=== PATIENT | male | born 1950 | race Caucasian/White ===

== ENCOUNTER 2020-09-18 03:33 | Outpatient (CLI) | payer OTHER, SELFPAY ==
[2020-09-18 19:05] LABS: SARS-CoV-2 RNA PCR Negative
== END 2020-09-18 03:34 | disposition home or self-care (01) ==
LOC: ANHCOVIDDT 03:33
PROVIDERS: Visit Provider Internal Medicine Gastroenterology
DX: Z01.812 Encounter for preprocedural laboratory examination (principal); Z20.828 Contact with and (suspected) exposure to other viral communicable diseases
CPT/HCPCS: 87635; C9803; U0003

== ENCOUNTER 2020-09-20 02:25 | Day surgery (SDC) | payer OTHER, SELFPAY ==
[2020-09-16 09:47] VITALS: BMI 39.2
[2020-09-20 08:47] VITALS: BP 140/79; PULSE 83; RESP 14; TEMP 37.1; O2SAT 95; BMI 38.5
[2020-09-20] MEDS: LACTATED RINGERS 1,000 ML 150 ML IV CONT (08:55)
--- NOTE | 2020-09-20 08:57 | WPDANESEPPF ---
Anes - Initial Pre Proc Eval Procedure: Operation Date: 09/20/20 09:30 Proposed Procedures p Colonoscopy - Thomas Magana MD Date/Time: 09/20/20 08:57 Surgeon: Thomas Magana MD Pre Op Diagnosis: Occult GI Bleed Patient Data Age: 70 Gender: M Height: 1.75 m Weight: 118.5 kg Last Vital Signs Temp 37.1 C 09/20/20 08:47 Pulse 83 09/20/20 08:47 Resp 14 09/20/20 08:47 BP 140/79 09/20/20 08:47 Pulse Ox 95 09/20/20 08:47 Allergies Allergy/AdvReac Type Severity Reaction Status Date / Time No Known Allergies Allergy Unknown Verified 09/20/20 08:43 Home Medications Medication Instructions Recorded Confirmed Type famotidine 40 mg PO DAILY 09/16/20 09/20/20 History losartan-hydrochlorothiazide 25 - 1,000 tablet PO DAILY 09/16/20 09/20/20 History meloxicam 15 mg PO PRN PRN 09/16/20 09/20/20 History mometasone 50 mcg INTRANASAL DAILY 09/16/20 09/20/20 History pantoprazole 40 mg PO DAILY 09/16/20 09/20/20 History pilocarpine HCl 5 mg PO DAILY 09/16/20 09/20/20 History Patient hx anesthesia problems: none Family hx anesthesia problems: none PMFSH Past Medical History Medical History (Updated 09/20/20 @ 08:58 by Anil Estrada MD) Chronic GERD HTN (hypertension) Obesity ANNIE on CPAP Social History Social History Smoking status: Never smoker Alcohol intake: current Alcohol use details: SOCIALLY Substance use: unknown Substance use type: does not use Living arrangements: with family Spiritual care concerns: No Anes - Eval Final PreProcedure Day of Procedure 09/20/20 08:57 Patient weight: obese Heart: regular rate and rhythm Lungs: clear to auscultation and normal air movement Airway: Mallampati scale class II Neurological: alert and oriented Last oral intake: >/= 8 hours ASA classification: III Emergent: no Anesthetic plan: proceed Anesthesia type and monitoring: general GIVS Informed Consent: The patient's anesthetic plan and its attendant risks and benefits were discussed with the patient/family/POA. Questions were solicited and answers provided to the satisfaction of the patient/family/POA.
--- NOTE | 2020-09-20 09:23 | WPDGICN ---
Assessment and Plan Assessment and plan (1) Occult blood in stools: Code(s): R19.5 - Other fecal abnormalities Status: Acute Assessment and Plan: Patient recently found to have Hemoccult-positive stools. Plan to evaluate with colonoscopy. Patient also reports a history of colon polyps of unknown histology type in 2011. Colonoscopy will follow separately. Further recommendations after endoscopy. (2) History of colon polyps: Code(s): Z86.010 - Personal history of colonic polyps Status: Acute GI Consult Note Consult date/time: 09/20/20 09:23 HPI: Pierce Phillip is a 70 year old male Seen in evaluation at the request of Dr. Jhony Giles. Patient was recently found to have positive Hemoccult in stool. He denies any obvious blood. He has had no pain. No bleeding. Past medical history is significant for colon polyps most recently 2011. Family history is noncontributory. patient presents today for colonoscopy. Review of Systems Review of Systems: All systems reviewed & are unremarkable except as noted in HPI and below PMFSH Past Medical History Medical History (Updated 09/20/20 @ 09:24 by Thomas Magana MD) Chronic GERD HTN (hypertension) Obesity ANNIE on CPAP Social History Social History Smoking status: Never smoker Alcohol intake: current Alcohol use details: SOCIALLY Substance use: unknown Substance use type: does not use Living arrangements: with family Spiritual care concerns: No Meds Home Medications and Allergies Home Medications Medication Instructions Recorded Confirmed Type famotidine 40 mg PO DAILY 09/16/20 09/20/20 History losartan-hydrochlorothiazide 25 - 1,000 tablet PO DAILY 09/16/20 09/20/20 History meloxicam 15 mg PO PRN PRN 09/16/20 09/20/20 History mometasone 50 mcg INTRANASAL DAILY 09/16/20 09/20/20 History pantoprazole 40 mg PO DAILY 09/16/20 09/20/20 History pilocarpine HCl 5 mg PO DAILY 09/16/20 09/20/20 History Allergies Allergy/AdvReac Type Severity Reaction Status Date / Time No Known Allergies Allergy Unknown Verified 09/20/20 08:43 Vital Signs Vital Signs - 24 hr 09/20/20 08:47 Temperature 98.7 F Pulse Rate 83 Respiratory Rate 14 Blood Pressure 140/79 Pulse Oximetry 95 Exam Narrative: Exam Narrative: Physical exam reveals patient to be alert. Vital signs stable. HEENT exam unremarkable. Lungs are clear to auscultation and percussion. Heart is without murmur or extra sounds. Abdominal exam bowel sounds are present soft nontender with no hepatosplenomegaly. Digital external rectal exam is normal.
[2020-09-20 09:48] VITALS: BP 110/62; PULSE 75; RESP 22; O2SAT 98
[2020-09-20 09:58] VITALS: BP 103/69; PULSE 77; RESP 25; O2SAT 96
[2020-09-20 10:13] VITALS: BP 122/70; PULSE 74; RESP 17; O2SAT 97
== END 2020-09-20 10:15 | disposition home or self-care (01) ==
PROVIDERS: Visit Provider Internal Medicine Gastroenterology
PROC: 0DJD8ZZ Inspection of Lower Intestinal Tract, Via Natural or Artificial Opening Endoscopic (ICD-10-PCS; CPT 45378; principal; 2020-09-20 09:30)
DX: R19.5 Other fecal abnormalities (principal); Z86.010 Personal history of colon polyps; K21.9 Gastro-esophageal reflux disease without esophagitis; K57.30 Diverticulosis of large intestine without perforation or abscess without bleeding; K64.8 Other hemorrhoids; I10 Essential (primary) hypertension; E66.9 Obesity, unspecified; G47.33 Obstructive sleep apnea (adult) (pediatric)
CPT/HCPCS: 45378; J2704; J7120

== ENCOUNTER 2020-10-10 09:30 | Outpatient (RCR) | payer OTHER, SELFPAY ==
--- NOTE | 2020-09-09 16:43 | PTOPEVAL ---
PHYSICAL THERAPY EVALUATION Thank you for referring Pierce Phillip to [facility] The patient is scheduled to be seen for therapy? 1-2 x/week for 4 weeks. Please review, sign, date and return this plan of care LUCY. I agree with and certify that the following plan of care is medically necessary. Referring Physician Date Attending Provider: Marcel Goldman MD *PT Outpatient Evaluation Start: 09/09/20 15:15 Freq: Status: Active Protocol: Document 09/09/20 15:15 MLV (Rec: 09/09/20 16:33 MLV [id number]) Therapy Assessment Status Evaluation Information Problem Diagnosis stefano. knee OA Onset 3-4 months Cause no injury/event Additional Evaluation Detail The patient has had trouble with knees but has become more noticeable. Patient reports increased gait deviations/limp . Subjective Information The patient believes he may Query Text:As Reported By Patient/ knee need knee replacement but Family is hoping to prolong need. The patient takes glucosamine which helps and takes meloxicam on occasion. Diagnostic Tests X-Rays For This Problem Yes: severe OA Previous Treatments Previous Treatments For This Problem cortisone injections prn Pain Assessment Timing of Pain Assessment Timing of Pain Assessment Pre-Treatment Pain Scale Pain Scale Used Numeric (1 - 10) Self Report Pain Assessment Bilateral Knee(s) Reported Pain Level 0 Pain Description Pressure Pain Frequency Chronic Lowest Pain Intensity 0 Greatest Pain Intensity 8 Pain Aggravating Factors Stair Climbing,Walking,Weight Bearing/Standing Other Pain Aggravating Factors supine; uses pillow to sleep well Pain Behaviors None Pain Relief Interventions Used By Inactivity/Rest,Medication Patient Pain Score Pain Score 0: Self Report Lower Extremity Range of Motion General Lower Extremity Range of Motion Gross Lower Extremity Range of Motion knee motion actively: left 0- Comments 122 degrees right knee 0-123 degrees Lower Extremity Muscle Strength Testing General Lower Extremity Strength Reason Not Measured WNL/Left,WNL/Right Gross Lower Extremity Strength muscle fatigue with 15 reps of tband exercises to LE's Muscle Length Testing Muscle Length Testing Piriformis w/Hip Neutral (L) Severe Tightness Duglas's Test Hip Muscle Length
--- NOTE | 2020-10-10 11:20 | PCPTNOTE ---
PHYSICAL THERAPY DISCHARGE SUMMARY Attending Provider: Marcel Goldman MD Patient:Pierce Phillip Date of :1950 Patient has completed 8 treatments since 09/09/2020, for stefano. knee pain/DJD. The patient is independent with his exercises and has improved in flexibility but the pain remains unchanged. The goals have been partially met and skilled PT needs have peaked. PT is discontinued at this time. Thank you for referring this patient to [facility]. Please review, sign, date and return this discharge summary LUCY. I have been updated about the patient's current status and I agree with discharge from the above service at this time. Referring Physician Date
== END 2020-10-10 15:17 | disposition home or self-care (01) ==
LOC: ANHPT 09:30
PROVIDERS: Visit Provider Orthopaedic Surgery
DX: M17.0 Bilateral primary osteoarthritis of knee (principal)
CPT/HCPCS: 97110; 97161

== ENCOUNTER 2020-12-06 17:25 | Emergency (ER) | payer OTHER, SELFPAY ==
[2020-12-06 17:34] VITALS: BP 129/73; PULSE 70; RESP 16; TEMP 36.4; O2SAT 97
[2020-12-06] MEDS: FLUORESCEIN SOD 1 MG/STRIP (18:44)
[2020-12-06] MEDS: DACRIOSE EYE IRRIGATION 118 ML BOTTLE (18:44)
--- NOTE | 2020-12-06 18:46 | PC.NURSE ---
[employer]le[employer] brand lacquer thinner is chemical that was in eye.
--- NOTE | 2020-12-06 19:48 | PC.NURSE ---
This nurse contacted poison control and spoke with [facility] pharmacist in regards to patient. [facility] recommended patient to have an eye exam performed to check for a corneal abrasion and supportive care. HUNTER notified.
--- NOTE | 2020-12-06 20:39 | ED.EYEPROB ---
HPI - Eye Problem General Chief complaint: Eye Problems Stated complaint: chemical in eye Time Seen by Provider: 12/06/20 19:34 Source: patient Mode of arrival: ambulatory Limitations: no limitations History of Present Illness HPI Narrative: This is a 70-year-old male that presents to the emergency department for foreign substance splashed in the right eye. Reports he was using lacquer thinner and accidentally splashed in of the right eye. Reports some irritation initially which has improved since onset. Reports he also felt like his vision was a little worse in the right eye. Reports this happened around 5. Denies swelling, abnormal drainage, eye pain, or vomiting. Related Data Home Medications Medication Instructions Recorded Confirmed famotidine 40 mg PO DAILY 09/16/20 09/20/20 losartan-hydrochlorothiazide 25 - 1,000 tablet PO DAILY 09/16/20 09/20/20 meloxicam 15 mg PO PRN PRN 09/16/20 09/20/20 mometasone 50 mcg INTRANASAL DAILY 09/16/20 09/20/20 pantoprazole 40 mg PO DAILY 09/16/20 09/20/20 pilocarpine HCl 5 mg PO DAILY 09/16/20 09/20/20 Allergies Allergy/AdvReac Type Severity Reaction Status Date / Time No Known Allergies Allergy Unknown Verified 12/06/20 18:43 Review of Systems Review of Systems: Narrative: CONSTITUTIONAL: Denies fever EYES: Reports visual changes. Denies redness, or discharge. All systems reviewed & are unremarkable except as noted in HPI and below PMFSH Past Medical History Medical History (Updated 12/06/20 @ 20:41 by Marnie Puckett PA-C) Chronic GERD HTN (hypertension) Obesity ANNIE on CPAP Social History Social History Smoking status: Never smoker Alcohol intake: current Substance use: unknown Substance use type: does not use Gender identity (if verbalized by the patient): Male Spiritual care concerns: No Exam Narrative: Exam Narrative: GENERAL: Well-appearing, well-nourished, and in no acute distress. HEAD: Normocephalic, atraumatic. EYES: PERRLA and EOMI. No conjunctival injection, swelling, or abnormal drainage. No foreign bodies noted, eyelid everted. No fluorescein stain uptake. Visual acuity in the right eye 20/40 and 20/20 in the left EXTREMITIES: Normal range of motion. No edema. SKIN: Warm, dry, no rash. NEURO: No focal deficits. Alert and oriented x3. PSYCH: Normal mood and affect Course Vital Signs Vital signs: Vital Signs Temperature 97.5 F L 12/06/20 17:34 Pulse Rate 70 12/06/20 17:34 Respiratory Rate 16 12/06/20 17:34 Blood Pressure 129/73 12/06/20 17:34 Pulse Oximetry 97 12/06/20 17:34 Temperature 97.5 F L 12/06/20 17:34 Pulse Rate 70 12/06/20 17:34 Respiratory Rate 16 12/06/20 17:34 Blood Pressure 129/73 12/06/20 17:34 Pulse Oximetry 97 12/06/20 17:34 MDM - Eye Problem MDM Narrative Medical decision making narrative: Patient presents to the emergency department for lacquer thinner that was accidentally splashed into the right eye. Did have some mild irritation in the eye initially which improved since onset. Eye was examined and washed out. We did speak with poison control that reported this is managed with symptomatic care. No concerning visual changes on visual acuity. No foreign bodies or corneal abrasions noted. Patient was instructed to follow-up with his eye doctor. He was given warnings to return the ER Critical Care Time Critical Care Time Critical Care Time: No Discharge Plan Discharge Clinical Impression: Irritation of right eye Patient Disposition: Home, Self-Care Condition: Stable Instructions: Eye Wash (Into the eye) Additional Instructions: Return to the emergency department if you experience fever, vision changes, eye pain, vomiting, or any other symptoms that are concerning to you Follow-up with your eye doctor Prescriptions: No Action pilocarpine HCl 5 mg tablet 5 mg PO DAILY RF: 0 meloxicam 15 mg tablet 15 mg PO PRN PRN (Reason: AR
[2020-12-06 20:48] VITALS: BP 137/88; PULSE 68; RESP 18; O2SAT 98
== END 2020-12-06 20:50 | disposition home or self-care (01) ==
PROVIDERS: Emergency Provider Emergency Medicine; PCP Family Medicine Adolescent Medicine
DX: H57.11 Ocular pain, right eye (principal); Z77.098 Contact with and (suspected) exposure to other hazardous, chiefly nonmedicinal, chemicals; K21.9 Gastro-esophageal reflux disease without esophagitis; I10 Essential (primary) hypertension; G47.33 Obstructive sleep apnea (adult) (pediatric); E66.9 Obesity, unspecified; Z68.37 Body mass index [BMI] 37.0-37.9, adult
CPT/HCPCS: 99283; A9270

== ENCOUNTER 2021-05-21 09:30 | Outpatient (CLI) | payer OTHER, SELFPAY ==
--- NOTE | 2021-05-21 12:00 | NEURO_ITS ---
Impression: # Complains of numbness of hands. # Severe bilateral Carpal Tunnel Syndrome, left more than right. # No ulnar neuropathy. # Abnormal needle/EMG exam in bilateral APB suggestive of denervation potentials. Nerve Conduction Studies Anti Sensory Summary Table Stim Site NR Peak (ms) P-T Amp (?V) Site1 Site2 Delta-P (ms) Dist (cm) Chase (m/s) Left Median Anti Sensory (2-3nd Digit) NO RESPONSE Wrist NR Wrist 2-3nd Digit 14.0 Wrist NR Wrist 2-3nd Digit 14.0 Right Median Anti Sensory (2-3nd Digit) NO RESPONSE Wrist 6.3 19.6 Wrist 2-3nd Digit 6.3 14.0 22 Wrist NR Wrist 2-3nd Digit 6.3 14.0 22 Left Radial Anti Sensory (Base 1st Digit) Wrist 2.3 14.9 Wrist Base 1st Digit 2.3 0.0 Right Radial Anti Sensory (Base 1st Digit) Wrist 2.4 10.0 Wrist Base 1st Digit 2.4 0.0 Left Ulnar Anti Sensory (5th Digit) Wrist 2.9 42.8 Wrist 5th Digit 2.9 14.0 48 Right Ulnar Anti Sensory (5th Digit) Wrist 2.8 30.3 Wrist 5th Digit 2.8 14.0 50 Motor Summary Table Stim Site NR Onset (ms) O-P Amp (mV) Site1 Site2 Delta-0 (ms) Dist (cm) Chase (m/s) Left Median Motor (Abd Poll Brev) NO RESPONSE Wrist NR Elbow Wrist 26.0 Elbow NR Right Median Motor (Abd Poll Brev) Wrist 12.3 1.6 Elbow Wrist 6.5 28.0 43 Elbow 18.8 1.6 Left Ulnar Motor (Abd Dig Minimi) Wrist 2.7 7.1 A Elbow Wrist 6.1 32.0 52 A Elbow 8.8 5.9 Right Ulnar Motor (Abd Dig Minimi) Wrist 2.6 8.6 A Elbow Wrist 5.8 31.0 53 A Elbow 8.4 7.3 F Wave Studies NR F-Lat (ms) L-R F-Lat (ms) Left Median (Mrkrs) (Abd Poll Brev) 34.15 0.82 Right Median (Mrkrs) (Abd Poll Brev) 34.97 0.82 Left Ulnar (Mrkrs) (Abd Dig Min) 32.91 1.66 Right Ulnar (Mrkrs) (Abd Dig Min) 31.25 1.66 EMG Side Muscle Nerve Root Ins Act Fibs Amp Dur Recrt Comment Right 1stDorInt Ulnar C8-T1 Nml Nml Nml Nml Nml Right Ext Indicis Radial (Post Int) C7-8 Nml Nml Nml Nml Nml Right Ext Digitorum Radial (Post Int) C7-8 Nml Nml Nml Nml Nml Right BrachioRad Radial C5-6 Nml Nml Nml Nml Nml Right PronatorTeres Median C6-7 Nml Nml Nml Nml Nml Right Abd Poll Brev Median C8-T1 Nml Nml Decr >12ms Reduced Left 1stDorInt Ulnar C8-T1 Nml Nml Nml Nml Nml Left Ext Indicis Radial (Post Int) C7-8 Nml Nml Nml Nml Nml Left Ext Digitorum Radial (Post Int) C7-8 Nml Nml Nml Nml Nml Left BrachioRad Radial C5-6 Nml Nml Nml Nml Nml Left PronatorTeres Median C6-7 Nml Nml Nml Nml Nml Left Abd Poll Brev Median C8-T1 Nml Nml Decr >12ms Reduced MTDD
== END 2021-05-21 09:31 | disposition home or self-care (01) ==
PROVIDERS: PCP Family Medicine Adolescent Medicine; Visit Provider Orthopaedic Surgery
DX: G56.03 Carpal tunnel syndrome, bilateral upper limbs (principal)
CPT/HCPCS: 95886; 95911

== ENCOUNTER 2021-06-16 13:14 | Outpatient (CLI) | payer OTHER, SELFPAY ==
--- NOTE | 2021-06-16 | ECG_ITS ---
Measurements Intervals [place] Rate: 72 P: -1 AL: 137 QRS: 6 QRSD: 109 T: 27 QT: 366 QTc: 403 Interpretive Statements SINUS RHYTHM CONSIDER INFERIOR INFARCT, AGE INDETERMINATE ABNORMAL ECG Electronically Signed On 06-16-2021 14:10:21 CDT by Phu Morton D.O.
[2021-06-16 14:21] LABS: Anion Gap 9 mmol/L (8-16); Blood Urea Nitrogen 25 mg/dL (9-20); Carbon Dioxide 28 mmol/L (22-30); Chloride 102 mmol/L (98-107); Estimated Glomerular Filt Rate > 60; Glucose 133 mg/dL (65-110); Potassium 3.9 mmol/L (3.4-5.0); Sodium 139 mmol/L (137-145)
== END 2021-06-16 13:15 | disposition home or self-care (01) ==
PROVIDERS: PCP Family Medicine Adolescent Medicine; Visit Provider Orthopaedic Surgery
DX: Z01.818 Encounter for other preprocedural examination (principal); R94.31 Abnormal electrocardiogram [ECG] [EKG]
CPT/HCPCS: 36415; 80048; 93005

== ENCOUNTER 2021-09-30 07:50 | Outpatient (CLI) | payer OTHER, SELFPAY ==
[2021-09-30 09:28] LABS: Basophils Percent Auto 0.5 % (0.2-1.2); Eosinophils Absolute Auto 0.2 K/mm3 (0-0.3); Eosinophils Percent Auto 3.5 % (0-4.4); Hematocrit 43.5 % (42.0-52.0); Hemoglobin 14.6 g/dL (14.0-18.0); Immature Granulocyte Absolute 0.01 K/mm3 (0.00-0.031); Immature Granulocyte Percent A 0.2 % (0-0.5); Lymphocytes Absolute Auto 1.43 K/mm3 (0.9-3.2); Lymphocytes Percent Auto 24.1 % (18.3-44.2); Mean Corpuscular HGB Conc 33.6 g/dl (32-36); Mean Corpuscular Hemoglobin 30.1 pg (26-34); Mean Corpuscular Volume 89.7 fl (80-100); Mean Platelet Volume 10.6 fl (7.4-10.4); Monocytes Absolute Auto 0.6 K/mm3 (0.1-0.6); Monocytes Percent Auto 10.1 % (2.6-8.5); Neutrophils Absolute Auto 3.7 K/mm3 (1.3-6.7); Neutrophils Percent Auto 61.6 % (45.5-73.1); Platelet Count Result 196 k/mm3 (150-375); Red Blood Count 4.85 M/mm3 (4.6-6.20); Red Cell Distribution Width 14.3 % (11.5-14.5); White Blood Count 5.9 K/mm3 (4.5-10.0)
[2021-09-30 09:37] LABS: Albumin Level 4.1 g/dL (3.5-5.1)
[2021-09-30 09:40] LABS: Anion Gap 9 mmol/L (8-16); Blood Urea Nitrogen 17 mg/dL (9-20); Calcium 9.6 mg/dL (8.4-10.2); Carbon Dioxide 28 mmol/L (22-30); Chloride 104 mmol/L (98-107); Estimated Glomerular Filt Rate > 60; Glucose 147 mg/dL (65-110); Potassium 4.1 mmol/L (3.4-5.0); Sodium 141 mmol/L (137-145)
[2021-09-30 09:51] LABS: Hemoglobin A1C 6.5 % (<5.7); Urine Cotinine NEGATIVE
== END 2021-09-30 07:51 | disposition home or self-care (01) ==
LOC: ANHSURGERY 07:54
PROVIDERS: Anesthesiology; PCP Family Medicine Adolescent Medicine; Visit Provider Orthopaedic Surgery
DX: M17.11 Unilateral primary osteoarthritis, right knee (principal); Z01.818 Encounter for other preprocedural examination; Z51.81 Encounter for therapeutic drug level monitoring
CPT/HCPCS: 36415; 80048; 80307; 82040; 83036; 85025

== ENCOUNTER → 2021-12-16 15:05 | Outpatient (CLI) | payer OTHER, SELFPAY ==
--- NOTE | ~2021-12-16 | XR_ITS ---
EXAMINATION: XR hip LT min 2V DATE: 12/16/2021 15:36 INDICATION: Left hip pain. TECHNIQUE: 2 views of left hip were obtained. COMPARISON: None. FINDINGS: Bone alignment is normal. No fracture. There is mild left hip osteoarthritis. IMPRESSION: 1. Mild left hip osteoarthritis. Reviewed, dictated and finalized at location A. COMPILER
--- NOTE | ~2021-12-16 | XR_ITS ---
EXAMINATION: XR sacrum coccyx min 2V DATE: 12/16/2021 15:36 INDICATION: Sacrococcygeal disorders, not elsewhere classified. TECHNIQUE: 3 views of the sacrum and coccyx were obtained. COMPARISON: None. FINDINGS: Bone alignment is normal. No fracture. There is severe lumbar spondylosis. There is mild os teoarthritis of the sacroiliac joints and hip joints. IMPRESSION: 1. Severe lumbar spondylosis. 2. Polyarticular osteoarthritis. Reviewed, dictated and finalized at location A. LEVEL GAME DESIGNER
== END ==
PROVIDERS: PCP Family Medicine Adolescent Medicine; Visit Provider Family Medicine Adolescent Medicine
DX: M53.3 Sacrococcygeal disorders, not elsewhere classified (principal); M47.896 Other spondylosis, lumbar region; M16.12 Unilateral primary osteoarthritis, left hip
CPT/HCPCS: 72220; 73502

== ENCOUNTER 2022-04-06 07:47 | Outpatient (CLI) | payer OTHER, SELFPAY ==
[2022-04-06 09:23] LABS: Basophils Percent Auto 0.7 % (0.2-1.2); Eosinophils Absolute Auto 0.2 K/mm3 (0-0.3); Eosinophils Percent Auto 3.2 % (0-4.4); Hemoglobin 14.1 g/dL (14.0-18.0); Immature Granulocyte Absolute 0.01 K/mm3 (0.00-0.031); Immature Granulocyte Percent A 0.2 % (0-0.5); Lymphocytes Absolute Auto 1.53 K/mm3 (0.9-3.2); Lymphocytes Percent Auto 25.6 % (18.3-44.2); Mean Corpuscular Volume 87.5 fl (80-100); Mean Platelet Volume 10.1 fl (7.4-10.4); Monocytes Absolute Auto 0.5 K/mm3 (0.1-0.6); Neutrophils Absolute Auto 3.7 K/mm3 (1.3-6.7); Neutrophils Percent Auto 62.3 % (45.5-73.1); Platelet Count Result 193 k/mm3 (150-375); Red Blood Count 5.03 M/mm3 (4.6-6.20); Red Cell Distribution Width 15.9 % (11.5-14.5)
[2022-04-06 09:29] LABS: Appearance Urine Clear (Clear); Bilirubin Urine Negative (Negative); Blood Urine Negative (Negative); Color Urine Yellow (Yellow); Glucose Urine UA Negative (Negative); Ketones Urine Negative (Negative); Leukocyte Esterase Ur Negative LEU/UL (Negative); Nitrate Urine Negative (Negative); Protein Urine Negative (Negative); Urobilinogen Urine 0.2 mg/dL (<2.0)
[2022-04-06 09:39] LABS: INR 1.1; Prothrombin Time 14.1 Seconds (11.1-14.7)
[2022-04-06 09:40] LABS: Partial Thromboplastin Time 28.2 SECONDS (22.3-36.8)
[2022-04-06 09:41] LABS: Urine Cotinine NEGATIVE
[2022-04-06 09:43] LABS: Add Urine Microscopic? NO
[2022-04-06 09:56] LABS: Hemoglobin A1C 6.4 % (<5.7)
[2022-04-06 09:57] LABS: Anion Gap 6 mmol/L (8-16); Blood Urea Nitrogen 18 mg/dL (9-20); Calcium 9.2 mg/dL (8.4-10.2); Carbon Dioxide 29 mmol/L (22-30); Chloride 105 mmol/L (98-107); Estimated Glomerular Filt Rate > 60; Glucose 157 mg/dL (65-110); Potassium 3.9 mmol/L (3.4-5.0); Sodium 140 mmol/L (137-145)
== END 2022-04-06 07:48 | disposition home or self-care (01) ==
LOC: ANHSURGERY 07:51
PROVIDERS: PCP Family Medicine Adolescent Medicine; Visit Provider Orthopaedic Surgery
DX: M17.12 Unilateral primary osteoarthritis, left knee (principal); Z01.818 Encounter for other preprocedural examination
CPT/HCPCS: 80048; 80307; 81003; 82040; 83036; 85025; 85610; 85730; 87081

== ENCOUNTER 2022-04-29 00:50 | Day surgery (SDC) | payer OTHER, SELFPAY ==
[2022-04-06 08:00] VITALS: BMI 38.6
--- NOTE | 2022-04-06 08:37 | PC.NURSE ---
Report to the Outpatient Waiting Room, entrance under the green pavilion located off [facility], at time __0600 on date _04/29/22 . OR Time: _729 . - You and your visitor will be asked a series of questions to screen for COVID 19 for your protection. - Only one visitor is allowed at this time. - The patient visitor is requested to leave or wait in car when not with patient. - A mask is required within the hospital. Patients may have clear liquids (water, carbonated beverages, clear teas, apple juice) until 3 hours prior to surgery with a maximum of 20 ounces. - No food from midnight until time of surgery - Infants may have breast milk until 4 hours before surgery, infant formula 6 hours prior to surgery. - Children will be allowed to drink immediately following surgery. If applicable, please bring a bottle or sippy cup to assist with drinking. Juice, water, soda, and popsicles are readily available. For infants on formula, please bring formula the day of surgery. Pacifiers are allowed. Take the following medications with a SIP of water the morning of surgery: __EYE DROPS Medications to discontinue per physician _ASPIRIN ,MELOXICAM PER DR CANSECO ALL VITAMINS AND SUPPLEMENTS 3 DAYS PRE OP Date to take last dose__ALL VITAMNS AND SUPPLEMENTS 04/25/22 Please no make-up, nail hebrew, hairspray, perfume, deodorant, or body powder the day of surgery. No jewelry (including any body piercings) or valuables the day of surgery, leave them at home. Please take a shower or bath the night before, or the morning of, surgery with an antibacterial soap. Wear comfortable, loose fitting clothing. Children are encouraged to wear pajamas. - Jewelry must be removed prior to entering the operating room. Rings and piercings that are not removed may be cut off. - The hospital will not accept responsibility for valuables. - Please leave all valuables, including medications, at home the day of surgery. If you are going home after surgery, a licensed class a truck driver must drive you home. - NO public transportation without another adult. - We recommend that an adult stay with you for 24 hours following discharge. - We also recommend that you do not drive, make important decision, drink alcoholic beverages, or take any drugs that were not prescribed by your health care provider for at least 24 hours after your discharge time. Follow any additional instructions given to you from your surgeon. If you or anyone in your household have experienced Covid symptoms in the past week, please notify your surgeon or the nurse liaison at the phone number below for possible testing. VERBAL AND WRITTEN instructions given to _PATIENT and asked if any additional questions and then verbalized understanding. Patient advised to call surgeon office or pre surgery nurse liaison [phone] if any additional questions.
[2022-04-06 08:58] VITALS: BP 136/77; PULSE 83; RESP 18; TEMP 37.4; O2SAT 99
[2022-04-29] VITALS (13 sets, daily range): BP systolic 123–152; BP diastolic 69–82; PULSE 72–93; RESP 9–16; TEMP 36.3–36.9; O2SAT 91–100
--- NOTE | ~2022-04-29 | XR_ITS ---
EXAMINATION: XR knee LT 2V DATE: 04/29/2022 10:40 INDICATION: Total left knee arthroplasty. Postop. TECHNIQUE: 2 views of left knee were obtained. COMPARISON: Left knee radiographs 03/12/2022 FINDINGS: There is a total left knee arthroplasty in near-anatomic alignment. No fracture. There has been resection of osteophytes of the patella. There are loose bodies in a Torres's cyst. There is gas in the knee joint and soft tissues, consistent with recent surgery. Anterior skin stewart are noted. IMPRESSION: 1. Total left knee arthroplasty in near-anatomic alignment. 2. Loose bodies in a Torres's cyst. Reviewed, dictated and finalized at location A.
[2022-04-29] MEDS: TRANEXAMIC ACID 1,000MG/ISO100 1,000 MG/100 ML BAG 200 MG IVPB (06:53)
[2022-04-29] MEDS: ACETAMINOPHEN 500 MG TABLET 1000 MG PO (06:54)
--- NOTE | 2022-04-29 07:09 | WPDANESEPPF ---
Anes - Initial Pre Proc Eval Procedure: Operation Date: 04/29/22 07:30 Proposed Procedures p Left Total Knee Arthroplasty - Durga Tucker MD Date/Time: 04/29/22 07:09 Surgeon: Durga Tucker MD Pre Op Diagnosis: Lt Knee DJD Patient Data Age: 71 Gender: M Height: 1.77 m Weight: 120.5 kg Last Vital Signs Temp 37.4 C 04/06/22 08:58 Pulse 83 04/06/22 08:58 Resp 18 04/06/22 08:58 BP 136/77 04/06/22 08:58 Pulse Ox 99 04/06/22 08:58 O2 Del Method Room Air 04/06/22 08:58 Allergies Allergy/AdvReac Type Severity Reaction Status Date / Time No Known Allergies Allergy Unknown Verified 04/29/22 06:27 Home Medications Medication Instructions Recorded Confirmed Type meloxicam 15 mg tablet 15 mg PO PRN PRN ARTHRITIS 09/16/20 04/29/22 History mometasone 50 mcg/actuation nasal 50 mcg intranasal QAM 09/16/20 04/29/22 History spray pantoprazole 40 mg tablet,delayed 40 mg PO DAILY 09/16/20 04/29/22 History release atorvastatin 20 mg tablet 20 mg PO DAILY 09/30/21 04/29/22 History azelastine 205.5 mcg (0.15 %) 2 spray intranasal PRN PRN 09/30/21 04/29/22 History nasal spray Congestion calcium 500 mg tablet 500 mg PO DAILY 09/30/21 04/29/22 History cholecalciferol (vitamin D3) 50 50 mcg PO DAILY 09/30/21 04/29/22 History mcg (2,000 unit) tablet cyanocobalamin (vitamin B-12) 1,000 mcg PO DAILY 09/30/21 04/29/22 History 1,000 mcg tablet (Vitamin B-12) latanoprost 0.005 % eye drops 1 drp EACH EYE HS 09/30/21 04/29/22 History multivitamin 1 tablet PO DAILY 09/30/21 04/29/22 History omega-3 fatty acids-vitamin E 1 cap PO DAILY 09/30/21 04/29/22 History 1,000 mg capsule vitamin E 1,000 unit tablet 1 tablet PO DAILY 09/30/21 04/29/22 History famotidine 40 mg tablet 40 mg PO HS #90 tabs 12/25/21 04/29/22 Rx testosterone cypionate 200 mg/mL 200 mg IM .once every 3 weeks #4 mL 01/05/22 04/29/22 Rx intramuscular oil (Depo-Testosterone) aspirin 81 mg tablet,delayed 81 mg PO DAILY 01/19/22 04/29/22 History release (Adult Aspirin Regimen) lutein 6 mg capsule 6 mg PO DAILY 01/19/22 04/29/22 History simethicone 125 mg capsule (Gas 125 mg PO DAILY PRN BLOATING 01/19/22 04/29/22 History Relief (simethicone)) losartan 100 1 tablet PO QAM #100 tabs 03/26/22 04/29/22 Rx mg-hydrochlorothiazide 25 mg tablet acetaminophen 650 mg 650 mg PO Q12H PRN Pain 04/06/22 04/29/22 History tablet,extended release (Tylenol 8 Hour) carboxymethylcellulose sodium 1 % 2 drp EACH EYE DAILY 04/06/22 04/29/22 History eye liquid gel drops coQ10 (ubiquinol) 100 mg capsule 100 mg PO DAILY 04/06/22 04/29/22 History sildenafil 100 mg tablet 100 mg PO PRN ERECTIAL DYSFUNCTION 04/06/22 04/29/22 History clotrimazole-betamethasone 1 1 applic topical BID 2 weeks #45 04/20/22 04/29/22 Rx %-0.05 % topical cream grams glucosamine sulf dipot 2 cap PO DAILY 04/20/22 04/29/22 History chlr,msm,chond 550 mg-C 30 mg-mari 1 mg capsule (Glucosamine Chondroitin) pilocarpine HCl 5 mg tablet 10 mg PO TID 04/20/22 04/29/22 History Patient hx anesthesia problems: none Family hx anesthesia problems: none Results Review: All pre-operative results and documents have been reviewed as part of the pre-operative evaluation. [facility] Past Medical History Medical History Bilateral primary osteoarthritis of knee Carpal tunnel syndrome on both sides Chronic GERD Fungal infection History of colon polyps HTN (hypertension) Knee cartilage, torn, right Left hip pain Male erectile dysfunction, unspecified Normal colonoscopy 09/17 Repeat 09/27 Obesity Occult blood in stools ANNIE on CPAP Osteoarthritis of left hip 12/20 mild Other ill-defined heart diseases Diastolic dysfunction Echo 11/18 Presbycusis, bilateral Pure hyperglyceridemia Sacrocoxalgia of right side of sacrum Testicular hypofunction Type 2 diabetes mellitus without complicatio
--- NOTE | 2022-04-29 07:10 | WPDHPUPDATE1 ---
History and Physical Update Update Date/Time: 04/29/22 07:10 History and Physical has been reviewed, including an updated exam of the patient. There are NO changes in the patient's condition. Risks, benefits, and alternatives have been discussed and questions answered. Patient agrees to proceed with procedure.
[2022-04-29] MEDS: ceFAZolin 3 GM/D5W 100 ML 100 ML IVPB (07:27)
[2022-04-29] MEDS: GENTAMICIN BONE CEMENT REFOBACIN 1 EACH TOPICAL (08:10)
[2022-04-29] MEDS: TRANEXAMIC ACID 1,000 MG/10 ML AMPUL 1000 MG IV PUSH (09:24)
[2022-04-29] MEDS: LACTATED RINGERS 1,000 ML 30 ML IV CONT (10:21)
--- NOTE | 2022-04-29 10:31 | WPDANESPNB ---
Anes - Peripheral Nerve Block Date/Time: 04/29/22 10:31 I have discussed with the patient/family/POA the placement of a peripheral nerve block for post-operative pain management, including associated risks, benefits, complications, and side effects. Alternative methods of post-operative analgesia were detailed. Questions were solicited and answers provided to the satisfaction of the patient/family/POA. Time-Out: A pre-procedural Time-Out was completed immediately before starting the procedure and confirmed: Patient Identification, Site, Procedure, Patient Position and the Availability of Requisite Equipment. Clinical Indications: Acute post-operative pain management requested by the operative surgeon. Nerve Block Insertion Note Anes-nerve block: adductor canal Patient position: supine Skin prep: chlorhexidine Needle: 22 gauge, stimulating, insulated echogenic needle. Needle length: 80 mm Technique: ultrasound Technique comment: done post op no extra sedation Injectate: bupivacaine 0.5% with epi 5 mcg/ml (30ml no epi) Observations: tolerated well Complications: none Procedure start time:: 1031 Procedure end time:: 1033
[2022-04-29 10:37] LABS: Glucose Point of Care 173 mg/dl (65-105)
--- NOTE | 2022-04-29 10:40 | W.PM.PROC2 ---
Procedure Note - Detailed Date of Procedure 04/29/22 Pre-op Diagnosis Lt Knee DJD Post-op Diagnosis Same Procedure Performed L TKA Surgeon Durga Tucker MD Anesthesia General Description of Procedure THE LEFT KNEE WAS PREPPED AND DRAPED IN THE STERILE FASHION. A MIDLINE SKIN INCISION WAS MADE. A MEDIAL PARAPATELLAR ARTHROTOMY WAS MADE. THE PATELLA WAS EVERTED. THERE WAS TRICOMPARTMENT DJD. THERE WAS MINIMAL PATELLA DJD. AN INTRAMEDULLARY ANTONIO WAS PLACED IN THE FEMUR. A DISTAL FEMORAL CUT WAS MADE IN 5 DEGREES OF VALGUS REMOVING APPROXIMATELY 9 MM OF BONE FROM THE DISTAL FEMUR. THE FEMUR WAS SIZED TO 67.5. A 67.5 FEMORAL CUTTING BLOCK WAS PLACED IN 3 DEGREES OF EXTERNAL ROTATION AND IN ALIGNMENT WITH GABI'S LINE AND THE TRANSEPICONDYLAR AXIS. ANTERIOR POSTERIOR AND CHAMFER CUTS WERE MADE. THE CUTS WERE EXCELLENT. NEXT AN INTRAMEDULLARY CUTTING GUIDE WAS PLACED IN THE TIBIA. A TRANS TIBIAL CUT WAS MADE ALONG THE LONG AXIS OF THE TIBIA. APPROXIMATELY 10 MM OF BONE WAS REMOVED FROM THE HIGH SIDE OF THE TIBIA. THE TIBIA WAS THEN PLANED TO A SMOOTH SURFACE. POSTERIOR FEMORAL OSTEOPHYTES WERE REMOVED FROM THE FEMORAL CONDYLES. A 75 TIBIAL TRIAL WAS PLACED IN ALIGNMENT WITH THE 1/3 MEDIAL ASPECT OF THE TIBIAL TUBERCLE. THEN A 67.5 FEMORAL TRIAL COMPONENT WAS PLACED. BOTH HAD EXCELLENT FITS. EVENTUALLY A 12 MM CR POLYETHYLENE TRIAL COMPONENT WAS PLACED. THE KNEE WAS TAKEN THROUGH A RANGE OF MOTION. THE KNEE CAME OUT TO FULL EXTENSION. THERE WAS NO ABNORMAL TILT TO THE PATELLA. THERE WAS GOOD A/P AND VARUS/VALGUS STABILITY. THERE WAS NO EXCESSIVE ROLL BACK WITH FLEXION. THE TRIAL COMPONENTS WERE REMOVED. THEN A 67.5 FEMORAL COMPONENT AND 75 TIBIAL COMPONENT WITH A 12 CR POLYETHYLENE COMPONENT WERE CEMENTED INTO PLACE. ONCE THE CEMENT WAS HARD THE KNEE WAS TAKEN THROUGH A ROM AGAIN AND FOUND TO BE STABLE WITH NO PATELLA TILT NO EXCESSIVE ROLL BACK WITH FLEXION AND GOOD STABILITY WITH COMPLETE AND FULL EXTENSION. THE KNEE WAS IRRIGATED WITH STERILE BETADINE AND WATER FOR ABOUT 3 MINUTES. THE BLEEDERS WERE CAUTERIZED. THE ARTHROTOMY WAS REPAIRED WITH NUMBER 1 VICRYL. THE SUB CUTANEOUS LAYER WITH 2-0 VICRYL AND THE SKIN WITH DEE DEE. THE WOUND WAS WASHED AND A STERILE DRESSING WAS APPLIED. PATIENT WAS EXTUBATED. Estimated Blood Loss -350.0 Pathology None sent Complications No immediate complications Condition Stable Disposition PACU
--- NOTE | 2022-04-29 10:43 | SUR.PHASEI ---
DR. URBAN ADMINISTERED NERVE BLOCK TO LEFT THIGH. PORTABLE XRAY TO LEFT KNEE DONE PER TECH.
--- NOTE | 2022-04-29 11:18 | SUR.PHASEI ---
SBAR SENT TO 2 [facility].
--- NOTE | 2022-04-29 12:08 | ADMGEN ---
This patient, Pierce Phillip, was admitted to Medical Room 252-01. Patient/family oriented to hospital policies and general routines including ID bracelet, bed and alarms, visiting hours, pain management, procedures, bathroom and other care routines, personal items, smoking policy, room service/diet, and visiting hours. Information on how to activate the Rapid Response Team has been discussed. Patient/Family are encouraged to report perceived risks to care and to ask questions if they do not understand what they are told or what they should do.
[2022-04-29] MEDS: SODIUM CHLORIDE 0.9% IV 1,000 ML 125 ML IV CONT (12:38)
[2022-04-29] MEDS: ONDANSETRON INJ 4 MG/2 ML VIAL IV PUSH (12:39)
[2022-04-29] MEDS: ceFAZolin 2 GM/D5W 50 ML 2 GM/50 ML BAG IVPB ×2 (16:47→23:46)
[2022-04-29] MEDS: SENNA/DOCUSATE SODIUM TABLET 2 TAB PO (17:36)
[2022-04-29] MEDS: oxyCODONE/ACETAMINOPHEN (*CRX) 5-325 MG TABLET 1 TABLET PO (21:06)
[2022-04-29] MEDS: FAMOTIDINE 20 MG TABLET 40 MG PO (21:06)
[2022-04-29] MEDS: LATANOPROST 0.005% OP SOLN 2.5 ML BTL 1 DROP EACH EYE (21:07)
[2022-04-30 01:05] VITALS: BP 115/70; PULSE 89; RESP 16; TEMP 36.6; O2SAT 98
[2022-04-30 05:54] LABS: Basophils Percent Auto 0.2 % (0.2-1.2); Hematocrit 35.2 % (42.0-52.0); Hemoglobin 10.9 g/dL (14.0-18.0); Immature Granulocyte Absolute 0.07 K/mm3 (0.00-0.031); Immature Granulocyte Percent A 0.5 % (0-0.5); Lymphocytes Absolute Auto 1.27 K/mm3 (0.9-3.2); Lymphocytes Percent Auto 9.2 % (18.3-44.2); Mean Corpuscular Hemoglobin 27.6 pg (26-34); Mean Corpuscular Volume 89.1 fl (80-100); Mean Platelet Volume 10.8 fl (7.4-10.4); Monocytes Absolute Auto 1.5 K/mm3 (0.1-0.6); Monocytes Percent Auto 10.8 % (2.6-8.5); Neutrophils Percent Auto 79.3 % (45.5-73.1); Platelet Count Result 194 k/mm3 (150-375); Red Blood Count 3.95 M/mm3 (4.6-6.20); Red Cell Distribution Width 15.5 % (11.5-14.5); White Blood Count 13.8 K/mm3 (4.5-10.0)
[2022-04-30 06:12] VITALS: BP 134/74; PULSE 87; RESP 16; TEMP 37.1; O2SAT 100
[2022-04-30 06:14] LABS: Anion Gap 2 mmol/L (8-16); Blood Urea Nitrogen 19 mg/dL (9-20); Calcium 8.3 mg/dL (8.4-10.2); Carbon Dioxide 29 mmol/L (22-30); Chloride 104 mmol/L (98-107); Estimated CRCL calculation 85 ml/min; Estimated Glomerular Filt Rate > 60; Glucose 149 mg/dL (65-110); Potassium 4.3 mmol/L (3.4-5.0); Sodium 135 mmol/L (137-145)
[2022-04-30] MEDS: ceFAZolin 2 GM/D5W 50 ML 2 GM/50 ML BAG IVPB (06:34)
[2022-04-30] MEDS: ASPIRIN 325 MG ENTERIC TABLET 650 MG PO (08:29)
[2022-04-30] MEDS: SENNA/DOCUSATE SODIUM TABLET 2 TAB PO (08:29)
[2022-04-30] MEDS: CHOLECALCIFEROL 1,000 UNITS TABLET 2000 UNITS PO (08:29)
[2022-04-30] MEDS: CALCIUM CARBONATE (OSCAL) 500 MG TABLET PO (08:30)
[2022-04-30] MEDS: hydroCHLOROthiazide 25 MG TABLET PO (08:30)
[2022-04-30] MEDS: VITAMIN E 1,000 UNIT CAPSULE 1000 UNIT PO (08:30)
[2022-04-30] MEDS: ATORVASTATIN 20 MG TABLET PO (08:31)
[2022-04-30] MEDS: polyethylene glycoL 3350 17 GM POWD.PACK PO (08:31)
[2022-04-30] MEDS: LOSARTAN POTASSIUM 100 MG TABLET PO (08:31)
[2022-04-30] MEDS: FLUTICASONE PROPIONATE 0.05% NA SPR 16 GM BTL (*BKC) 2 SPRAY NASAL (08:32)
[2022-04-30] MEDS: ARTIFICIAL TEARS OPHTH SOLN 15 ML BOTTLE 2 DROP EACH EYE (08:34)
[2022-04-30] MEDS: oxyCODONE/ACETAMINOPHEN (*CRX) 5-325 MG TABLET 1 TABLET PO (08:45)
--- NOTE | 2022-04-30 09:21 | PM.PNORT ---
Progress Note: A&P Assessment and Plan (1) S/P total knee replacement: Qualifiers: Laterality: left Qualified Code(s): Z96.652 - Presence of left artificial knee joint Code(s): Z96.659 - Presence of unspecified artificial knee joint Status: Acute Assessment and Plan: POD #1 : Left TKA Continue PT/OT. WBAT. Walker. HIGH FALL RISK. Continue pain control. Ice Knee. Protect skin. DVT prophylaxis with Aspirin. SCDs. Incentive Spirometry Use reviewed. Monitor Dressing. Change prior to discharge. Bowel Regimen. Dispo: Home with home health pending progress with PT/OT Time Spent With Patient Time with patient: less than 15 minutes Subjective Subjective Date/Time Seen: 04/30/22 09:21 Post Op day: 1 Interval history: POD #1: Left TKA Patient doing well. Sitting up in chair. Working with OT at time of exam. Pain well controlled. Hopeful for discharge home today. Review of Systems Review of Systems: All systems reviewed & are unremarkable except as noted in HPI and below Constitutional: Constitutional: Denies fever(s) and Denies headache(s) ENT: Denies headache(s) Cardiovascular: Cardiovascular: Denies chest pain, Denies diaphoresis, Denies lightheadedness, Denies palpitations and Denies dyspnea Respiratory: Respiratory: Denies dyspnea Gastrointestinal: Gastrointestinal: Denies abdominal pain, Denies constipation, Reports nausea and Denies vomiting Genitourinary: Genitourinary: Denies dysuria and Reports nocturia Musculoskeletal: Musculoskeletal: Reports arthralgias (Left Knee ), Reports joint swelling (Left Knee ) and Reports limited range of motion (ROM limited due to recent surgical intervention LEFT Knee ) Neurologic: Denies headache(s) Endocrine: Endocrine: Denies palpitations Exam Const: General: comfortable and no acute distress Resp: Effort & Inspection: normal respiratory effort GI: GI Palp: Yes Soft to palpation, No Tenderness to palpation present (GI) and No Guarding due to palpation present (GI) Skin: Wounds: wounds noted (see extremity assessment ) Neuro: Cognition (Neuro): normal cognition Other: NV intact aside from block. Moves toes. Sensation intact to light touch. +ankle dorsiflexion/plantarflexion. Extrem: Left lower extremity: normal to inspection, normal capillary refill, knee Details: tenderness (diffuse ) Location: of the patella, swelling (moderate consistent to recent surgery ), abnormal ROM (limited due to recent surgery ) Details: pain with active ROM and pain with passive ROM and ecchymosis (as expected with recent surgery. NO hematoma. ), lower leg (Negative Amarjit's Sign ), ankle (+ankle dorsiflexion/plantarflexion ) Details: normal to inspection, no edema and normal ROM; no tenderness and no swelling and foot Details: normal capillary refill, toes with normal ROM, vascular exam Details: dorsalis pedis pulse present and motor-sensory exam light-touch normal; no tenderness Other: Incision left TKA dressing c/d/i. No hematoma. No signs of infection. No wound dehiscence. Psych: Mental Status: mental status grossly normal Objective Data Vital Signs Vital Signs: Vital Signs - 24 hr 04/29/22 10:21 04/29/22 10:35 04/29/22 10:50 Temperature 36.9 C Pulse Rate 84 81 82 Respiratory Rate 13 11 L 13 Blood Pressure 129/69 123/72 145/81 H Pulse Oximetry 98 98 97 Oxygen Delivery Simple Face Mask Simple Face Mask Room Air Oxygen Flow Rate 8 8 04/29/22 11:05 04/29/22 11:20 04/29/22 11:35 Temperature Pulse Rate 84 81 76 Respiratory Rate 13 9 L 9 L Blood Pressure 147/79 H 140/81 141/80 H Pulse Oximetry 98 99 99 Oxygen Delivery Room Air Room Air Room Air Oxygen Flow Rate 04/29/22 12:38 04/29/22 13:09 04/29/22 12:00 Temperature 36.8 C Pulse Rate 75 Respiratory Rate 12 Blood Pressure 144/77 H Pulse Oximetry 91 Oxygen Delivery Room Air Room Air Oxygen Flow Rate 04/29/22 12:15 04/29/22 12:45 04/29/22 13:45
[2022-04-30 10:12] VITALS: BP 130/71; PULSE 92; RESP 14; TEMP 36.9; O2SAT 98
[2022-04-30 10:57] VITALS: O2SAT 97
--- NOTE | 2022-04-30 12:49 | PM.DS ---
DS: Admitting Diagnosis Discharge Date 04/30/22 Admitting Diagnosis Left Knee DJD DS: Discharge Diagnosis Discharge Diagnosis (1) S/P total knee replacement: Qualifiers: Laterality: left Qualified Code(s): Z96.652 - Presence of left artificial knee joint Code(s): Z96.659 - Presence of unspecified artificial knee joint Status: Acute Assessment and Plan: POD #1 : Left TKA Continue PT/OT. WBAT. Walker. HIGH FALL RISK. Continue pain control. Ice Knee. Protect skin. DVT prophylaxis with Aspirin. SCDs. Incentive Spirometry Use reviewed. Monitor Dressing. Change prior to discharge. Bowel Regimen. Dispo: Home with home health pending progress with PT/OT DS: Summary Hospital Course Reason for hospitalization: Left TKA Hospital Course: 71 year old male admitted s/p left TKA for postoperative medical management, pain control and mobilization with PT/OT. Patient progressed very well on POD #1. His pain was well controlled and he was cleared by PT/OT to be safe to be discharge home with home health. Discharge instructions reviewed. Patient will follow up in the outpatient orthopedic clinic in approximately 3 weeks. Status at Discharge Functional status at discharge: uses cane/walker Overall status at discharge: patient is progressing back to baseline Time Spent with Patient Time attestation: Total time spent providing and/or coordinating discharge services: Exam Const: General: comfortable and no acute distress Resp: Effort & Inspection: normal respiratory effort Skin: Wounds: wounds noted (see extremity assessment ) Neuro: Cognition (Neuro): normal cognition Other: NV intact aside from block. Moves toes. Sensation intact to light touch. +ankle dorsiflexion/plantarflexion. Extrem: Left lower extremity: normal to inspection, normal capillary refill, knee Details: tenderness (diffuse ) Location: of the patella, swelling (moderate consistent to recent surgery ), abnormal ROM (limited due to recent surgery ) Details: pain with active ROM and pain with passive ROM and ecchymosis (as expected with recent surgery. NO hematoma. ), lower leg (Negative Amarjit's Sign ), ankle (+ankle dorsiflexion/plantarflexion ) Details: normal to inspection, no edema and normal ROM; no tenderness and no swelling and foot Details: normal capillary refill, toes with normal ROM, vascular exam Details: dorsalis pedis pulse present and motor-sensory exam light-touch normal; no tenderness Other: Incision left TKA dressing c/d/i. No hematoma. No signs of infection. No wound dehiscence. Psych: Mental Status: mental status grossly normal DS: Data Data Completed and Pending Labs on day of discharge: Labs from last 24 hours 04/30/22 04/30/22 05:16 05:16 WBC 13.8 H RBC 3.95 L Hgb 10.9 L D Hct 35.2 L MCV 89.1 MCH 27.6 MCHC 31.0 L RDW 15.5 H Plt Count 194 MPV 10.8 H Immature Gran % (Auto) 0.5 Neut % (Auto) 79.3 H Lymph % (Auto) 9.2 L [place] % (Auto) 10.8 H Eos % (Auto) 0.0 Baso % (Auto) 0.2 Lymph # (Auto) 1.27 [place] # (Auto) 1.5 H Eos # (Auto) 0.0 Baso # (Auto) 0.0 Abs Immat Gran (auto) 0.07 H Absolute Neuts (auto) 11.0 H Absolute Nucleated RBC 0.0 Nucleated RBC % 0.0 Sodium 135 L Potassium 4.3 Chloride 104 Carbon Dioxide 29 Anion Gap 2 L BUN 19 Creatinine 0.90 Estim Creat Clear Calc 85 Estimated GFR > 60 Glucose 149 H Calcium 8.3 L Discharge Plan Discharge Patient Disposition: Home Health Service Discharge Instructions: Post Op Total Knee Replacement Instructions Dr. Durga Tucker [phone] Your dressing will be changed prior to your discharge. You will be sent home with one additional dressing to be changed on post op day 7 by the home health RN. Your stewart will be removed on the 14th day after surgery and steri-strips will be placed. Please practice good hand hygiene and do not touch your incision in order to p
== END 2022-04-30 13:35 | disposition home health service (06) ==
LOC: ANHSURGERY 06:05 → ANH2MED 12:00
PROVIDERS: PCP Family Medicine Adolescent Medicine; Visit Provider Orthopaedic Surgery
PROC: (CPT 27447; principal; 2022-04-29 07:30)
DX: M17.12 Unilateral primary osteoarthritis, left knee (principal); G89.18 Other acute postprocedural pain; G47.33 Obstructive sleep apnea (adult) (pediatric); K21.9 Gastro-esophageal reflux disease without esophagitis; I11.9 Hypertensive heart disease without heart failure; E78.1 Pure hyperglyceridemia; E11.9 Type 2 diabetes mellitus without complications; Z79.82 Long term (current) use of aspirin; Z87.891 Personal history of nicotine dependence; E66.9 Obesity, unspecified; Z68.38 Body mass index [BMI] 38.0-38.9, adult
CPT/HCPCS: 27447; 64447; 36415; 73560; 80048; 80307; 81003; 82040; 82948; 83036; 85025; 85610; 85730; 86850; 86900; 86901; 87081; 97110; 97116; 97161; 97165; 97530; 97535; A9270; C1713; C1776; J0171; J0690; J1100; J1170; J1885; J2250; J2270; J2405; J2704; J2795; J3010; J7030; J7120

== ENCOUNTER 2022-07-01 09:52 | Outpatient (CLI) | payer OTHER, SELFPAY ==
--- NOTE | 2022-07-01 10:41 | ECG_ITS ---
Measurements Intervals [place] Rate: 78 P: -7 [place]: 134 QRS: -5 QRSD: 113 T: 15 QT: 358 QTc: 408 Interpretive Statements SINUS RHYTHM BASELINE ARTIFACT CANNOT RULE OUT INFERIOR INFARCT, AGE INDETERMINATE ABNORMAL ECG COMPARED TO ECG 06/16/2021 14:07:51 Electronically Signed On 07-01-2022 12:56:15 CDT by Kemal Mccauley M.D.
[2022-07-01 11:15] LABS: Appearance Urine Clear (Clear); Bilirubin Urine Negative (Negative); Blood Urine Negative (Negative); Color Urine Yellow (Yellow); Glucose Urine UA Negative (Negative); Ketones Urine Negative (Negative); Leukocyte Esterase Ur Negative LEU/UL (Negative); Nitrate Urine Negative (Negative); Protein Urine Negative (Negative); Urobilinogen Urine 0.2 mg/dL (<2.0)
[2022-07-01 11:16] LABS: Basophils Percent Auto 0.4 % (0.2-1.2); Eosinophils Absolute Auto 0.3 K/mm3 (0-0.3); Eosinophils Percent Auto 4.1 % (0-4.4); Hematocrit 40.3 % (42.0-52.0); Hemoglobin 12.8 g/dL (14.0-18.0); Immature Granulocyte Absolute 0.04 K/mm3 (0.00-0.031); Immature Granulocyte Percent A 0.6 % (0-0.5); Lymphocytes Absolute Auto 1.58 K/mm3 (0.9-3.2); Lymphocytes Percent Auto 22.5 % (18.3-44.2); Mean Corpuscular HGB Conc 31.8 g/dl (32-36); Mean Corpuscular Hemoglobin 27.2 pg (26-34); Mean Corpuscular Volume 85.6 fl (80-100); Mean Platelet Volume 10.5 fl (7.4-10.4); Monocytes Absolute Auto 0.5 K/mm3 (0.1-0.6); Monocytes Percent Auto 7.4 % (2.6-8.5); Neutrophils Absolute Auto 4.6 K/mm3 (1.3-6.7); Platelet Count Result 173 k/mm3 (150-375); Red Blood Count 4.71 M/mm3 (4.6-6.20); Red Cell Distribution Width 15.9 % (11.5-14.5)
[2022-07-01 11:25] LABS: INR 1.1; Prothrombin Time 13.6 Seconds (11.1-14.7)
[2022-07-01 11:26] LABS: Urine Cotinine NEGATIVE
[2022-07-01 11:29] LABS: Add Urine Microscopic? NO
[2022-07-01 11:29] LABS: Albumin Level 3.8 g/dL (3.5-5.1); Anion Gap 9 mmol/L (8-16); Blood Urea Nitrogen 18 mg/dL (9-20); Calcium 9.4 mg/dL (8.4-10.2); Carbon Dioxide 28 mmol/L (22-30); Chloride 101 mmol/L (98-107); Estimated Glomerular Filt Rate > 60; Glucose 193 mg/dL (65-110); Potassium 3.8 mmol/L (3.4-5.0); Sodium 138 mmol/L (137-145)
[2022-07-01 13:04] LABS: Hemoglobin A1C 6.7 % (<5.7)
== END 2022-07-01 09:53 | disposition home or self-care (01) ==
PROVIDERS: PCP Family Medicine Adolescent Medicine; Visit Provider Orthopaedic Surgery
DX: Z01.818 Encounter for other preprocedural examination (principal); M17.10 Unilateral primary osteoarthritis, unspecified knee; I10 Essential (primary) hypertension; Z51.81 Encounter for therapeutic drug level monitoring; Z79.899 Other long term (current) drug therapy
CPT/HCPCS: 80048; 80307; 81003; 82040; 83036; 85025; 85610; 85730; 87081; 93005

== ENCOUNTER 2022-07-02 13:45 | Outpatient (RCR) | payer OTHER, SELFPAY ==
--- NOTE | 2022-06-08 13:11 | PTOPEVAL ---
PHYSICAL THERAPY EVALUATION AND PLAN OF CARE Thank you for referring Pierce Phillip to [facility].? The patient is scheduled to be seen for therapy? 1x/week for 3-4 weeks. Please review, sign, date and return this plan of care LUCY. I agree with and certify that the following plan of care is medically necessary. Referring Physician Date Attending Provider: Durga Tucker MD Referring Provider: Durga Tucker MD Diagnosis left TKA Onset 04/29/22 Subjective Information Pierce is here today 6 wks s/p Query Text:As Reported By Patient/ left TKA. He is ambulating Family with a straight cane. He has been continuing to do his HEP. States he has no pain. Lower Extremity Range of Motion Knee Range of Motion Left Knee Flexion Range of Motion - Active 106 Knee Extension Range of Motion - Active 0 Query Text: Lower Extremity Muscle Strength Testing Hip Strength Left Hip Flexion Strength 4+ Good + Hip Extension Strength 3 Fair Hip Abduction Strength 3- Fair - Knee Strength Left Knee Flexion Strength 4+ Good + Knee Extension Strength 4+ Good + Extremity Circumference Assessment Circumference Assessment Location Left Body Part Knee Site Descriptor (Trilla) suprapatellar Circumference (cm) 51 Noninvolved Side Circumference (cm) 46 Gait Assessment Gait Pattern Assessment Gait Pattern Trendelenburg Gait Gait Pattern Observed Trunk Lateral Lean - Left, Trunk Lateral Lean - Right PT Clinical Summary Pierce is a 71 yo male presenting to physical therapy 6 wks s/p left TKA. Due to surgical intervention, he continues to demonstrate less than functional knee flexion and demonstrates significant edema compared to the right side. He also demonstrates impaired gait pattern with significant Trendelenburg indicating poor motor activation and control of glutes and trunk. He will require skilled physical therapy to promote optimal strength and ROM and to provide edema management.
--- NOTE | 2022-07-02 16:56 | PCPTNOTE ---
PHYSICAL THERAPY DISCHARGE NOTE Attending Provider: Durga Tucker MD Patient:Pierce Phillip Date of :1950 Pierce participated in physical therapy following TKA. He demonstrates 0-121 knee ROM, 5/5 strength, and gait speed of 3.2ft/second. He will have his other knee replaced within the next month. Discharge from PT at this time. The goals have been met. Thank you for referring this patient to [facility]. Please review, sign, date and return this discharge summary LUCY. I have been updated about the patient's current status and I agree with discharge from the above service at this time. Referring Physician Date
== END 2022-07-03 10:50 | disposition home or self-care (01) ==
LOC: ANHPT 13:45
PROVIDERS: PCP Family Medicine Adolescent Medicine; Visit Provider Orthopaedic Surgery
DX: Z47.1 Aftercare following joint replacement surgery (principal); Z96.652 Presence of left artificial knee joint
CPT/HCPCS: 97110; 97112; 97161; 97530

== ENCOUNTER 2022-07-15 00:37 | Day surgery (SDC) | payer OTHER, SELFPAY ==
[2022-07-01 10:03] VITALS: BP 145/75; PULSE 88; RESP 16; TEMP 37.2; O2SAT 99; BMI 38.0
--- NOTE | 2022-07-01 10:22 | PC.NURSE ---
Report to the Outpatient Waiting Room, entrance under the green pavilion located off [facility], at time _0600_ on date _[id number]_. OR Time: _0730_. - You and your visitor will be asked a series of questions to screen for COVID 19 for your protection. - Only one visitor is allowed at this time. - The patient visitor is requested to leave or wait in car when not with patient. - A mask is required within the hospital. Patients may have clear liquids (water, carbonated beverages, clear teas, apple juice) until 3 hours prior to surgery with a maximum of 20 ounces. - No food from midnight until time of surgery Take the following medications with a SIP of water the morning of surgery: __None Medications to discontinue per physician ___All Vitamins and supplements Date to take last [id number]___[id number] Please no make-up, nail azeri, hairspray, perfume, deodorant, or body powder the day of surgery. No jewelry (including any body piercings) or valuables the day of surgery, leave them at home. Please take a shower or bath the night before, or the morning of, surgery with an antibacterial soap. Wear comfortable, loose fitting clothing. - Jewelry must be removed prior to entering the operating room. Rings and piercings that are not removed may be cut off. - The hospital will not accept responsibility for valuables. - Please leave all valuables, including medications, at home the day of surgery. If you are going home after surgery, a licensed lifter/driver must drive you home. - NO public transportation without another adult. - We recommend that an adult stay with you for 24 hours following discharge. - We also recommend that you do not drive, make important decision, drink alcoholic beverages, or take any drugs that were not prescribed by your health care provider for at least 24 hours after your discharge time. Follow any additional instructions given to you from your surgeon. If you or anyone in your household have experienced Covid symptoms in the past week, please notify your surgeon or the nurse liaison at the phone number below for possible testing. Telephone instructions given to _Patient____and asked if any additional questions and then verbalized understanding. Patient advised to call surgeon office or pre surgery nurse liaison [phone] if any additional questions.
[2022-07-15] VITALS (17 sets, daily range): BP systolic 127–163; BP diastolic 63–80; PULSE 68–87; RESP 10–17; TEMP 36.2–36.5; O2SAT 95–100
--- NOTE | ~2022-07-15 | XR_ITS ---
EXAMINATION: XR knee RT 2V DATE: 07/15/2022 10:56 CDT INDICATION: Right total knee arthroplasty TECHNIQUE: 2 views right knee FINDINGS: There is a right total knee arthroplasty in expected position. Subcutaneous gas with fluid and air in the joint and overlying skin stewart are consistent with recent surgery. No evidence of p eriprosthetic fracture. IMPRESSION: 1. Recent right total knee arthroplasty. Reviewed, dictated and finalized at location B.
--- NOTE | 2022-07-15 06:43 | WPDANESEPPF ---
Anes - Initial Pre Proc Eval Procedure: Operation Date: 07/15/22 07:30 Proposed Procedures p Right Total Knee Arthroplasty - Durga Tcuker MD Date/Time: 07/15/22 06:43 Surgeon: Durga Tucker MD Pre Op Diagnosis: right knee DJD Patient Data Age: 72 Gender: M Height: 1.78 m Weight: 119.7 kg Last Vital Signs Temp 37.2 C 07/01/22 10:03 Pulse 88 07/01/22 10:03 Resp 16 07/01/22 10:03 BP 145/75 H 07/01/22 10:03 Pulse Ox 99 07/01/22 10:03 O2 Del Method Room Air 07/01/22 10:03 Allergies Allergy/AdvReac Type Severity Reaction Status Date / Time No Known Allergies Allergy Unknown Verified 07/15/22 06:38 Home Medications Medication Instructions Recorded Confirmed Type meloxicam 15 mg tablet 15 mg PO PRN PRN ARTHRITIS 09/16/20 07/01/22 History mometasone 50 mcg/actuation nasal 50 mcg intranasal QAM 09/16/20 07/01/22 History spray azelastine 205.5 mcg (0.15 %) 2 spray intranasal PRN PRN 09/30/21 07/01/22 History nasal spray Congestion calcium 500 mg tablet 500 mg PO DAILY 09/30/21 07/01/22 History cholecalciferol (vitamin D3) 50 50 mcg PO DAILY 09/30/21 07/01/22 History mcg (2,000 unit) tablet cyanocobalamin (vitamin B-12) 1,000 mcg PO DAILY 09/30/21 07/01/22 History 1,000 mcg tablet (Vitamin B-12) latanoprost 0.005 % eye drops 1 drp EACH EYE HS 09/30/21 07/01/22 History multivitamin 1 tablet PO DAILY 09/30/21 07/01/22 History omega-3 fatty acids-vitamin E 1 cap PO DAILY 09/30/21 07/01/22 History 1,000 mg capsule vitamin E 1,000 unit tablet 1 tablet PO DAILY 09/30/21 07/01/22 History famotidine 40 mg tablet 40 mg PO HS #90 tabs 12/25/21 07/01/22 Rx testosterone cypionate 200 mg/mL 200 mg IM .once every 3 weeks #4 mL 01/05/22 07/01/22 Rx intramuscular oil (Depo-Testosterone) aspirin 81 mg tablet,delayed 81 mg PO DAILY 01/19/22 07/01/22 History release (Adult Aspirin Regimen) lutein 6 mg capsule 6 mg PO DAILY 01/19/22 07/01/22 History simethicone 125 mg capsule (Gas 125 mg PO DAILY PRN BLOATING 01/19/22 07/01/22 History Relief (simethicone)) losartan 100 1 tablet PO QAM #100 tabs 03/26/22 07/01/22 Rx mg-hydrochlorothiazide 25 mg tablet coQ10 (ubiquinol) 100 mg capsule 100 mg PO DAILY 04/06/22 07/01/22 History sildenafil 100 mg tablet 100 mg PO PRN ERECTIAL DYSFUNCTION 04/06/22 07/01/22 History glucosamine sulf dipot 2 cap PO DAILY 04/20/22 07/01/22 History chlr,msm,chond 550 mg-C 30 mg-mari 1 mg capsule (Glucosamine Chondroitin) pilocarpine HCl 5 mg tablet 10 mg PO TID 04/20/22 07/01/22 History oxycodone-acetaminophen 5 mg-325 1 - 2 tablet PO Q6H PRN pain #56 04/30/22 07/01/22 Rx mg tablet tabs sennosides 8.6 mg-docusate sodium 1 tablet PO BID 30 days #60 tabs 04/30/22 07/01/22 Rx 50 mg tablet (Senokot-S) pantoprazole 40 mg tablet,delayed 40 mg PO DAILY #90 tabs 05/05/22 07/01/22 Rx release atorvastatin 20 mg tablet 20 mg PO DAILY #90 tabs 05/22/22 07/01/22 Rx peg 400-propylene glycol (PF) 0.4 1 drp EACH EYE DAILY 07/01/22 07/01/22 History %-0.3 % eye drops in a dropperette (Systane (PF)) chlorhexidine gluconate 4 % 1 applic topical ONCE #237 mL 07/08/22 Rx topical liquid (Hibiclens) Patient hx anesthesia problems: none Family hx anesthesia problems: none Results Review: All pre-operative results and documents have been reviewed as part of the pre-operative evaluation. COUNTS INCLUDE 234 BEDS AT THE [facility] Past Medical History Medical History Bilateral primary osteoarthritis of knee Carpal tunnel syndrome on both sides Chronic GERD Degenerative joint disease of knee Fungal infection History of colon polyps HTN (hypertension) Knee cartilage, torn, right Left hip pain Male erectile dysfunction, unspecified Normal colonoscopy 09/17 Repeat 09/27 Obesity Occult blood in stools ANNIE on CPAP Osteoarthritis of left hip 12/20 mild Other ill-defined heart diseases Diastolic dysfunction
[2022-07-15] MEDS: ACETAMINOPHEN 500 MG TABLET 1000 MG PO (06:52)
[2022-07-15] MEDS: LACTATED RINGERS 1,000 ML 30 ML IV CONT ×2 (07:00→10:42)
--- NOTE | 2022-07-15 07:05 | WPDHPUPDATE1 ---
History and Physical Update Update Date/Time: 07/15/22 07:05 History and Physical has been reviewed, including an updated exam of the patient. There are NO changes in the patient's condition. Risks, benefits, and alternatives have been discussed and questions answered. Patient agrees to proceed with procedure.
[2022-07-15] MEDS: TRANEXAMIC ACID 1,000MG/ISO100 1,000 MG/100 ML BAG 200 MG IVPB (07:06)
--- NOTE | 2022-07-15 07:16 | WPDANESPNB ---
Anes - Peripheral Nerve Block Date/Time: 07/15/22 07:16 I have discussed with the patient/family/POA the placement of a peripheral nerve block for post-operative pain management, including associated risks, benefits, complications, and side effects. Alternative methods of post-operative analgesia were detailed. Questions were solicited and answers provided to the satisfaction of the patient/family/POA. Time-Out: A pre-procedural Time-Out was completed immediately before starting the procedure and confirmed: Patient Identification, Site, Procedure, Patient Position and the Availability of Requisite Equipment. Clinical Indications: Acute post-operative pain management requested by the operative surgeon. Nerve Block Insertion Note Anes-nerve block: femoral right Patient position: supine Skin prep: chlorhexidine Needle: 22 gauge, stimulating, insulated echogenic needle. Needle length: 50 mm Technique: nerve stimulation lost at (mA) (0.4) Observations: tolerated well Complications: none Procedure start time:: 710 Procedure end time:: 715
[2022-07-15] MEDS: ceFAZolin 2 GM/D5W 50 ML 2 GM/50 ML BAG IVPB ×3 (07:27→23:32)
[2022-07-15] MEDS: ceFAZolin SODIUM 1 GM VIAL (07:27)
[2022-07-15] MEDS: GENTAMICIN BONE CEMENT REFOBACIN 1 EACH TOPICAL (08:55)
[2022-07-15] MEDS: TRANEXAMIC ACID 1,000 MG/10 ML AMPUL 1000 MG IV PUSH (09:30)
[2022-07-15] MEDS: KETOROLAC 30 MG/ML VIAL (*BKC) IV PUSH (10:05)
[2022-07-15 11:04] LABS: Glucose Point of Care 184 mg/dl (65-105)
--- NOTE | 2022-07-15 11:04 | SUR.PHASEI ---
1046 xrays of right knee done.
--- NOTE | 2022-07-15 11:13 | W.PM.PROC2 ---
Procedure Note - Detailed Date of Procedure 07/15/22 Pre-op Diagnosis right knee DJD Post-op Diagnosis Same Procedure Performed R TKA Surgeon Durga Tucker MD Anesthesia General Description of Procedure THE RIGHT KNEE WAS PREPPED AND DRAPED IN THE STERILE FASHION. A MIDLINE SKIN INCISION WAS MADE. A MEDIAL PARAPATELLAR ARTHROTOMY WAS MADE. THE PATELLA WAS EVERTED. THERE WAS TRICOMPARTMENT DJD. THERE WAS MINIMAL PATELLA DJD. AN INTRAMEDULLARY ANTONIO WAS PLACED IN THE FEMUR. A DISTAL FEMORAL CUT WAS MADE IN 5 DEGREES OF VALGUS REMOVING APPROXIMATELY 9 MM OF BONE FROM THE DISTAL FEMUR. THE FEMUR WAS SIZED TO 67.5. A 67.5 FEMORAL CUTTING BLOCK WAS PLACED IN 3 DEGREES OF EXTERNAL ROTATION AND IN ALIGNMENT WITH GABI'S LINE AND THE TRANSEPICONDYLAR AXIS. ANTERIOR POSTERIOR AND CHAMFER CUTS WERE MADE. THE CUTS WERE EXCELLENT. NEXT AN INTRAMEDULLARY CUTTING GUIDE WAS PLACED IN THE TIBIA. A TRANS TIBIAL CUT WAS MADE ALONG THE LONG AXIS OF THE TIBIA. APPROXIMATELY 10 MM OF BONE WAS REMOVED FROM THE HIGH SIDE OF THE TIBIA. THE TIBIA WAS THEN PLANED TO A SMOOTH SURFACE. POSTERIOR FEMORAL OSTEOPHYTES WERE REMOVED FROM THE FEMORAL CONDYLES. A 75 TIBIAL TRIAL WAS PLACED IN ALIGNMENT WITH THE 1/3 MEDIAL ASPECT OF THE TIBIAL TUBERCLE. THEN A 67.5 FEMORAL TRIAL COMPONENT WAS PLACED. BOTH HAD EXCELLENT FITS. EVENTUALLY A 12 MM POLYETHYLENE TRIAL COMPONENT WAS PLACED. THE KNEE WAS TAKEN THROUGH A RANGE OF MOTION. THE KNEE CAME OUT TO FULL EXTENSION. THERE WAS NO ABNORMAL TILT TO THE PATELLA. THERE WAS GOOD A/P AND VARUS/VALGUS STABILITY. THERE WAS NO EXCESSIVE ROLL BACK WITH FLEXION. THE TRIAL COMPONENTS WERE REMOVED. THEN A 67.5 FEMORAL COMPONENT AND 75 TIBIAL COMPONENT WITH A 12 POLYETHYLENE COMPONENT WERE CEMENTED INTO PLACE. ONCE THE CEMENT WAS HARD THE KNEE WAS TAKEN THROUGH A ROM AGAIN AND FOUND TO BE STABLE WITH NO PATELLA TILT NO EXCESSIVE ROLL BACK WITH FLEXION AND GOOD STABILITY WITH COMPLETE AND FULL EXTENSION. THE KNEE WAS IRRIGATED WITH STERILE BETADINE AND WATER FOR ABOUT 3 MINUTES. THE BLEEDERS WERE CAUTERIZED. THE ARTHROTOMY WAS REPAIRED WITH NUMBER 1 VICRYL. THE SUB CUTANEOUS LAYER WITH 2-0 VICRYL AND THE SKIN WITH DEE DEE. THE WOUND WAS WASHED AND A STERILE DRESSING WAS APPLIED. PATIENT WAS EXTUBATED. Estimated Blood Loss -200.0 Pathology None sent Complications No immediate complications Condition Stable Disposition PACU
--- NOTE | 2022-07-15 12:15 | SUR.PHASEI ---
1200pt stable and available to transfer to inpt room, will hold pt in op recovery,assigned room unavailable. family aware and able to visit,pt placed hearing aides in.
[2022-07-15] MEDS: ONDANSETRON INJ 4 MG/2 ML VIAL IV PUSH (13:20)
[2022-07-15] MEDS: SODIUM CHLORIDE 0.9% IV 1,000 ML 125 ML IV CONT (14:59)
[2022-07-15 16:05] LABS: Estimated CRCL calculation 87 ml/min; Estimated Glomerular Filt Rate > 60
[2022-07-15] MEDS: SENNA/DOCUSATE SODIUM TABLET 2 TAB PO (16:23)
[2022-07-15] MEDS: CELECOXIB 200 MG CAPSULE PO (18:08)
[2022-07-15] MEDS: LATANOPROST 0.005% OP SOLN 2.5 ML BTL 1 DROP EACH EYE (21:33)
[2022-07-15] MEDS: FAMOTIDINE 20 MG TABLET 40 MG PO (21:34)
[2022-07-15] MEDS: ASPIRIN 325 MG ENTERIC TABLET PO (21:34)
[2022-07-15] MEDS: oxyCODONE/ACETAMINOPHEN (*CRX) 5-325 MG TABLET 1 TABLET PO (21:35)
[2022-07-15] MEDS: WATER FOR IRRIGATION, STERILE 1,000 ML BOTTLE 1000 ML (22:00)
[2022-07-16 01:25] VITALS: BP 134/73; PULSE 90; RESP 18; TEMP 36.3; O2SAT 97
[2022-07-16 04:33] VITALS: BP 127/76; PULSE 81; RESP 14; TEMP 36.5; O2SAT 97
[2022-07-16 05:45] LABS: Basophils Percent Auto 0.2 % (0.2-1.2); Eosinophils Percent Auto 0.1 % (0-4.4); Hematocrit 34.5 % (42.0-52.0); Hemoglobin 10.9 g/dL (14.0-18.0); Immature Granulocyte Absolute 0.04 K/mm3 (0.00-0.031); Immature Granulocyte Percent A 0.3 % (0-0.5); Lymphocytes Absolute Auto 1.32 K/mm3 (0.9-3.2); Lymphocytes Percent Auto 10.7 % (18.3-44.2); Mean Corpuscular HGB Conc 31.6 g/dl (32-36); Mean Corpuscular Hemoglobin 27.3 pg (26-34); Mean Corpuscular Volume 86.3 fl (80-100); Mean Platelet Volume 10.4 fl (7.4-10.4); Monocytes Absolute Auto 1.3 K/mm3 (0.1-0.6); Monocytes Percent Auto 10.5 % (2.6-8.5); Neutrophils Absolute Auto 9.7 K/mm3 (1.3-6.7); Neutrophils Percent Auto 78.2 % (45.5-73.1); Platelet Count Result 158 k/mm3 (150-375); Red Cell Distribution Width 15.9 % (11.5-14.5); White Blood Count 12.4 K/mm3 (4.5-10.0)
[2022-07-16 05:57] LABS: Anion Gap 8 mmol/L (8-16); Blood Urea Nitrogen 23 mg/dL (9-20); Calcium 8.3 mg/dL (8.4-10.2); Carbon Dioxide 27 mmol/L (22-30); Chloride 101 mmol/L (98-107); Estimated CRCL calculation 97 ml/min; Estimated Glomerular Filt Rate > 60; Glucose 169 mg/dL (65-110); Potassium 4.2 mmol/L (3.4-5.0); Sodium 136 mmol/L (137-145)
[2022-07-16] MEDS: ceFAZolin 2 GM/D5W 50 ML 2 GM/50 ML BAG IVPB (06:15)
[2022-07-16] MEDS: oxyCODONE/ACETAMINOPHEN (*CRX) 5-325 MG TABLET 1 TABLET PO (06:17)
[2022-07-16] MEDS: FLUTICASONE PROPIONATE 0.05% NA SPR 16 GM BTL (*BKC) 2 SPRAY NASAL (08:23)
[2022-07-16] MEDS: polyethylene glycoL 3350 17 GM POWD.PACK PO (08:24)
[2022-07-16] MEDS: SIMETHICONE 125 MG CHEW TAB PO (08:24)
[2022-07-16] MEDS: CELECOXIB 200 MG CAPSULE PO (08:24)
[2022-07-16] MEDS: LOSARTAN POTASSIUM 100 MG TABLET PO (08:25)
[2022-07-16] MEDS: ATORVASTATIN 20 MG TABLET PO (08:25)
[2022-07-16] MEDS: CYANOCOBALAMIN 1,000 MCG TABLET 1000 MCG PO (08:25)
[2022-07-16] MEDS: MULTIVITAMINS THERAPEUTIC TAB (*BKC) 1 TABLET PO (08:26)
[2022-07-16] MEDS: ASPIRIN 325 MG ENTERIC TABLET PO (08:26)
[2022-07-16] MEDS: VITAMIN E 1,000 UNIT CAPSULE 1000 UNIT PO (08:27)
[2022-07-16] MEDS: CALCIUM CARBONATE (OSCAL) 500 MG TABLET PO (08:27)
[2022-07-16] MEDS: hydroCHLOROthiazide 25 MG TABLET PO (08:27)
[2022-07-16] MEDS: ARTIFICIAL TEARS OPHTH SOLN 15 ML BOTTLE 1 DROP EACH EYE (08:30)
--- NOTE | 2022-07-16 09:15 | PCOTNOTE ---
Attempted to see patient twice this am, however first attempt patient was with nursing and received breakfast tray. Second attempt, patient was with physical therapy.
[2022-07-16 10:30] VITALS: BP 131/65; PULSE 76; RESP 16; TEMP 36.1; O2SAT 100
--- NOTE | 2022-07-16 12:21 | WPDANESPN ---
Anes - Prog Note Post-Op Date/Time: 07/16/22 12:21 Vital Signs: Last Vital Signs Temp 36.1 C L 07/16/22 10:30 Pulse 76 07/16/22 10:30 Resp 16 07/16/22 10:30 BP 131/65 07/16/22 10:30 Pulse Ox 100 07/16/22 10:30 O2 Del Method Room Air 07/16/22 08:25 O2 Flow Rate 10 07/15/22 11:10 Pain Score (VAS): 0 I/O: Intake & Output 07/15/22 07/16/22 07/16/22 23:59 07:59 15:59 Intake Total 350 2050 240 Output Total 300 1150 Balance 50 900 240 Laboratory Tests 07/16/22 05:35 07/16/22 05:35 07/15/22 07/16/22 07/16/22 15:46 05:35 05:35 WBC 12.4 H RBC 4.00 L Hgb 10.9 L Hct 34.5 L MCV 86.3 MCH 27.3 MCHC 31.6 L RDW 15.9 H Plt Count 158 MPV 10.4 Immature Gran % (Auto) 0.3 Neut % (Auto) 78.2 H Lymph % (Auto) 10.7 L [place] % (Auto) 10.5 H Eos % (Auto) 0.1 Baso % (Auto) 0.2 Lymph # (Auto) 1.32 [place] # (Auto) 1.3 H Eos # (Auto) 0.0 Baso # (Auto) 0.0 Abs Immat Gran (auto) 0.04 H Absolute Neuts (auto) 9.7 H Absolute Nucleated RBC 0.0 Nucleated RBC % 0.0 Sodium 136 L Potassium 4.2 Chloride 101 Carbon Dioxide 27 Anion Gap 8 BUN 23 H Creatinine 0.90 0.80 Estim Creat Clear Calc 87 97 Estimated GFR > 60 > 60 Glucose 169 H Calcium 8.3 L Patient Feedback: Patient satisfied with anesthetic care.
[2022-07-16 14:20] VITALS: BP 135/76; PULSE 80; RESP 16; TEMP 36.6; O2SAT 97
--- NOTE | 2022-07-16 16:59 | PM.PNORT ---
Progress Note: A&P Assessment and Plan (1) History of arthroplasty of right knee: Code(s): Z96.651 - Presence of right artificial knee joint Status: Acute Assessment and Plan: POD 1 DOING WELL. OK TO DC HOME. F/U IN 3 WEEKS Plan POD 1 DOING WELL. OK TO DC HOME. F/U IN 3 WEEKS. Subjective Subjective Date/Time Seen: 07/16/22 16:59 POD 1 DOING WELL. GOOD PROGRESS WITH PT. NO CALF PAIN Exam Extrem: Other: VSS AFEBRILE DRESSING DRY NV INTACT NEG HOMANS SIGN CALF SOFT NON TENDER Objective Data Vital Signs Vital Signs: Vital Signs - 24 hr 07/15/22 19:27 07/15/22 23:00 07/16/22 01:25 Temperature 36.4 C 36.3 C L Pulse Rate 84 90 Respiratory Rate 16 18 Blood Pressure 145/80 H 134/73 Pulse Oximetry 97 97 Oxygen Delivery CPAP 07/16/22 04:33 07/16/22 10:30 07/16/22 08:25 Temperature 36.5 C 36.1 C L Pulse Rate 81 76 Respiratory Rate 14 16 Blood Pressure 127/76 131/65 Pulse Oximetry 97 100 Oxygen Delivery Room Air 07/16/22 14:20 Temperature 36.6 C Pulse Rate 80 Respiratory Rate 16 Blood Pressure 135/76 Pulse Oximetry 97 Oxygen Delivery Intake/Output Intake/Output: Intake & Output 07/13/22 07/14/22 07/15/22 07/16/22 23:59 23:59 23:59 23:59 Intake Total 550 2530 Output Total 675 1150 Balance -125 1380 Meds/Results Medications: Active Medications Generic Name Dose Route Start Last Admin Trade Name Freq PRN Reason Stop Dose Admin Acetaminophen 1,000 mg 07/15/22 13:42 Acetaminophen 500 Mg Tablet PO Q6H PRN Pain Rated 1-3 Artificial Tears 1 drop 07/16/22 09:00 07/16/22 08:30 Artificial Tears Ophth Soln 15 Ml Bottle EACH EYE 08/15/22 08:59 1 drop DAILY MAGALIS Administration Aspirin 325 mg 07/15/22 21:00 07/16/22 08:26 Aspirin 325 Mg Enteric Tablet PO 325 mg Q12HR MAGALIS Administration Atorvastatin Calcium 20 mg 07/16/22 09:00 07/16/22 08:25 Atorvastatin 20 Mg Tablet PO 20 mg DAILY MAGALIS Administration Calcium Carbonate 500 mg 07/16/22 09:00 07/16/22 08:27 Calcium Carbonate (Oscal) 500 Mg Tablet PO 500 mg QAM MAGALIS Administration Celecoxib 200 mg 07/15/22 17:00 07/16/22 08:24 Celecoxib 200 Mg Capsule PO 200 mg BIDWM MAGALIS Administration Cyanocobalamin 1,000 mcg 07/16/22 09:00 07/16/22 08:25 Cyanocobalamin 1,000 Mcg Tablet PO 1,000 mcg DAILY MAGALIS Administration Diazepam 5 mg 07/15/22 13:42 Diazepam (*Crx) 5 Mg Tablet PO Q8H PRN Spasms Diphenhydramine HCl 25 mg 07/15/22 13:42 Diphenhydramine Hcl Inj 50 Mg/Ml Vial IV PUSH Q6H PRN Itching Famotidine 40 mg 07/15/22 21:00 07/15/22 21:34 Famotidine 20 Mg Tablet PO 40 mg HS MAGALIS Administration Fluticasone Propionate 2 spray 07/16/22 09:00 07/16/22 08:23 Fluticasone Propionate 0.05% Na Spr 16 Gm Btl (*Bkc) NASAL 2 spray QAM MAGALIS Administration Hydrochlorothiazide 25 mg 07/16/22 09:00 07/16/22 08:27 Hydrochlorothiazide 25 Mg Tablet PO 25 mg QAM MAGALIS Administration Latanoprost 1 drop 07/15/22 21:00 07/15/22 21:33 Latanoprost 0.005% Op Soln 2.5 Ml Btl EACH EYE 1 drop HS MAGALIS Administration Losartan Potassium 100 mg 07/16/22 09:00 07/16/22 08:25 Losartan Potassium 100 Mg Tablet PO 100 mg DAILY MAGALIS Administration Meloxicam 15 mg 07/15/22 13:57 Meloxicam 7.5 Mg Tablet PO DAILY PRN ARTHRITIS PAIN Multivitamins Therapeutic 1 tablet 07/16/22 09:00 07/16/22 08:26 Multivitamins Therapeutic Tab (*Bkc) PO 1 tablet DAILY MAGALIS Administration Naloxone HCl 0.1 mg 07/15/22 13:42 Naloxone Hcl 0.4 Mg/Ml Vial IV PUSH Q2M PRN Opiate Reversal Non-Formulary Medication 10 mg 07/15/22 13:42 07/15/22 18:02 [place] Hcl PO 08/14/22 13:41 Not Given TID MAGALIS Non-Formulary Medication 100 mg 07/15/22 13:42 Sildenafil PO 08/14/22 13:41 PRN [facility] Ondansetron HCl 4 mg 07/15/22 13:42 Ondansetron Inj 4 M
--- NOTE | 2022-07-16 17:01 | PM.DS ---
DS: Admitting Diagnosis Discharge Date 07/16/22 Admitting Diagnosis RIGHT KNEE DJD DS: Discharge Diagnosis Discharge Diagnosis (1) History of arthroplasty of right knee: Code(s): Z96.651 - Presence of right artificial knee joint Status: Acute DS: Summary Hospital Course Reason for hospitalization: R TKA Hospital Course: PATIENT WAS ADMITTED S/P RIGHT TOTAL KNEE ARTHROPLASTY FOR POSTOPERATIVE MEDICAL MANAGEMENT, PAIN CONTROL AND MOBILIZATION WITH PHYSICAL AND OCCUPATIONAL THERAPY. THE PATIENT PROGRESSED WELL WITH PT/OT. LABS AND VITALS REMAINED STABLE AND PAIN WELL CONTROLLED. THE PATIENT HAS BEEN CLEARED TO BE DISCHARGED HOME. FOLLOW UP APPOINTMENT SCHEDULED. DISCHARGE INSTRUCTIONS DISCUSSED AT LENGTH WITH THE PATIENT. MEDICATIONS REVIEWED. Status at Discharge Cognitive/behavioral status at discharge: STABLE Functional status at discharge: uses cane/walker Time Spent with Patient Time attestation: Total time spent providing and/or coordinating discharge services: DS: Data Data Completed and Pending Labs on day of discharge: Labs from last 24 hours 07/16/22 07/16/22 05:35 05:35 WBC 12.4 H RBC 4.00 L Hgb 10.9 L Hct 34.5 L MCV 86.3 MCH 27.3 MCHC 31.6 L RDW 15.9 H Plt Count 158 MPV 10.4 Immature Gran % (Auto) 0.3 Neut % (Auto) 78.2 H Lymph % (Auto) 10.7 L [place] % (Auto) 10.5 H Eos % (Auto) 0.1 Baso % (Auto) 0.2 Lymph # (Auto) 1.32 [place] # (Auto) 1.3 H Eos # (Auto) 0.0 Baso # (Auto) 0.0 Abs Immat Gran (auto) 0.04 H Absolute Neuts (auto) 9.7 H Absolute Nucleated RBC 0.0 Nucleated RBC % 0.0 Sodium 136 L Potassium 4.2 Chloride 101 Carbon Dioxide 27 Anion Gap 8 BUN 23 H Creatinine 0.80 Estim Creat Clear Calc 97 Estimated GFR > 60 Glucose 169 H Calcium 8.3 L Procedures/Treatments: R TKA Discharge Plan Discharge Patient Disposition: Home Health Service Discharge Instructions: per care coordination, [facility] arranged for RN, PT/OT evaluations and treatment. [facility] will contact you to arrange first visit. [facility] can be reached at [phone]. VALENTINE TUCKER M.D. [facility] [address] [place] [address] POST OPERATIVE DISCHARGE INSTRUCTIONS FOLLOWING TOTAL KNEE REPLACEMENT SURGERY ? Your dressing will be changed prior to your discharge. You will be sent home with one additional dressing to be changed on post op day 7 by the home health RN. Your stewart will be removed on the 14th day after surgery and steri-strips will be placed. Please practice good hand hygiene and do not touch your incision in order to prevent infection. ? You may shower with your dressing but do not submerge in a bath tub. ? Do not drive or operate machinery until you are released by Dr. Tucker. ? Do not walk without a walker for any reason until you are released by Dr. Tucker. ? Continue to use your ice machine. Please use a towel or pillow case to protect your skin before applying your ice machine. ? Do NOT place a pillow under your knee. You may use a pillow from the calf down if needed. This will prevent a flexion contracture postoperatively. ? You may begin use of your CPM machine at home if you have been given one pre-operatively. DO NOT USE WHILE YOU ARE SLEEPING. ? Your first post op appointment was sent to you via mail preoperatively. If you have any questions or are unable to make your appointment, please contact our office for scheduling questions. ? Your medications have been sent to your pharmacy. You have been sent home with pain medication. We have also sent you with a stool softener as narcotics can cause constipation. Please keep this in mind during your postoperative recovery. If you are not experiencing regular bowel movements, please contact our office for further instruction. ? Please contact our off
== END 2022-07-16 17:45 | disposition home health service (06) ==
LOC: ANHSURGERY 06:08 → ANH2MED 14:15
PROVIDERS: PCP Family Medicine Adolescent Medicine; Visit Provider Orthopaedic Surgery
PROC: (CPT 27447; principal; 2022-07-15 07:30)
DX: M17.11 Unilateral primary osteoarthritis, right knee (principal); G89.18 Other acute postprocedural pain; G47.33 Obstructive sleep apnea (adult) (pediatric); I11.0 Hypertensive heart disease with heart failure; E11.9 Type 2 diabetes mellitus without complications; E78.1 Pure hyperglyceridemia; E66.9 Obesity, unspecified; Z68.35 Body mass index [BMI] 35.0-35.9, adult; Z79.82 Long term (current) use of aspirin; Z79.890 Hormone replacement therapy; Z79.891 Long term (current) use of opiate analgesic
CPT/HCPCS: 27447; 64447; 36415; 73560; 80048; 80307; 81003; 82040; 82565; 82948; 83036; 85025; 85610; 85730; 86850; 86900; 86901; 87081; 93005; 97110; 97116; 97161; 97165; 97530; 97535; A9270; C1713; C1776; J0171; J0690; J1170; J1885; J2250; J2270; J2405; J2795; J3010; J7030; J7120

== ENCOUNTER 2022-09-02 12:30 | Outpatient (RCR) | payer OTHER, SELFPAY ==
--- NOTE | 2022-08-10 11:30 | PTOPEVAL1 ---
Evaluation Information Assessment Status Evaluation Diagnosis s/p R TKR Onset 07-15-22 Subjective Information Pierce reports: just completed [facility] therapy; using cane when going out of home and in home not using anything--sometimes hold onto furniture or wall; doing exercises lying down and sitting from home therapy; still have CPM, but they are going to pick it up soon; Reported Pain Level Pain Score Self Report range of 0-4/10 Additional Pain Score Comments reports stand/walk tolerance 20 min; with sleeping pain awakening him 2x/wk; have not been using ice lately; reinforced use of ice PRN Assessment PT Clinical Summary Pierce is s/p R TKR. He recently had his L TKR on 04-29-22. He has completed [facility] PT, is doing his HEP and increasing walking with the cane in community and no device in home. Knee pain is less, but awakens him from sleeping 2x/wk and standing tolerance is 20 minutes. With the evaluation, his R knee sitting active ROM is (-3') to 93'; 2 minute walking test distance is 450' and 5 reps sit/stand time is 24 seconds; Skilled PT treatment is indicated to increase R knee ROM and strength, modalities PRN for pain and edema control and education for home exercise progression and gait/balance retraining. Plan of Care Interventions Electrical Stimulation,Gait Training,Hot Pack/Cold Pack,Intermittent Compression,Manual Therapy, Neuro Re-education,Patient/Caregiver Education, Therapeutic Activities,Therapeutic Exercise PT Services Indicated Yes Treatment Frequency and 2x/wk for 3 weeks Duration These treatments will address the objective and functional deficits as defined above. The patient will be advanced safely and appropriately in order for the patient to progress towards his/her prior level of function. Additional exercises will be introduced and as well as a comprehensive home exercise program upon discharge, if needed, ?to ensure carryover of functional gains achieved in the clinic. This treatment plan has been reviewed and agreement upon by the patient.
--- NOTE | 2022-09-02 13:15 | PTOPDC ---
Assessment and note entered by Jerrica Rose, PT Evaluation Information Assessment Status Discharge Diagnosis s/p R TKR Onset 07-15-22 Subjective Information Pierce reports: doing better with moving around; no longer use the cane; walking around alot, going shopping; Reported Pain Level Pain Score Self Report R knee pain Additional Pain Score Comments pain range of 0-3/10; ache over patella when over do it; reported walking/standing tolerance of 40-45 minutes; no issues with sleeping; Assessment PT Clinical Summary Pierce has received 7 PT sessions. Compared to the initial evaluation: he has improved in all areas: pain rating decreased; reported activity tolerance; sleeping tolerance; strength and ROM of knee; 2 minute walking test distance; 5 reps sit/stand time; and education completed for HEP. All goals were achieved, except single leg standing time. Discharge PT services. Plan of Care PT Services Indicated No
== END 2022-10-26 09:56 | disposition home or self-care (01) ==
LOC: ANHPT 12:30
PROVIDERS: PCP Family Medicine Adolescent Medicine; Visit Provider Nurse Practitioner Family
DX: Z47.1 Aftercare following joint replacement surgery (principal); Z96.651 Presence of right artificial knee joint
CPT/HCPCS: 97014; 97110; 97161; 97530; G0283

== ENCOUNTER 2022-09-21 00:58 | Day surgery (SDC) | payer OTHER, SELFPAY ==
[2022-09-18 16:01] VITALS: BMI 38.0
[2022-09-21] VITALS (17 sets, daily range): BP systolic 128–167; BP diastolic 75–98; PULSE 75–88; RESP 12–22; TEMP 36.2–36.8; O2SAT 94–100; BMI 40.1
[2022-09-21 09:03] LABS: Basophils Percent Auto 0.7 % (0.2-1.2); Eosinophils Absolute Auto 0.3 K/mm3 (0-0.3); Eosinophils Percent Auto 5.5 % (0-4.4); Hematocrit 37.4 % (42.0-52.0); Hemoglobin 11.8 g/dL (14.0-18.0); Immature Granulocyte Absolute 0.03 K/mm3 (0.00-0.031); Immature Granulocyte Percent A 0.5 % (0-0.5); Lymphocytes Absolute Auto 1.21 K/mm3 (0.9-3.2); Lymphocytes Percent Auto 22.1 % (18.3-44.2); Mean Corpuscular HGB Conc 31.6 g/dl (32-36); Mean Corpuscular Hemoglobin 26.8 pg (26-34); Mean Corpuscular Volume 84.8 fl (80-100); Mean Platelet Volume 9.7 fl (7.4-10.4); Monocytes Absolute Auto 0.6 K/mm3 (0.1-0.6); Monocytes Percent Auto 10.2 % (2.6-8.5); Neutrophils Absolute Auto 3.3 K/mm3 (1.3-6.7); Platelet Count Result 231 k/mm3 (150-375); Red Blood Count 4.41 M/mm3 (4.6-6.20); Red Cell Distribution Width 14.7 % (11.5-14.5); White Blood Count 5.5 K/mm3 (4.5-10.0)
[2022-09-21 09:12] LABS: Anion Gap 11 mmol/L (8-16); Blood Urea Nitrogen 17 mg/dL (9-20); Calcium 9.1 mg/dL (8.4-10.2); Carbon Dioxide 28 mmol/L (22-30); Chloride 101 mmol/L (98-107); Estimated CRCL calculation 94 ml/min; Estimated Glomerular Filt Rate > 60; Glucose 154 mg/dL (65-110); Potassium 3.7 mmol/L (3.4-5.0); Sodium 140 mmol/L (137-145)
[2022-09-21 09:13] LABS: INR 1.1
--- NOTE | 2022-09-21 09:40 | WPDHPUPDATE1 ---
History and Physical Update Update Date/Time: 09/21/22 09:40 History and Physical has been reviewed, including an updated exam of the patient. There are NO changes in the patient's condition. Risks, benefits, and alternatives have been discussed and questions answered. Patient agrees to proceed with procedure.
--- NOTE | 2022-09-21 09:43 | WPDMODSED ---
Moderate Sedation Note-Pt Data Patient Data Diagnosis: Abnormal CT angiogram coronary artery, abnormal stress test, CAD Present Complaint: None History and physical update: Patient is a very pleasant 72-year-old male with a past medical history significant for hypertension, dyslipidemia, ANNIE on CPAP, morbid obesity who underwent preoperative ischemic testing which was abnormal revealed prior infarction with minimal eve-infarct ischemia EF 59% with inferior hypokinesis. CT coronary angiography was subsequently pursued on 08/31/2022 which revealed complete occlusion of the distal RCA with greater than 70% stenosis of the LAD and circumflex coronary arteries a calcium score of 2542. EF was noted to be 60% with recommendation to proceed with coronary angiography. Patient is not complaining exertional dyspnea or chest pain suggestive of angina. Given these abnormalities he is referred for coronary angiography for further confirmation given suggestive of multivessel CAD on coronary CT angiogram. Impression: 1. Abnormal stress test and CT angiogram coronary artery suggestive of multivessel CAD 2. Hypertension 3. ANNIE on CPAP 4. Mixed hyperlipidemia 5. Morbid obesity Plan of care: Coronary angiography Aggressive medical management and risk factor modification With recommendations based on results of coronary angiography. Questions answered to patient's satisfaction. Risks benefits and alternatives once again reviewed as previous. Procedure to be performed/Plan: Left heart catheterization with selective left and right coronary angiography with left ventriculography and hemodynamics and possible percutaneous intervention and stent implantation. Allergies Allergy/AdvReac Type Severity Reaction Status Date / Time No Known Allergies Allergy Unknown Verified 09/21/22 08:42 Home Medications Medication Instructions Recorded Confirmed Type meloxicam 15 mg tablet 15 mg PO PRN PRN ARTHRITIS 09/16/20 09/18/22 History mometasone 50 mcg/actuation nasal 50 mcg intranasal QAM 09/16/20 09/18/22 History spray azelastine 205.5 mcg (0.15 %) 2 spray intranasal PRN PRN 09/30/21 09/18/22 History nasal spray Congestion cyanocobalamin (vitamin B-12) 1,000 mcg PO DAILY 09/30/21 09/18/22 History 1,000 mcg tablet (Vitamin B-12) latanoprost 0.005 % eye drops 1 drp EACH EYE HS 09/30/21 09/18/22 History multivitamin 1 tablet PO DAILY 09/30/21 09/18/22 History omega-3 fatty acids-vitamin E 1 cap PO DAILY 09/30/21 09/18/22 History 1,000 mg capsule testosterone cypionate 200 mg/mL 200 mg IM .once every 3 weeks #4 mL 01/05/22 09/18/22 Rx intramuscular oil (Depo-Testosterone) aspirin 81 mg tablet,delayed 81 mg PO DAILY 01/19/22 09/21/22 History release (Adult Aspirin Regimen) lutein 6 mg capsule 6 mg PO DAILY 01/19/22 09/18/22 History losartan 100 1 tablet PO QAM #100 tabs 03/26/22 09/21/22 Rx mg-hydrochlorothiazide 25 mg tablet coQ10 (ubiquinol) 100 mg capsule 100 mg PO DAILY 04/06/22 09/18/22 History sildenafil 100 mg tablet 100 mg PO PRN ERECTIAL DYSFUNCTION 04/06/22 09/18/22 History glucosamine sulf dipot 2 cap PO DAILY 04/20/22 09/18/22 History chlr,msm,chond 550 mg-C 30 mg-mari 1 mg capsule (Glucosamine Chondroitin) pilocarp[place] HCl 5 mg tablet 10 mg PO TID 04/20/22 09/21/22 History pantoprazole 40 mg tablet,delayed 40 mg PO DAILY #90 tabs 05/05/22 09/18/22 Rx release atorvastatin 20 mg tablet 20 mg PO DAILY #90 tabs 05/22/22 09/18/22 Rx peg 400-propylene glycol (PF) 0.4 1 drp EACH EYE DAILY 07/01/22 09/18/22 History %-0.3 % eye drops in a dropperette (Systane (PF)) calcium 500 mg tablet 600 mg PO DAILY 09/01/22 09/18/22 History famotidine 40 mg tablet See Rx Instructions .Route 09/14/22 09/18/22 Rx .COMPLEX #90 tabs Current Medications: Active Medications Sodium Chloride (Normal Saline Iv) 500 mls @ 100 mls/hr IV CONT .Q5H [facility] Sedation/Anesthesia: No previous sedation/anesthesia problems (inc
--- NOTE | 2022-09-21 09:51 | PM.OP ---
Procedure Note - Brief Procedure Note - Brief Date of procedure: 09/21/22 Pre-op diagnosis: abnormal cta CAD, abnormal stress test, abnormal CT coronary angiogram Procedure performed: Left heart catheterization with selective left and right coronary angiography with left ventriculography and hemodynamics Description of procedure: BRIEF HISTORY OF PRESENT ILLNESS: Patient is a pleasant 72-year-old gentleman history of hypertension, hyperlipidemia, ANNIE on CPAP, morbid obesity with abnormal stress test suggestive of inferior infarction with CT coronary angiogram which revealed complete distal occlusion of RCA with greater than 70% stenosis of the LAD and circumflex and preserved LV systolic function with recommendation for coronary angiography for further delineation of coronary anatomy. Patient denies exertional dyspnea and or chest pain at this time. PROCEDURES PERFORMED: 1. Left heart catheterization 2. Selective left and right coronary angiography 3. Left ventriculography and hemodynamics 4. Moderate/conscious sedation administration CATHETERS UTILIZED: Left coronary system- 5 [place] JL4 catheter Right coronary system- 5 [place] JR4 catheter Left ventriculography and hemodynamics- 5 [place] angled pigtail catheter PROCEDURE IN DETAIL: After verbal and written informed consent was obtained the patient, risks, benefits, and alternatives explained in detail the patient agreed to proceed with the plan of care as outlined above. The patient was subsequently brought to the cardiac catheterization lab, placed on the cardiac catheterization table, and prepped and draped in the usual sterile fashion. Utilizing approximately 16cc of 1% subcutaneous Lidocaine, the right groin was then locally anesthetized. Utilizing the modified Seldinger technique, a 5 [place] arterial vascular access sheath was inserted in the right common femoral artery easily and without complications. Through this access, coronary angiography was subsequently obtained in multiple standard re-projections. Following this, a 5 [place] angled pigtail catheter was advanced retrograde across aortic valve into the cavity of the left ventricle. Left ventriculography was performed and pullback across aortic valve was subsequently recorded. The vascular access sheath and angiographic catheters were flushed before and after catheter exchanges. At the conclusion of the diagnostic portion of the procedure, all angiographic guidewires and catheters were removed and the 5 [place] arterial vascular access sheath was then pulled and satisfactory hemostasis was achieved using manual compression. There no complications noted at the conclusion of the diagnostic portion of the study. MODERATE SEDATION/ANESTHESIA ADMINISTRATION: Patient reports no prior problems with sedation/anesthesia. Please see pre-sedation noted for physical examination documentation. Sedation start time was 1024 and end time was 1102 for a total intra-service/procedure face-face time of 28 minutes. A total of 2 mg intravenous Versed and a total of 50 mcg intravenous Fentanyl in multiple divided doses was administered for moderate sedation. Moderate sedation was administered by qualified/certified observer Carla Fragoso RN under my supervision with intra-procedure [id number] observation and management throughout the entirety of the procedure. There were no other issues or complications and patient tolerated the procedure well. See post-anesthesia documentation. Implants: N/A Surgeon: Kemal Mccauley MD Estimated blood loss (mL): 10 Complications: No immediate complications Condition: Stable Disposition: Same day Findings: CORONARY ANGIOGRAPHY: The LEFT MAIN arose from the left coronary cusp and was without angiographically significant disease and trifurcated into the LAD, ramus intermedius branch, and circumflex coronary artery. Dense calcification of proximal segments of the circumflex and LAD observed.
== END 2022-09-21 16:05 | disposition home or self-care (01) ==
PROVIDERS: PCP Family Medicine Adolescent Medicine; Visit Provider Internal Medicine Cardiovascular Disease
PROC: 4A023N7 Measurement of Cardiac Sampling and Pressure, Left Heart, Percutaneous Approach (ICD-10-PCS; CPT 93452; principal; 2022-09-21 10:00)
DX: I25.10 Atherosclerotic heart disease of native coronary artery without angina pectoris (principal); R93.1 Abnormal findings on diagnostic imaging of heart and coronary circulation; R94.39 Abnormal result of other cardiovascular function study; I11.9 Hypertensive heart disease without heart failure; E78.5 Hyperlipidemia, unspecified; G47.33 Obstructive sleep apnea (adult) (pediatric); E66.01 Morbid (severe) obesity due to excess calories; Z68.41 Body mass index [BMI] 40.0-44.9, adult; Z79.82 Long term (current) use of aspirin; K21.9 Gastro-esophageal reflux disease without esophagitis
CPT/HCPCS: 36415; 80048; 85025; 85610; 93458; C1887; C1894; J1644; J2250; J3010; J7040

== ENCOUNTER 2023-08-23 13:23 | Outpatient (CLI) | payer OTHER, SELFPAY ==
--- NOTE | ~2023-08-23 | CT_ITS ---
EXAMINATION: CT shoulder RT wo con DATE: 08/23/2023 13:56 INDICATION: Right glenohumeral joint osteoarthritis. Preop. TECHNIQUE: Computed tomography (CT) of the right shoulder was performed without intravenous contrast. Automated exposure control and iterative reconstruction technique were employed. The dose-length pro duct was 691.82 mGy-cm. COMPARISON: Right shoulder radiographs 04/22/2023 FINDINGS: There is superior subluxation of humeral head with narrowing of the subacromial space and r emodeling of the acromion, consistent with chronic rotator cuff tear with cuff arthropathy. No fractu re. There is severe osteoarthritis of acromioclavicular joint with loose bodies. There is severe oste oarthritis of glenohumeral joint including bone volume loss of the glenoid. There is a moderate-sized glenohumeral joint effusion with loose bodies. There is moderate fatty atrophy of supraspinatus and infraspinatus muscle bellies. IMPRESSION: 1. Severe polyarticular osteoarthritis. 2. Chronic rotator cuff tear with cuff arthropathy. 3. Moderate-sized glenohumeral joint effusion with loose bodies. Reviewed, dictated and finalized at location A.
== END 2023-08-23 13:24 | disposition home or self-care (01) ==
PROVIDERS: PCP Family Medicine Adolescent Medicine; Visit Provider Orthopaedic Surgery
DX: M19.011 Primary osteoarthritis, right shoulder (principal)
CPT/HCPCS: 73200

== ENCOUNTER 2023-09-16 09:54 | Outpatient (CLI) | payer OTHER, SELFPAY ==
[2023-09-16 11:15] LABS: Basophils Percent Auto 0.7 % (0.2-1.2); Eosinophils Absolute Auto 0.1 K/mm3 (0-0.3); Eosinophils Percent Auto 1.9 % (0-4.4); Hematocrit 44.2 % (42.0-52.0); Hemoglobin 13.5 g/dL (14.0-18.0); Immature Granulocyte Absolute 0.01 K/mm3 (0.00-0.031); Immature Granulocyte Percent A 0.2 % (0-0.5); Lymphocytes Absolute Auto 1.43 K/mm3 (0.9-3.2); Lymphocytes Percent Auto 24.6 % (18.3-44.2); Mean Corpuscular HGB Conc 30.5 g/dl (32-36); Mean Corpuscular Hemoglobin 24.6 pg (26-34); Mean Corpuscular Volume 80.5 fl (80-100); Mean Platelet Volume 9.8 fl (7.4-10.4); Monocytes Absolute Auto 0.5 K/mm3 (0.1-0.6); Monocytes Percent Auto 8.8 % (2.6-8.5); Neutrophils Absolute Auto 3.7 K/mm3 (1.3-6.7); Neutrophils Percent Auto 63.8 % (45.5-73.1); Platelet Count Result 177 k/mm3 (150-375); Red Blood Count 5.49 M/mm3 (4.6-6.20); Red Cell Distribution Width 19.9 % (11.5-14.5); White Blood Count 5.8 K/mm3 (4.5-10.0)
[2023-09-16 11:27] LABS: Anion Gap 8 mmol/L (8-16); Blood Urea Nitrogen 17 mg/dL (9-20); Calcium 9.7 mg/dL (8.4-10.2); Carbon Dioxide 28 mmol/L (22-30); Chloride 100 mmol/L (98-107); Estimated Glomerular Filt Rate > 60; Glucose 159 mg/dL (65-110); Potassium 4.1 mmol/L (3.4-5.0); Sodium 136 mmol/L (137-145)
== END 2023-09-16 09:55 | disposition home or self-care (01) ==
LOC: ANHSURGERY 09:58
PROVIDERS: Anesthesiology; PCP Family Medicine Adolescent Medicine; Visit Provider Orthopaedic Surgery
DX: Z01.818 Encounter for other preprocedural examination (principal); M12.811 Other specific arthropathies, not elsewhere classified, right shoulder; Z79.899 Other long term (current) drug therapy
CPT/HCPCS: 36415; 80048; 85025; 86850; 86900; 86901; 87081

== ENCOUNTER 2023-09-21 00:52 | Day surgery (SDC) | payer OTHER, SELFPAY ==
--- NOTE | 2023-09-16 09:53 | PC.NURSE ---
PRE-OP INSTRUCTIONS, PLEASE READ CAREFULLY Report to the Outpatient Waiting Room, entrance under the green pavilion located off [facility], at time _0600_ on date _09/21/23_. Planned Procedure Time: _0730_. PACK A SMALL OVERNIGHT BAG AND LEAVE IN THE CAR Time changes happen often and if your time is changed the preop area will call you the afternoon before. - You and your visitor will be asked to self-screen and do not enter if you have any COVID symptoms. - A mask is optional within the hospital at this time. -VISITING HOURS 8AM-8PM Patients may have clear liquids (water, carbonated beverages, clear teas, apple juice) until 3 hours prior to surgery (0430 AM) with a maximum of 20 ounces. - No food from midnight until time of surgery Take the following medications with a SIP of water the morning of surgery: _NONE_ DO NOT STOP ANY OF YOUR OTHER PRESCRIPTION MEDICATIONS PRIOR TO SURGERY ?EXCEPT THE FOLLOWING Medications to discontinue per DR. GUEVARA - _MELOXICAM -PT STATES LAST DOSE 09/06/23 _ Medications to discontinue - _MULTIVITAMIN/SUPPLEMENTS PT STATES STOPPING 09/15/23_ Please no make-up, nail romanian, hairspray, perfume, deodorant, or body powder the day of surgery. No jewelry (including any body piercings) or valuables the day of surgery, leave them at home. Please take a shower or bath the night before, or the morning of, surgery with an antibacterial soap. Wear comfortable, loose fitting clothing. - Jewelry must be removed prior to entering the operating room. Rings and piercings that are not removed may be cut off. - The hospital will not accept responsibility for valuables. - Please leave all valuables, including medications, at home the day of surgery. If you are going home after surgery, a licensed services delivery driver must drive you home. - NO public transportation without another adult if you receive anesthesia. - We recommend that an adult stay with you for 24 hours following discharge. - We also recommend that you do not drive, make important decision, drink alcoholic beverages, or take any drugs that were not prescribed by your health care provider for at least 24 hours after your discharge time. Follow any additional instructions given to you from your surgeon. If you or anyone in your household have experienced Covid symptoms in the past week, please notify your surgeon or the nurse liaison at the phone number below for possible testing. Instructions given to _PATIENT_and asked if any additional questions and then verbalized understanding. Patient advised to call surgeon office or pre surgery nurse liaison [phone] if any additional questions.
[2023-09-16 10:30] VITALS: BP 128/74; PULSE 76; RESP 20; TEMP 37; O2SAT 98; BMI 38.3
--- NOTE | 2023-09-20 14:08 | WPDANESEPPF ---
Anes - Initial Pre Proc Eval Procedure: Operation Date: 09/21/23 07:30 Proposed Procedures p Right Reverse Total Shoulder Arthroplasty - Anurag Sosa MD Date/Time: 09/20/23 14:08 Surgeon: Anurag Sosa MD Pre Op Diagnosis: right shoulder rotator cuff arthropathy Patient Data Age: 73 Gender: M Height: 1.75 m Weight: 117 kg Last Vital Signs Temp 37.0 C 09/16/23 10:30 Pulse 76 09/16/23 10:30 Resp 20 09/16/23 10:30 BP 128/74 09/16/23 10:30 Pulse Ox 98 09/16/23 10:30 O2 Del Method Room Air 09/16/23 10:30 Allergies Allergy/AdvReac Type Severity Reaction Status Date / Time No Known Allergies Allergy Unknown Verified 09/21/23 06:08 Home Medications Medication Instructions Recorded Confirmed Type meloxicam 15 mg tablet 15 mg PO PRN PRN ARTHRITIS 09/16/20 09/16/23 History mometasone 50 mcg/actuation nasal 50 mcg intranasal QAM 09/16/20 09/21/23 History spray azelastine 205.5 mcg (0.15 %) 2 spray intranasal PRN PRN 09/30/21 09/21/23 History nasal spray Congestion cyanocobalamin (vitamin B-12) 5,000 mcg PO DAILY 09/30/21 09/21/23 History 1,000 mcg tablet (Vitamin B-12) latanoprost 0.005 % eye drops 1 drp EACH EYE HS 09/30/21 09/21/23 History multivitamin 1 tablet PO DAILY 09/30/21 09/21/23 History omega-3 fatty acids-vitamin E 1 cap PO DAILY 09/30/21 09/21/23 History 1,000 mg capsule aspirin 81 mg tablet,delayed 81 mg PO DAILY 01/19/22 09/21/23 History release (Adult Aspirin Regimen) lutein 6 mg capsule 6 mg PO DAILY 01/19/22 09/21/23 History coQ10 (ubiquinol) 100 mg capsule 200 mg PO DAILY 04/06/22 09/21/23 History glucosamine sulf dipot 1 cap PO BID 04/20/22 09/21/23 History chlr,msm,chond 550 mg-C 30 mg-mari 1 mg capsule (Glucosamine Chondroitin) pilocarpine HCl 5 mg tablet 5 mg PO QID 04/20/22 09/21/23 History calcium 500 mg tablet 600 mg PO DAILY 09/01/22 09/21/23 History pantoprazole 40 mg tablet,delayed See Rx Instructions .Route 01/29/23 09/21/23 Rx release .COMPLEX #90 tabs testosterone cypionate 200 mg/mL 200 mg IM .once every 3 weeks #4 mL 04/13/23 09/21/23 Rx intramuscular oil (Depo-Testosterone) famotidine 40 mg tablet See Rx Instructions .Route 06/06/23 09/21/23 Rx .COMPLEX #90 tabs sildenafil 100 mg tablet See Rx Instructions .Route 06/18/23 09/16/23 Rx .COMPLEX #6 tabs atorvastatin 20 mg tablet 20 mg PO DAILY #90 tabs 08/12/23 09/21/23 Rx losartan 100 1 tablet PO QAM #100 tabs 09/12/23 09/21/23 Rx mg-hydrochlorothiazide 25 mg tablet peg 400-propylene glycol (PF) 0.4 1 drp EACH EYE DAILY 09/15/23 09/21/23 History %-0.3 % eye drops in a dropperette (Systane (PF)) calcium polycarbophil 625 mg 1,250 mg PO BID 09/16/23 09/21/23 History tablet (Fiber Laxative (calcium polycarbophil)) cholecalciferol (vitamin D3) 50 100 mcg PO DAILY 09/16/23 09/21/23 History mcg (2,000 unit) capsule vitamin B complex 1 cap PO DAILY 09/16/23 09/21/23 History Patient hx anesthesia problems: none Family hx anesthesia problems: none Results Review: All pre-operative results and documents have been reviewed as part of the pre-operative evaluation. [facility] Past Medical History Medical History Carpal tunnel syndrome on both sides Chronic GERD Fungal infection History of colon polyps HTN (hypertension) Knee cartilage, torn, right Male erectile dysfunction, unspecified Normal colonoscopy 09/17 Repeat 09/27 Obesity Occult blood in stools ANNIE on CPAP Osteoarthritis of left hip 12/20 mild Other ill-defined heart diseases Diastolic dysfunction Echo 11/18 Presbycusis, bilateral Sacrocoxalgia of right side of sacrum Testicular hypofunction Type 2 diabetes mellitus without complications Surgical History Surgical History H/O shoulder surgery 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
[2023-09-21] VITALS (14 sets, daily range): BP systolic 117–148; BP diastolic 69–85; PULSE 65–86; RESP 16–20; TEMP 36.3–37.1; O2SAT 94–100
--- NOTE | ~2023-09-21 | XR_ITS ---
EXAMINATION: XR shoulder RT min 2V DATE: 09/21/2023 10:50 INDICATION: Right shoulder arthroplasty TECHNIQUE: 2 views right shoulder FINDINGS: There is a right total shoulder arthroplasty in expected position. Subcutaneous gas with s oft tissue swelling are consistent with recent surgery. IMPRESSION: 1. Recent right total shoulder arthroplasty. Reviewed, dictated and finalized at location L.
[2023-09-21] MEDS: ACETAMINOPHEN 500 MG TABLET 1000 MG PO ×2 (06:18→17:08)
[2023-09-21 06:57] LABS: Glucose Point of Care 125 mg/dl (65-105)
[2023-09-21] MEDS: LACTATED RINGERS 1,000 ML 30 ML IV CONT ×2 (07:05→10:26)
--- NOTE | 2023-09-21 07:05 | WPDANESPNB ---
Anes - Peripheral Nerve Block Date/Time: 09/21/23 07:05 I have discussed with the patient/family/POA the placement of a peripheral nerve block for post-operative pain management, including associated risks, benefits, complications, and side effects. Alternative methods of post-operative analgesia were detailed. Questions were solicited and answers provided to the satisfaction of the patient/family/POA. Time-Out: A pre-procedural Time-Out was completed immediately before starting the procedure and confirmed: Patient Identification, Site, Procedure, Patient Position and the Availability of Requisite Equipment. Clinical Indications: Acute post-operative pain management requested by the operative surgeon. Nerve Block Insertion Note Anes-nerve block: interscalene right Patient position: supine Skin prep: chlorhexidine Needle: 22 gauge, stimulating, insulated echogenic needle. Needle length: 50 mm Technique: ultrasound Injectate: bupivacaine 0.5% with epi 5 mcg/ml (30cc- no epi) Observations: tolerated well Complications: none Procedure start time:: 738 Procedure end time:: 742
[2023-09-21] MEDS: TRANEXAMIC ACID 1,000MG/ISO100 1,000 MG/100 ML BAG 200 MG IVPB (07:10)
--- NOTE | 2023-09-21 07:41 | WPDHPUPDATE1 ---
History and Physical Update Update Date/Time: 09/21/23 07:41 History and Physical has been reviewed, including an updated exam of the patient. There are NO changes in the patient's condition. Risks, benefits, and alternatives have been discussed and questions answered. Patient agrees to proceed with procedure.
[2023-09-21] MEDS: ceFAZolin 2 GM/D5W 50 ML 2 GM/50 ML BAG IVPB ×2 (07:48→15:55)
[2023-09-21] MEDS: VANCOMYCIN HCL 1,000 MG VIAL 1000 MG TOPICAL (08:45)
[2023-09-21] MEDS: TRANEXAMIC ACID 1,000 MG/10 ML AMPUL 1000 MG IV PUSH (10:13)
--- NOTE | 2023-09-21 10:51 | W.PM.PROC2 ---
Procedure Note - Detailed Date of Procedure 09/21/23 Pre-op Diagnosis Right shoulder rotator cuff arthropathy Post-op Diagnosis Same Procedure Performed Reverse total shoulder arthroplasty, right. Surgeon Aunrag Sosa MD Imitation Marble Mechanic Yojana Murphy PA-C Anesthesia General and Regional (Interscalene block.) Findings Extensive scar tissue from previous open rotator cuff repair. The supraspinatus repair was partially intact. The infraspinatus was attenuated and with quite poor tissue. Extensive scarring in the capsule 360? which required capsulectomy. Excellent bone quality. 15 degree augment used at the posterior superior aspect according to preoperative templating. Description of Procedure The patient was given an interscalene block in the preoperative area. Preoperative antibiotics were given. The patient was transferred to the operating room and a general anesthetic was administered. The beach chair position was used at 45 degrees. All bony prominences were padded. The head was carefully stabilized on the On license of [facility] butcher head. A sterile prep and drape was performed in the usual manner with ChloraPrep. A longitudinal incision was created at the anterior shoulder just lateral to the deltopectoral interval. Hydrogen peroxide was placed on the incision and then rinsed after one minute. Careful dissection was performed to expose the interval and protect the cephalic vein. The vein was retracted medially. The upper border of the pectoralis was released. Anterior circumflex vessel branches were suture ligated. The biceps was previously tenodesed. A subscapularis tenotomy was performed. The inferior capsule was released, exposing the humeral head. Osteophytes were removed. Care was taken to stay on bone to protect the axillary nerve. The anatomic head cut was taken with the oscillating saw. The guide pin was placed, central drilling performed, and the broach trial inserted. The neck anteversion and inclination were carefully assessed. The cut protector was placed, and attention was turned to the glenoid. Retractors were placed. Releases were carried out for exposure. The subscapularis was mobilized, the inferior capsule and long head of triceps released, and the superior and middle glenohumeral ligaments released as well. Labral tissue was resected as needed. The sizing template was used to assess the baseplate position low center on the glenoid. A guide pin was placed for the 15 degree augment. Minimal reaming was used to accomplish a flat surface without violating the subchondral bone. Version was corrected according to preoperative templating. The boss was drilled, and the real component was impacted into position. Supplemental locking screws were placed centrally, superiorly, and inferiorly. The glenosphere was impacted into the taper. The proximal humerus was reamed for the inset component. The humeral components were trialed. The real humeral stem, tray, and insert were impacted into position. The shoulder was copiously irrigated periodically with pulsatile lavage. The shoulder was reduced and stability confirmed. 1 gram of Vancomycin powder was placed in the joint. The pectoralis tendon was repaired. The deltopectoral space was reapproximated with number 1 Vicryl. A deep Hemovac drain was placed. The remaining tissue was closed with 0 Quill and 2-0 Quill running suture and steri-strips. A sterile silver occlusive dressing and shoulder immobilizer were placed. The patient was transferred to the recovery room. Physician server assistant, Yojana Murphy PA-C, required for surgery; including patient positioning, draping, tissue retraction, maintaining instrument position, wound closure, and dressing placement. Implants Shoulder Innovations reverse TSA size 0 stem. +3 polyethylene insert. Standard baseplate. 36 +6 mm glenosphere. Estimated Blood Loss -200.0 Drains Yes (deep hemovac) Pathology None sent Complications No immediate complications Condition St
--- NOTE | 2023-09-21 11:20 | PC.NURSE ---
This patient, Pierce Phillip, was admitted to 3 [facility] Surg Room 320-01. Patient/family oriented to hospital policies and general routines including ID bracelet, bed and alarms, visiting hours, pain management, procedures, bathroom and other care routines, personal items, smoking policy, room service/diet, and visiting hours. Information on how to activate the Rapid Response Team has been discussed. Patient/Family are encouraged to report perceived risks to care and to ask questions if they do not understand what they are told or what they should do.
[2023-09-21] MEDS: SODIUM CHLORIDE 0.9% IV 1,000 ML 125 ML IV CONT (12:40)
[2023-09-21] MEDS: ASPIRIN 81 MG ENTERIC TABLET PO (17:07)
[2023-09-21] MEDS: SENNA/DOCUSATE SODIUM TABLET 2 TAB PO (17:08)
[2023-09-21] MEDS: MELOXICAM 7.5 MG TABLET PO (18:10)
[2023-09-21] MEDS: oxyCODONE HCL (*CRX) 5 MG TAB IR PO (18:42)
[2023-09-21] MEDS: FAMOTIDINE 20 MG TABLET 40 MG PO (21:38)
[2023-09-21] MEDS: LATANOPROST 0.005% OP SOLN 2.5 ML BTL 1 DROP EACH EYE (21:39)
[2023-09-21] MEDS: ATORVASTATIN 20 MG TABLET PO (21:39)
[2023-09-22] VITALS: BP 131/78; PULSE 72; RESP 18; TEMP 36.6; O2SAT 97
[2023-09-22] MEDS: ACETAMINOPHEN 500 MG TABLET 1000 MG PO ×3 (00:11→11:48)
[2023-09-22] MEDS: ceFAZolin 2 GM/D5W 50 ML 2 GM/50 ML BAG IVPB ×2 (00:11→07:31)
[2023-09-22 04:00] VITALS: BP 130/70; PULSE 86; RESP 18; TEMP 37; O2SAT 97
[2023-09-22] MEDS: oxyCODONE HCL (*CRX) 5 MG TAB IR PO (06:09)
[2023-09-22 06:12] LABS: Basophils Percent Auto 0.3 % (0.2-1.2); Eosinophils Percent Auto 0.3 % (0-4.4); Hematocrit 39.3 % (42.0-52.0); Hemoglobin 12.2 g/dL (14.0-18.0); Immature Granulocyte Absolute 0.04 K/mm3 (0.00-0.031); Immature Granulocyte Percent A 0.4 % (0-0.5); Lymphocytes Absolute Auto 1.51 K/mm3 (0.9-3.2); Lymphocytes Percent Auto 14.7 % (18.3-44.2); Mean Corpuscular Hemoglobin 25.5 pg (26-34); Mean Platelet Volume 10.9 fl (7.4-10.4); Monocytes Absolute Auto 1.1 K/mm3 (0.1-0.6); Monocytes Percent Auto 10.9 % (2.6-8.5); Neutrophils Absolute Auto 7.5 K/mm3 (1.3-6.7); Neutrophils Percent Auto 73.4 % (45.5-73.1); Platelet Count Result 183 k/mm3 (150-375); Red Blood Count 4.79 M/mm3 (4.6-6.20); Red Cell Distribution Width 20.5 % (11.5-14.5); White Blood Count 10.3 K/mm3 (4.5-10.0)
[2023-09-22 06:24] LABS: Anion Gap 3 mmol/L (8-16); Blood Urea Nitrogen 14 mg/dL (9-20); Calcium 8.7 mg/dL (8.4-10.2); Carbon Dioxide 28 mmol/L (22-30); Chloride 102 mmol/L (98-107); Estimated CRCL calculation 91 ml/min; Estimated Glomerular Filt Rate > 60; Glucose 138 mg/dL (65-110); Potassium 3.9 mmol/L (3.4-5.0); Sodium 133 mmol/L (137-145)
[2023-09-22 08:00] VITALS: BP 141/70; PULSE 85; RESP 16; TEMP 36.5; O2SAT 97
[2023-09-22] MEDS: SENNA/DOCUSATE SODIUM TABLET 2 TAB PO (08:02)
[2023-09-22] MEDS: ASPIRIN 81 MG ENTERIC TABLET PO (08:02)
[2023-09-22] MEDS: MELOXICAM 7.5 MG TABLET PO (08:03)
[2023-09-22] MEDS: LOSARTAN POTASSIUM 100 MG TABLET PO (08:03)
[2023-09-22] MEDS: PANTOPRAZOLE 40 MG TABLET PO (08:03)
[2023-09-22] MEDS: hydroCHLOROthiazide 25 MG TABLET PO (08:03)
[2023-09-22] MEDS: FLUTICASONE PROPIONATE 0.05% NA SPR 16 GM BTL (*BKC) 2 SPRAY NASAL (08:04)
[2023-09-22 12:00] VITALS: BP 116/64; PULSE 82; RESP 15; TEMP 37.2; O2SAT 97
--- NOTE | 2023-09-22 13:08 | PM.DS ---
DS: Admitting Diagnosis Discharge Date 09/22/23 Admitting Diagnosis Glenohumeral joint arhtrits. DS: Discharge Diagnosis Discharge Diagnosis (1) Status post reverse total arthroplasty of right shoulder: Code(s): Z96.611 - Presence of right artificial shoulder joint Status: Acute Assessment and Plan: Postop day 1: Right reverse total shoulder arthroplasty. Patient tolerated procedure well. No complications. Pain manageable with pain medication. No numbness or tingling. We had a lengthy discussion regarding postoperative wound care, limitations, expectations, and exercises. Patient shows good understanding. He has had initial physical therapy and is tolerating it well. Drain was placed at the time of surgery. This has been removed. DVT prophylaxis: 81 mg baby aspirin b.i.d. for 14 days. Pain medication: Percocet. Patient has followup appointment with Dr. Sosa in 3 weeks. DS: Summary Hospital Course Hospital Course: Patient presents for elective reverse total shoulder arthroplasty. No complications. He has had initial PT.OT and tolerating it well. Status at Discharge Functional status at discharge: independent ambulation Overall status at discharge: patient is progressing back to baseline Time Spent with Patient Time attestation: Total time spent providing and/or coordinating discharge services: Exam Narrative: Overweight male 73 y/o. Resting comfortably in chair. Wearing sling. Dressing dry and intact with no drainage. Moderate swelling. Moderate ecchymosis. No erythema. No hematoma. Range of motion limited due to pain. Calf nontender. Neurologic status intact. No varicosities. Distal pulses palpable. DS: Data Data Completed and Pending Labs on day of discharge: Labs from last 24 hours 09/22/23 05:55 WBC 10.3 H RBC 4.79 Hgb 12.2 L Hct 39.3 L MCV 82.0 MCH 25.5 L MCHC 31.0 L RDW 20.5 H Plt Count 183 MPV 10.9 H Immature Gran % (Auto) 0.4 Neut % (Auto) 73.4 H Lymph % (Auto) 14.7 L [place] % (Auto) 10.9 H Eos % (Auto) 0.3 Baso % (Auto) 0.3 Lymph # (Auto) 1.51 [place] # (Auto) 1.1 H Eos # (Auto) 0.0 Baso # (Auto) 0.0 Abs Immat Gran (auto) 0.04 H Absolute Neuts (auto) 7.5 H Absolute Nucleated RBC 0.0 Nucleated RBC % 0.0 Sodium 133 L Potassium 3.9 Chloride 102 Carbon Dioxide 28 Anion Gap 3 L BUN 14 Creatinine 0.80 Estim Creat Clear Calc 91 Estimated GFR > 60 Glucose 138 H Calcium 8.7 Discharge Plan Discharge Patient Disposition: Home, Self-Care Discharge Instructions: See green instruction sheets Patient Instructions: Narcotic Safety (DC), Surgical Site Infections (GEN) Stand Alone Forms: General Discharge Instructions Follow-up/Referrals: Yojana Murphy PA [Physician Automation Engineer] - Discharge Medications: New aspirin 81 mg tablet,delayed release (DR/EC) 81 mg PO BID 14 Days Qty: 28 0RF hydrocodone-acetaminophen 5-325 mg tablet 1 - 2 tablet PO Q4-6H MDD 6 PRN (Reason: pain) Qty: 30 0RF meloxicam 15 mg tablet 15 mg PO DAILY Qty: 30 0RF Rx Instructions: Cut in half. Take 1/2 in morning and 1/2 at night. Take with food. Stop if stomach upset. Continued calcium polycarbophil [Fiber Laxative (ca polycarbo)] 625 mg Tablet 1,250 mg PO BID vitamin B complex Capsule 1 cap PO DAILY cholecalciferol (vitamin D3) 50 mcg (2,000 unit) Capsule 100 mcg PO DAILY meloxicam 15 mg tablet 15 mg PO PRN PRN (Reason: ARTHRITIS) Hold Instructions: Resume on 05/28/22. mometasone 50 mcg/actuation spray,non-aerosol 50 mcg INTRANASAL QAM pilocarpine HCl 5 mg tablet 5 mg PO QID multivitamin Tablet 1 tablet PO DAILY latanoprost 0.005 % drops 1 drp EACH EYE HS cyanocobalamin (vitamin B-12) [Vitamin B-12] 1,000 mcg Tablet 5,000 mcg PO DAILY omega-3 fatty acids-vitamin E 1,000 mg Capsule 1 cap PO DAILY azelastine 20
== END 2023-09-22 14:50 | disposition home or self-care (01) ==
LOC: ANHSURGERY 07:40 → ANH3MEDSUR 12:11
PROVIDERS: Physician Assistant Surgical; PCP Family Medicine Adolescent Medicine; Visit Provider Orthopaedic Surgery
PROC: (CPT 23472; principal; 2023-09-21 07:30)
DX: M12.811 Other specific arthropathies, not elsewhere classified, right shoulder (principal); G89.18 Other acute postprocedural pain; K21.9 Gastro-esophageal reflux disease without esophagitis; I10 Essential (primary) hypertension; G47.33 Obstructive sleep apnea (adult) (pediatric); E11.9 Type 2 diabetes mellitus without complications; Z79.899 Other long term (current) drug therapy; Z79.82 Long term (current) use of aspirin; Z86.010 Personal history of colon polyps; Z82.49 Family history of ischemic heart disease and other diseases of the circulatory system; Z96.652 Presence of left artificial knee joint; E66.9 Obesity, unspecified; Z68.38 Body mass index [BMI] 38.0-38.9, adult
CPT/HCPCS: 23472; 64415; 36415; 73030; 80048; 82948; 85025; 86850; 86900; 86901; 87081; 97110; 97116; 97161; 97165; 97530; 97535; A4565; A9270; C1776; J0171; J0690; J1100; J1170; J1885; J2250; J2270; J2405; J2704; J2795; J3010; J3370; J7030; J7120

== ENCOUNTER 2023-10-29 09:53 | Outpatient (CLI) | payer OTHER, SELFPAY ==
--- NOTE | ~2023-10-29 | CT_ITS ---
EXAMINATION: CT shoulder LT wo con DATE: 10/29/2023 10:20 INDICATION: Left shoulder osteoarthritis. Preop planning. TECHNIQUE: Computed tomography (CT) of the left shoulder was performed without intravenous contrast. Automated exposure control and iterative reconstruction technique were employed. The dose-length prod uct was 519.77 mGy-cm. COMPARISON: Left shoulder radiographs 04/22/2023 FINDINGS: There is superior subluxation of humeral head with respect to glenoid with narrowing of the subacromial space and remodeling of the acromion and humeral head, consistent with chronic rotator c uff tear with cuff arthropathy. There is severe osteoarthritis of glenohumeral joint and acromioclavi cular joint. There is a glenohumeral joint effusion with loose bodies. There are loose bodies in suba cromial/subdeltoid bursa. There is moderate to severe fatty atrophy of supraspinatus and infraspinatu s muscle bellies and superior subscapularis muscle belly. IMPRESSION: 1. Polyarticular osteoarthritis. Loose bodies in glenohumeral joint and subacromial/subdeltoid bursa. 2. Chronic rotator cuff tear with cuff arthropathy. Reviewed, dictated and finalized at location A. STANT PROFESSOR OF SURGERY IMPRESSION: 1. Polyarticular osteoarthritis. Loose bodies in glenohumeral joint and subacro mial/subdeltoid bursa. 2. Chronic rotator cuff tear with cuff arthropathy.
== END 2023-10-29 09:54 | disposition home or self-care (01) ==
PROVIDERS: PCP Family Medicine Adolescent Medicine; Visit Provider Orthopaedic Surgery
DX: M19.012 Primary osteoarthritis, left shoulder (principal); M75.102 Unspecified rotator cuff tear or rupture of left shoulder, not specified as traumatic
CPT/HCPCS: 73200

== ENCOUNTER 2023-11-10 13:19 | Outpatient (CLI) | payer OTHER, SELFPAY ==
--- NOTE | ~2023-11-10 | XR_ITS ---
EXAM: XR shoulder RT min 2V DATE: 11/10/2023 13:36 HISTORY: Z96.611 -POST OP FOLLOW UP 6WKS . COMPARISON: 10/13/2023, 09/21/2023. FINDINGS: Uncomplicated right shoulder arthroplasty hardware. Normal mineralization. No fracture or dislocation. No lytic or blastic lesion. Moderate degenerative change at the AC joint. No erosion or periosteal change. Soft tissues within normal limits. IMPRESSION: No radiographic evidence of hardware related complication. Reviewed, dictated and finalized at location K. DEALER
== END 2023-11-10 13:20 | disposition home or self-care (01) ==
PROVIDERS: PCP Family Medicine Adolescent Medicine; Visit Provider Physician Assistant Surgical
DX: Z96.611 Presence of right artificial shoulder joint (principal)
CPT/HCPCS: 73030

== ENCOUNTER 2024-01-26 11:50 | Outpatient (CLI) | payer OTHER, SELFPAY ==
--- NOTE | 2024-01-26 12:28 | ECG_ITS ---
Measurements Intervals [place] Rate: 67 P: 30 RI: 205 QRS: 1 QRSD: 115 T: 4 QT: 375 QTc: 398 Interpretive Statements SINUS RHYTHM MODERATE INTRAVENTRICULAR CONDUCTION DELAY [110+ ms QRS DURATION] COMPARED TO ECG 07/01/2022 11:07:59 NO SIGNIFICANT CHANGES Electronically Signed On 01-26-2024 16:45:42 RECORDS TECHNICIAN by Raffy Cohen M.D.
[2024-01-26 13:10] LABS: Basophils Percent Auto 0.5 % (0.2-1.2); Eosinophils Absolute Auto 0.3 K/mm3 (0-0.3); Eosinophils Percent Auto 4.6 % (0-4.4); Hematocrit 40.7 % (42.0-52.0); Hemoglobin 12.4 g/dL (14.0-18.0); Immature Granulocyte Absolute 0.02 K/mm3 (0.00-0.031); Immature Granulocyte Percent A 0.3 % (0-0.5); Lymphocytes Absolute Auto 1.46 K/mm3 (0.9-3.2); Lymphocytes Percent Auto 24.7 % (18.3-44.2); Mean Corpuscular HGB Conc 30.5 g/dl (32-36); Mean Corpuscular Hemoglobin 24.9 pg (26-34); Mean Corpuscular Volume 81.9 fl (80-100); Mean Platelet Volume 10.8 fl (7.4-10.4); Monocytes Absolute Auto 0.6 K/mm3 (0.1-0.6); Monocytes Percent Auto 9.3 % (2.6-8.5); Neutrophils Absolute Auto 3.6 K/mm3 (1.3-6.7); Neutrophils Percent Auto 60.6 % (45.5-73.1); Platelet Count Result 215 k/mm3 (150-375); Red Blood Count 4.97 M/mm3 (4.6-6.20); Red Cell Distribution Width 16.9 % (11.5-14.5); White Blood Count 5.9 K/mm3 (4.5-10.0)
[2024-01-26 13:21] LABS: Anion Gap 4 mmol/L (8-16); Blood Urea Nitrogen 19 mg/dL (9-20); Calcium 9.5 mg/dL (8.4-10.2); Carbon Dioxide 29 mmol/L (22-30); Chloride 104 mmol/L (98-107); Estimated Glomerular Filt Rate > 60; Glucose 145 mg/dL (65-110); Sodium 137 mmol/L (137-145)
[2024-01-26 15:04] LABS: MRSA (PCR) NOT DETECTED (NOT DETECTE)
== END 2024-01-26 11:51 | disposition home or self-care (01) ==
LOC: ANHSURGERY 11:53
PROVIDERS: Anesthesiology; PCP Family Medicine Adolescent Medicine; Visit Provider Orthopaedic Surgery
DX: Z01.818 Encounter for other preprocedural examination (principal); R93.1 Abnormal findings on diagnostic imaging of heart and coronary circulation; I10 Essential (primary) hypertension; Z79.899 Other long term (current) drug therapy; M12.812 Other specific arthropathies, not elsewhere classified, left shoulder
CPT/HCPCS: 36415; 80048; 85025; 87641; 93005

== ENCOUNTER 2024-02-14 01:32 | Day surgery (SDC) | payer OTHER, SELFPAY ==
--- NOTE | 2024-01-26 11:39 | PC.NURSE ---
PRE-OP INSTRUCTIONS, PLEASE READ CAREFULLY Report to the Outpatient Waiting Room, entrance under the green pavilion located off [facility], at time _1000_ on date _02/14/24_. Planned Procedure Time: _1200_. PACK A SMALL OVERNIGHT BAG AND LEAVE IN THE CAR Time changes happen often and if your time is changed the preop area will call you the afternoon before. - You and your visitor will be asked to self-screen and do not enter if you have any COVID symptoms. - A mask is optional within the hospital at this time. -VISITING HOURS 8AM-8PM Patients may have clear liquids (water, carbonated beverages, clear teas, apple juice) until 3 hours prior to surgery with a maximum of 20 ounces. - No food from midnight until time of surgery Take the following medications with a SIP of water the morning of surgery: _TYLENOL_ DO NOT STOP ANY OF YOUR OTHER PRESCRIPTION MEDICATIONS PRIOR TO SURGERY ?EXCEPT THE FOLLOWING Medications to discontinue per DR. GUEVARA - _MELOXICAM 7 DAYS PRIOR TO SURGERY, Date to take last dose 02/06/24_ CALL DR. GUEVARA'S OFFICE REGARDING ASPIRIN Medications to discontinue per ANESTHESIA - _MULTIVITAMIN/SUPPLEMENTS 3 DAYS PRIOR TO SURGERY, Date to take last dose 02/10/24_ Please no make-up, nail panamanian, hairspray, perfume, deodorant, or body powder the day of surgery. No jewelry (including any body piercings) or valuables the day of surgery, leave them at home. Please take a shower or bath the night before, or the morning of, surgery with an antibacterial soap. Wear comfortable, loose fitting clothing. - Jewelry must be removed prior to entering the operating room. Rings and piercings that are not removed may be cut off. - The hospital will not accept responsibility for valuables. - Please leave all valuables, including medications, at home the day of surgery. If you are going home after surgery, a licensed driver salesman must drive you home. - NO public transportation without another adult if you receive anesthesia. - We recommend that an adult stay with you for 24 hours following discharge. - We also recommend that you do not drive, make important decision, drink alcoholic beverages, or take any drugs that were not prescribed by your health care provider for at least 24 hours after your discharge time. Follow any additional instructions given to you from your surgeon. If you or anyone in your household have experienced Covid symptoms in the past week, please notify your surgeon or the nurse liaison at the phone number below for possible testing. Instructions given to _PATIENT_and asked if any additional questions and then verbalized understanding. Patient advised to call surgeon office or pre surgery nurse liaison [phone] if any additional questions.
[2024-01-26 12:10] VITALS: BP 136/76; PULSE 70; RESP 20; TEMP 36.9; O2SAT 99; BMI 39.9
[2024-02-14] VITALS (13 sets, daily range): BP systolic 131–156; BP diastolic 69–88; PULSE 70–87; RESP 14–18; TEMP 36.2–36.7; O2SAT 96–100
--- NOTE | ~2024-02-14 | XR_ITS ---
EXAM: XR shoulder LT min 2V DATE: 02/14/2024 15:19 HISTORY: LT REVERSE TOTAL SHOULDER . COMPARISON: 04/22/2023. FINDINGS: Decreased mineralization. Status post reverse left shoulder arthroplasty. Gas projects ove r the shoulder joint. Moderate degenerative change at the AC joint. No unexpected radiopaque foreign body IMPRESSION: Expected postsurgical changes, with no radiographic evidence of procedure or hardware rel ated complication. Reviewed, dictated and finalized at location K. IMPRESSION: Expected postsurgical changes, with no radiographic evidence of pro cedure or hardware related complication.
[2024-02-14] MEDS: LACTATED RINGERS 1,000 ML 30 ML IV CONT ×2 (11:15→14:39)
[2024-02-14] MEDS: TRANEXAMIC ACID 1,000MG/ISO100 1,000 MG/100 ML BAG 200 MG IVPB (11:15)
[2024-02-14] MEDS: ACETAMINOPHEN 500 MG TABLET 1000 MG PO ×2 (11:15→17:01)
--- NOTE | 2024-02-14 11:35 | WPDANESEPPF ---
Anes - Initial Pre Proc Eval Procedure: Operation Date: 02/14/24 12:00 Proposed Procedures p Left Reverse Total Shoulder Arthroplasty - Anurag Sosa MD Date/Time: 02/14/24 11:35 Surgeon: Anurag Sosa MD Pre Op Diagnosis: left rotator cuff arthropathy Patient Data Age: 73 Gender: M Height: 1.75 m Weight: 120.1 kg Last Vital Signs Temp 36.3 C L 02/14/24 11:15 Pulse 70 02/14/24 11:15 Resp 14 02/14/24 11:15 BP 154/78 H 02/14/24 11:15 Pulse Ox 100 02/14/24 11:15 O2 Del Method Room Air 02/14/24 11:15 Allergies Allergy/AdvReac Type Severity Reaction Status Date / Time No Known Allergies Allergy Unknown Verified 02/14/24 11:24 Home Medications Medication Instructions Recorded Confirmed Type meloxicam 15 mg tablet 15 mg PO PRN PRN ARTHRITIS 09/16/20 02/14/24 History mometasone 50 mcg/actuation nasal 50 mcg intranasal QAM 09/16/20 01/26/24 History spray azelastine 205.5 mcg (0.15 %) 2 spray intranasal PRN PRN 09/30/21 01/26/24 History nasal spray Congestion cyanocobalamin (vitamin B-12) 5,000 mcg PO DAILY 09/30/21 01/26/24 History 1,000 mcg tablet (Vitamin B-12) latanoprost 0.005 % eye drops 1 drp EACH EYE HS 09/30/21 01/26/24 History multivitamin 1 tablet PO DAILY 09/30/21 02/14/24 History omega-3 fatty acids-vitamin E 1 cap PO DAILY 09/30/21 02/14/24 History 1,000 mg capsule aspirin 81 mg tablet,delayed 81 mg PO DAILY 01/19/22 02/14/24 History release (Adult Aspirin Regimen) lutein 6 mg capsule 6 mg PO DAILY 01/19/22 01/26/24 History coQ10 (ubiquinol) 100 mg capsule 200 mg PO DAILY 04/06/22 01/26/24 History glucosamine sulf dipot 1 cap PO BID 04/20/22 01/26/24 History chlr,msm,chond 550 mg-C 30 mg-mari 1 mg capsule (Glucosamine Chondroitin) pilocarpine HCl 5 mg tablet 5 mg PO QID 04/20/22 01/26/24 History calcium 500 mg tablet 600 mg PO DAILY 09/01/22 01/26/24 History pantoprazole 40 mg tablet,delayed See Rx Instructions .Route 01/29/23 01/26/24 Rx release .COMPLEX #90 tabs famotidine 40 mg tablet See Rx Instructions .Route 06/06/23 01/26/24 Rx .COMPLEX #90 tabs sildenafil 100 mg tablet See Rx Instructions .Route 06/18/23 01/26/24 Rx .COMPLEX #6 tabs atorvastatin 20 mg tablet 20 mg PO DAILY #90 tabs 08/12/23 01/26/24 Rx losartan 100 1 tablet PO QAM #100 tabs 09/12/23 01/26/24 Rx mg-hydrochlorothiazide 25 mg tablet peg 400-propylene glycol (PF) 0.4 1 drp EACH EYE DAILY 09/15/23 01/26/24 History %-0.3 % eye drops in a dropperette (Systane (PF)) cholecalciferol (vitamin D3) 50 100 mcg PO DAILY 09/16/23 01/26/24 History mcg (2,000 unit) capsule vitamin B complex 1 cap PO DAILY 09/16/23 02/14/24 History testosterone cypionate 200 mg/mL 200 mg IM .once every 3 weeks #4 mL 10/07/23 01/26/24 Rx intramuscular oil (Depo-Testosterone) acetaminophen 500 mg tablet 1,000 mg PO QID PRN Pain 01/26/24 01/26/24 History Laboratory Tests 02/14/24 11:01 Blood Type Pending Antibody Screen Pending Patient hx anesthesia problems: none Family hx anesthesia problems: none Results Review: All pre-operative results and documents have been reviewed as part of the pre-operative evaluation. [facility] Past Medical History Medical History Carpal tunnel syndrome on both sides Chronic GERD Fungal infection History of colon polyps HTN (hypertension) Knee cartilage, torn, right Male erectile dysfunction, unspecified Normal colonoscopy 09/17 Repeat 09/27 Obesity Occult blood in stools ANNIE on CPAP Osteoarthritis of left hip 12/20 mild Other ill-defined heart diseases Diastolic dysfunction Echo 11/18 Presbycusis, bilateral Sacrocoxalgia of right side of sacrum Testicular hypofunction Type 2 diabetes mellitus without complications Surgical History Surgical History H/O shoulder surgery History of arthr
--- NOTE | 2024-02-14 11:36 | WPDHPUPDATE1 ---
History and Physical Update Update Date/Time: 02/14/24 11:36 History and Physical has been reviewed, including an updated exam of the patient. There are NO changes in the patient's condition. Risks, benefits, and alternatives have been discussed and questions answered. Patient agrees to proceed with procedure.
[2024-02-14] MEDS: ceFAZolin 3 GM/D5W 100 ML 100 ML IVPB (11:56)
[2024-02-14] MEDS: SODIUM CHLORIDE 0.9% IV 37.7 ML, MORPHINE SULFATE INJ (*CRX) 2 MG, ROPivacaine HCL 1% 2... INFILTRATE (12:17)
[2024-02-14] MEDS: VANCOMYCIN HCL 1,000 MG VIAL 1000 MG TOPICAL (12:19)
--- NOTE | 2024-02-14 15:08 | W.PM.PROC2 ---
Procedure Note - Detailed Date of Procedure 02/14/24 Pre-op Diagnosis Left rotator cuff arthropathy Post-op Diagnosis Same Procedure Performed Reverse total shoulder arthroplasty, left Surgeon Anurag Sosa MD Toll Service Observer Yojana Murphy PA-C Anesthesia General and Regional (Interscalene block.) Indications Advanced rotator cuff arthropathy grade 4. Moderate superior - posterior glenoid erosion. Extensive scarring from 2 previous open rotator cuff repairs. Findings The subscapularis was completely scarred. There was no supra or infraspinatus left. Some teres minor. Bone quality was good. Minimal glenoid reaming with the 15 degree augment, consistent with preoperative 3D planning. Description of Procedure The patient was given an interscalene block in the preoperative area. Preoperative antibiotics were given. The patient was transferred to the operating room and a general anesthetic was administered. The beach chair position was used at 45 degrees. All bony prominences were padded. The head was carefully stabilized on the [facility] heading saw operator. A sterile prep and drape was performed in the usual manner with ChloraPrep. A longitudinal incision was created at the anterior shoulder just lateral to the deltopectoral interval. Hydrogen peroxide was placed on the incision and then rinsed after one minute. Careful dissection was performed to expose the interval and protect the cephalic vein. The vein was retracted medially. The upper border of the pectoralis was released. Anterior circumflex vessel branches were suture ligated. The biceps was previously tenodesed. The subscapularis was absent. There was some bursal tissue that was excised and released off of the anterior inferior humeral neck. The inferior capsule was released, exposing the humeral head. Extensive osteophytes were removed. Care was taken to stay on bone to protect the axillary nerve. The anatomic head cut was taken with the oscillating saw. The guide pin was placed, central drilling performed, and the broach trial inserted. The neck anteversion and inclination were carefully assessed. The cut protector was placed, and attention was turned to the glenoid. Retractors were placed. Releases were carried out for exposure. The inferior capsule and long head of triceps released, and the superior and middle glenohumeral ligaments released as well. The tissue was very pathologic in appearance. The labrum was ossified, and labral tissue was resected as needed. The shoulder was quite tight and the posterior capsule was released and partially excised. The sizing template was used to assess the baseplate position just inferior to the center of the glenoid. A guide pin was placed. Minimal reaming was used to accomplish a flat surface without violating the subchondral bone. Version was corrected according to preoperative templating, using the 15 degree guide. The boss was drilled, and the real component was impacted into position. The central compression screw was placed. Supplemental locking screws were placed superiorly, and inferiorly. The glenosphere was impacted into the taper. The proximal humerus was reamed for the inset component. The humeral components were trialed. The real humeral stem, tray, and insert were impacted into position. The shoulder was copiously irrigated periodically with pulsatile lavage. The shoulder was reduced and stability confirmed. 1 gram of Vancomycin powder was placed in the joint. The biceps tenodesis was incorporated with the pectoralis tendon repair. A deep drain was placed due to the extensive dissection and scar tissue. The deltopectoral space was reapproximated with number 1 Vicryl. The remaining tissue was closed with 0 Quill and 2-0 Quill running suture and steri-strips. A sterile silver occlusive dressing and shoulder immobilizer were placed. The patient was transferred to the recovery room. Physician farm assistant, Yojana Murphy PA-C, required for surgery; in
--- NOTE | 2024-02-14 15:55 | ADMGEN ---
This patient, Pierce Phillip, was admitted to 3 [facility] Surg Room 309-01. Patient/family oriented to hospital policies and general routines including ID bracelet, bed and alarms, visiting hours, pain management, procedures, bathroom and other care routines, personal items, smoking policy, room service/diet, and visiting hours. Information on how to activate the Rapid Response Team has been discussed. Patient/Family are encouraged to report perceived risks to care and to ask questions if they do not understand what they are told or what they should do.
[2024-02-14] MEDS: SODIUM CHLORIDE 0.9% IV 1,000 ML 125 ML IV CONT (16:42)
[2024-02-14] MEDS: SENNA/DOCUSATE SODIUM TABLET 2 TAB PO (16:53)
[2024-02-14] MEDS: ASPIRIN 81 MG ENTERIC TABLET PO (16:54)
[2024-02-14] MEDS: MELOXICAM 7.5 MG TABLET PO (16:54)
[2024-02-14] MEDS: LATANOPROST 0.005% OP SOLN 2.5 ML BTL 1 DROP EACH EYE (20:49)
[2024-02-14] MEDS: FAMOTIDINE 20 MG TABLET PO (20:49)
[2024-02-14] MEDS: ceFAZolin 2 GM/D5W 50 ML 2 GM/50 ML BAG IVPB (22:06)
--- NOTE | 2024-02-14 22:21 | PC.NURSE ---
Pt refused Naomi 5mg and 10mg due to history of nausea and vomiting. Pt also refused tramadol with no rationale. Pt was educated keeping pain under control, pt states he understands and will wait for Tylenol Q6H. Continued monitoring and cryocuff maintained.
[2024-02-14] MEDS: WATER FOR IRRIGATION, STERILE 1,000 ML BOTTLE 1000 ML (22:24)
[2024-02-15 03:41] VITALS: BP 147/79; PULSE 80; RESP 18; TEMP 36.7; O2SAT 98
[2024-02-15] MEDS: ceFAZolin 2 GM/D5W 50 ML 2 GM/50 ML BAG IVPB ×2 (04:01→11:02)
[2024-02-15] MEDS: ACETAMINOPHEN 500 MG TABLET 1000 MG PO ×3 (05:21→11:07)
--- NOTE | 2024-02-15 06:52 | PC.NURSE ---
Pt tolerated PO fluids and food well without difficulties. Pt ambulated to chair and sat in chair for a few hours due to not being able to sleep in bed. Pt denies any discomfort/unbearable pain. Pt actively participating in self care/needs. Continued monitoring by medical staff with cryocuff maintained and left arm immobilizer maintained.
[2024-02-15 07:00] LABS: Basophils Absolute Auto 0.1 K/mm3 (0.0-0.1); Basophils Percent Auto 0.4 % (0.2-1.2); Eosinophils Percent Auto 0.2 % (0-4.4); Hematocrit 39.6 % (42.0-52.0); Hemoglobin 12.1 g/dL (14.0-18.0); Immature Granulocyte Absolute 0.07 K/mm3 (0.00-0.031); Immature Granulocyte Percent A 0.6 % (0-0.5); Lymphocytes Absolute Auto 1.26 K/mm3 (0.9-3.2); Lymphocytes Percent Auto 10.1 % (18.3-44.2); Mean Corpuscular HGB Conc 30.6 g/dl (32-36); Mean Corpuscular Hemoglobin 25.3 pg (26-34); Mean Corpuscular Volume 82.7 fl (80-100); Mean Platelet Volume 10.4 fl (7.4-10.4); Monocytes Absolute Auto 1.3 K/mm3 (0.1-0.6); Monocytes Percent Auto 10.3 % (2.6-8.5); Neutrophils Absolute Auto 9.7 K/mm3 (1.3-6.7); Neutrophils Percent Auto 78.4 % (45.5-73.1); Platelet Count Result 220 k/mm3 (150-375); Red Blood Count 4.79 M/mm3 (4.6-6.20); Red Cell Distribution Width 17.5 % (11.5-14.5); White Blood Count 12.4 K/mm3 (4.5-10.0)
[2024-02-15 07:04] LABS: Anion Gap 3 mmol/L (8-16); Blood Urea Nitrogen 19 mg/dL (9-20); Calcium 8.8 mg/dL (8.4-10.2); Carbon Dioxide 31 mmol/L (22-30); Chloride 103 mmol/L (98-107); Estimated CRCL calculation 82 ml/min; Estimated Glomerular Filt Rate > 60; Glucose 155 mg/dL (65-110); Sodium 137 mmol/L (137-145)
[2024-02-15] MEDS: LOSARTAN POTASSIUM 100 MG TABLET PO (08:51)
[2024-02-15] MEDS: PANTOPRAZOLE 40 MG TABLET PO (08:51)
[2024-02-15] MEDS: ASPIRIN 81 MG ENTERIC TABLET PO (08:51)
[2024-02-15] MEDS: hydroCHLOROthiazide 25 MG TABLET PO (08:52)
[2024-02-15] MEDS: polyethylene glycoL 3350 17 GM POWD.PACK PO (08:52)
[2024-02-15] MEDS: MELOXICAM 7.5 MG TABLET PO (08:52)
[2024-02-15] MEDS: ATORVASTATIN 20 MG TABLET PO (08:52)
[2024-02-15 09:24] VITALS: BP 133/76; PULSE 82; RESP 14; TEMP 36.3; O2SAT 98
--- NOTE | 2024-02-15 09:53 | PM.DS ---
DS: Admitting Diagnosis Discharge Date 02/15/24 Admitting Diagnosis Glenohumeral joint arthritis and massive rotator cuff tear. DS: Discharge Diagnosis Discharge Diagnosis (1) Status post reverse total arthroplasty of left shoulder: Code(s): Z96.612 - Presence of left artificial shoulder joint Status: Acute Assessment and Plan: Postop day 1: Left reverse total shoulder arthroplasty. Patient tolerated procedure well. No complications. Pain manageable with pain medication. No numbness or tingling. We had a lengthy discussion regarding postoperative wound care, limitations, expectations, and exercises. Patient shows good understanding. He has had initial physical therapy and is tolerating it well. DVT prophylaxis: 81 mg baby aspirin b.i.d. for 14 days. Pain medication: Percocet. Antibiotic: Doxycycline. Patient has followup appointment with Dr. Sosa in 3 weeks. DS: Summary Hospital Course Hospital Course: Tolerated procedure well. Has had initial PT/OT. Status at Discharge Functional status at discharge: independent ambulation Overall status at discharge: patient is progressing back to baseline Time Spent with Patient Time attestation: Total time spent providing and/or coordinating discharge services: Exam Narrative: Overweight 73 y/o male. Resting comfortably in chair. Wearing sling. Dressing dry and intact with no drainage. Mild swelling. No ecchymosis. No erythema. No hematoma. Range of motion limited due to pain. Deltoid fires. Calf nontender. Neurologic status intact. No varicosities. Distal pulses palpable. DS: Data Data Completed and Pending Labs on day of discharge: Labs from last 24 hours 02/15/24 02/14/24 06:36 11:01 WBC 12.4 H RBC 4.79 Hgb 12.1 L Hct 39.6 L MCV 82.7 MCH 25.3 L MCHC 30.6 L RDW 17.5 H Plt Count 220 MPV 10.4 Immature Gran % (Auto) 0.6 H Neut % (Auto) 78.4 H Lymph % (Auto) 10.1 L Tompkins % (Auto) 10.3 H Eos % (Auto) 0.2 Baso % (Auto) 0.4 Lymph # (Auto) 1.26 Tompkins # (Auto) 1.3 H Eos # (Auto) 0.0 Baso # (Auto) 0.1 Abs Immat Gran (auto) 0.07 H Absolute Neuts (auto) 9.7 H Absolute Nucleated RBC 0.000 Nucleated RBC % 0.0 Sodium 137 Potassium 4.0 Chloride 103 Carbon Dioxide 31 H Anion Gap 3 L BUN 19 Creatinine 0.90 Estim Creat Clear Calc 82 Estimated GFR > 60 Glucose 155 H Calcium 8.8 Blood Type A Positive Antibody Screen Negative Discharge Plan Discharge Patient Disposition: Home, Self-Care Discharge Instructions: See cecille keating Patient Instructions: Aspirin (By mouth), Joint Replacement Surgery (DC), Shoulder Arthroplasty (DC) Stand Alone Forms: General Discharge Instructions Follow-up/Referrals: Yojana Murphy PA [Physician Tape Stringer] - Discharge Medications: New aspirin 81 mg tablet,delayed release (DR/EC) 81 mg PO BID 14 Days Qty: 28 0RF doxycycline hyclate 100 mg capsule 100 mg PO BID 21 Days Qty: 42 0RF oxycodone-acetaminophen 5-325 mg tablet 1 - 2 tablet PO Q4-6H MDD 6 PRN (Reason: pain) Qty: 30 0RF Continued vitamin B complex Capsule 1 cap PO DAILY cholecalciferol (vitamin D3) 50 mcg (2,000 unit) Capsule 100 mcg PO DAILY acetaminophen 500 mg Tablet 1,000 mg PO QID PRN (Reason: Pain) meloxicam 15 mg tablet 15 mg PO PRN PRN (Reason: ARTHRITIS) Hold Instructions: Resume on 05/28/22. mometasone 50 mcg/actuation spray,non-aerosol 50 mcg INTRANASAL QAM pilocarpine HCl 5 mg tablet 5 mg PO QID multivitamin Tablet 1 tablet PO DAILY latanoprost 0.005 % drops 1 drp EACH EYE HS cyanocobalamin (vitamin B-12) [Vitamin B-12] 1,000 mcg Tablet 5,000 mcg PO DAILY omega-3 fatty acids-vitamin E 1,000 mg Capsule 1 cap PO DAILY azelastine 205.5 mcg (0.15 %) [place],Non-Aerosol 2 spray INTRANASAL PRN PRN (Reason: Conge
== END 2024-02-15 12:15 | disposition home or self-care (01) ==
LOC: ANHSURGERY 14:56 → ANH3MEDSUR 15:50
PROVIDERS: Physician Assistant Surgical; PCP Family Medicine Adolescent Medicine; Visit Provider Orthopaedic Surgery
PROC: (CPT 23472; principal; 2024-02-14 12:00)
DX: M12.812 Other specific arthropathies, not elsewhere classified, left shoulder (principal); G47.33 Obstructive sleep apnea (adult) (pediatric); E11.9 Type 2 diabetes mellitus without complications; E29.1 Testicular hypofunction; I11.9 Hypertensive heart disease without heart failure; Z79.82 Long term (current) use of aspirin; Z79.890 Hormone replacement therapy; E66.9 Obesity, unspecified; Z68.39 Body mass index [BMI] 39.0-39.9, adult
CPT/HCPCS: 23472; 36415; 73030; 80048; 85025; 86850; 86900; 86901; 87641; 93005; 97110; 97161; 97165; 97535; A4565; A9270; C1776; J0171; J0690; J1100; J1170; J1885; J2250; J2270; J2405; J2704; J2795; J3010; J3370; J7030; J7120

== ENCOUNTER 2024-05-22 17:56 | Emergency (ER) | payer OTHER, SELFPAY ==
[2024-05-22 18:04] VITALS: BP 131/83; PULSE 71; RESP 19; TEMP 36.6; O2SAT 100
--- NOTE | 2024-05-22 18:13 | ED.WOUNDLAC ---
HPI - Wound/Laceration General Chief Complaint: Wound/Laceration Stated Complaint: EYEBROW LACERATION Time Seen by Provider: 05/22/24 18:15 Source: patient, RN notes reviewed and old records reviewed Mode of arrival: ambulatory Limitations: no limitations History of Present Illness HPI narrative: Patient presents with 1 cm laceration to right eyebrow. Injury was sustained approximately 4 hours ago. Patient tripped and fell on driveway. He denies any loss of consciousness. He denies other injury and trauma. There is no active bleeding at this time Related Data Home Medications Medication Instructions Recorded Confirmed mometasone 50 mcg/actuation nasal 50 mcg intranasal QAM 09/16/20 05/22/24 spray azelastine 205.5 mcg (0.15 %) 2 spray intranasal PRN PRN 09/30/21 05/22/24 nasal spray Congestion cyanocobalamin (vitamin B-12) 5,000 mcg PO DAILY 09/30/21 05/22/24 1,000 mcg tablet (Vitamin B-12) latanoprost 0.005 % eye drops 1 drp EACH EYE HS 09/30/21 05/22/24 multivitamin 1 tablet PO DAILY 09/30/21 05/22/24 omega-3 fatty acids-vitamin E 1 cap PO DAILY 09/30/21 05/22/24 1,000 mg capsule aspirin 81 mg tablet,delayed 81 mg PO DAILY 01/19/22 05/22/24 release (Adult Aspirin Regimen) lutein 6 mg capsule 6 mg PO DAILY 01/19/22 05/22/24 coQ10 (ubiquinol) 100 mg capsule 200 mg PO DAILY 04/06/22 05/22/24 glucosamine sulf dipot 1 cap PO BID 04/20/22 05/22/24 chlr,msm,chond 550 mg-C 30 mg-mari 1 mg capsule (Glucosamine Chondroitin) pilocarpine HCl 5 mg tablet 5 mg PO QID 04/20/22 05/22/24 calcium 500 mg tablet 600 mg PO DAILY 09/01/22 05/22/24 peg 400-propylene glycol (PF) 0.4 1 drp EACH EYE DAILY 09/15/23 05/22/24 %-0.3 % eye drops in a dropperette (Systane (PF)) cholecalciferol (vitamin D3) 50 100 mcg PO DAILY 09/16/23 05/22/24 mcg (2,000 unit) capsule vitamin B complex 1 cap PO DAILY 09/16/23 05/22/24 Allergies Allergy/AdvReac Type Severity Reaction Status Date / Time No Known Allergies Allergy Unknown Verified 05/22/24 18:02 Review of Systems Review of Systems: All systems reviewed & are unremarkable except as noted in HPI and below Constitutional: Constitutional: Reports no additional constitutional complaints ENT: Reports system reviewed and no additional complaints, except as documented Cardiovascular: Cardiovascular: Reports no additional cardiovascular complaints Respiratory: Respiratory: Reports no additional respiratory complaints Gastrointestinal: Gastrointestinal: Reports no additional gastrointestinal complaints [facility] Past Medical History Medical History Carpal tunnel syndrome on both sides Chronic GERD Fungal infection History of colon polyps HTN (hypertension) Knee cartilage, torn, right Male erectile dysfunction, unspecified Normal colonoscopy 09/17 Repeat 09/27 Obesity Occult blood in stools ANNIE on CPAP Osteoarthritis of left hip 12/20 mild Osteoarthritis of shoulders, bilateral Other ill-defined heart diseases Diastolic dysfunction Echo 11/18 Presbycusis, bilateral Sacrocoxalgia of right side of sacrum Testicular hypofunction Type 2 diabetes mellitus without complications Surgical History Surgical History H/O shoulder surgery History of arthroplasty of right shoulder (09/21/23) 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) 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P total knee replacement right Family History Family History Father Acute myocardial infarction Asthma Cerebrovascular accident Heart disease Hypertension Mother Heart disease Hypertension Sibling Hypertension Other Colon polyp Social History Social History Smoking status: Never smoker Second hand tobacco
[2024-05-22] MEDS: TETANUS,DIPHTHERIA,AC PERTUSSIS ADULT (0.5 ML) BOOSTRIX IM (19:10)
== END 2024-05-22 19:13 | disposition home or self-care (01) ==
PROVIDERS: Emergency Provider Nurse Practitioner Family; PCP Family Medicine Adolescent Medicine
DX: S01.111A Laceration without foreign body of right eyelid and periocular area, initial encounter (principal); W01.0XXA Fall on same level from slipping, tripping and stumbling without subsequent striking against object, initial encounter; Z23 Encounter for immunization; K21.9 Gastro-esophageal reflux disease without esophagitis; I10 Essential (primary) hypertension; E66.9 Obesity, unspecified; G47.33 Obstructive sleep apnea (adult) (pediatric); M16.12 Unilateral primary osteoarthritis, left hip; M19.012 Primary osteoarthritis, left shoulder; M19.011 Primary osteoarthritis, right shoulder; E11.9 Type 2 diabetes mellitus without complications; Z96.653 Presence of artificial knee joint, bilateral; Z79.82 Long term (current) use of aspirin
CPT/HCPCS: 12011; 90471; 90715; 99212; G0463

== ENCOUNTER 2024-09-19 14:36 | Outpatient (CLI) | payer OTHER, SELFPAY ==
--- NOTE | ~2024-09-19 | XR_ITS ---
XR shoulder LT min 2V 09/19/2024 15:04 Indication: Left shoulder arthroplasty Procedure: 4 views left shoulder Comparison: Comparison to multiple prior studies sequentially, with oldest reviewed study dated 2022. Findings: There is a left shoulder arthroplasty which is well seated. There is osteoarthritis of the acromioclavicular joint. No acute fracture or traumatic malalignment. There are loose bodies adjacent to the shoulder joint. Impression: 1: No acute fracture. Reviewed, dictated and finalized at location B. Impression: 1: No acute fracture.
--- NOTE | ~2024-09-19 | XR_ITS ---
XR shoulder RT min 2V 09/19/2024 15:04 Indication: Right shoulder pain Procedure: 4 views right shoulder Comparison: Comparison to multiple prior studies sequentially, with oldest reviewed study dated 04/22. Findings: There is a right shoulder arthroplasty. Prosthesis well seated. No fracture or traumatic ma lalignment. There is osteoarthritis of the acromioclavicular joint with adjacent loose bodies. Impression: 1: No acute fracture. Reviewed, dictated and finalized at location B. Impression: 1: No acute fracture.
== END 2024-09-19 14:37 | disposition home or self-care (01) ==
LOC: MICIMG 14:37
PROVIDERS: PCP Family Medicine Adolescent Medicine; Visit Provider Orthopaedic Surgery
DX: Z96.611 Presence of right artificial shoulder joint (principal); Z96.612 Presence of left artificial shoulder joint
CPT/HCPCS: 73030

== ENCOUNTER 2025-03-22 02:22 | Day surgery (SDC) | payer OTHER, SELFPAY ==
[2025-03-21 10:48] VITALS: BMI 39.4
[2025-03-22] VITALS (15 sets, daily range): BP systolic 122–160; BP diastolic 68–90; PULSE 49–70; RESP 14–20; TEMP 36.4; O2SAT 90–97; BMI 36.6
--- OUTSIDE RECORDS SUMMARY | 2025-03-22 02:25 | XMS_ITS | Clinical Summary ---
Author Organization [facility] [place] [address] Address [address] [place] [address] Care Team Providers Care Auctioneer Automobile Name Role Phone Jhony Bryan MD Primary Care Prov ider Allergies No known active allergies Medications losartan-hydro chlorothiazide (HYZAAR) 100-25 mg per tablet 09/25/20 21 Active azelastine (ASTELIN) 137 mcg (0.1 %) nasal spray Administer 2 sprays into affected nostril(s) 2 (two) times a day Active mometasone (NASONEX) 50 mcg/actuation nasal spray 07/30/[address] (PROTONIX) 40 mg EC tablet 07/22/20 21 Active pilocarpine (SALAGEN) 5 mg tablet 08/01/20 21 Active famotidine (PEPCID) 40 mg tablet 09/25/20 21 Active atorvastatin (LIPITOR) 20 mg tablet 08/28/20 21 Active cyanocobalamin (Vitamin B-12) 2,000 mcg tablet Active cholecalcifero l, vitamin D3, (D3-2000 ORAL) Take by mouth A ctive aspirin (Adult Low Dose Aspirin) 81 mg enteric coated tablet Take 1 tablet (81 mg total) by mouth daily 10/15/20 21 Active latanoprost (XALATAN) 0.005 % ophthalmic solution INSTILL ONE DROP INTO BOTH EYES EVERY NIGHT AT BEDTIME 08/14/20 22 Active sildenafiL (VIAGRA) 100 mg tablet TAKE 1/2 TO 1 TABLET BY MOUTH DAILY NEEDED 10/15/20 Active testosterone cypionate (DEPO-TESTOTER ONE) 200 mg/mL injection INJECT 200 MG INTRAMUSCULARLY ONCE EVERY 3 WEEKS 10/19/20 Active coenzyme Q10 100 mg capsule Take 1 capsule (100 mg total) by mouth daily Active osklmfta12-dxu s-Vowfmkiy-gtw al 27 mg iron-1.13 mg-581.92 mg capsule Take by mouth Active omega-3 fatty acids-fish oil 300-1,000 mg capsule Take 2 capsules (2 g total) by mouth daily Active metFORMIN XR (GLUCOPHAGE XR) 500 mg 24 hr tablet Take 2 tablets (1,000 mg total) by mouth daily 12/08/19 Active calcium carbonate-meena min D3 1500 mg (600 mg elemental) -200 units per tablet Take 1 tablet by mouth daily Active glucosamine HCl 1,500 mg tablet Take by mouth Active lutein-zeaxant hin 25-5 mg capsule Take by mouth Active vhxug-q-auubdn osidase 600 unit capsule Take by mouth Act justino ytdbo-P-zmqpmz osidase (BEANO ORAL) Take by mouth Active Active Problems Problem Noted Date Diagnosed Date Chest pressure 02/05/2025 Coronary artery disease invo lving red devil coronary artery of red devil heart without angina pectoris 10/26/2022 Abnormal stress test 10/15/2021 Primary hypertension 10/15/2021 Mixed hyperlipidemia 10/15/2021 ANNIE on CPAP 10/15/2021 Morbid obesity with BMI of 40.0-44.9, adult 09/29 Preoperative cardiovascular examination 10/15/20 Resolved Problems Problem Noted Date Diagnosed Date Resolved Date Dyslipidemia 10/15/2021 01/26/2022 Encounters Date Type Department Care Team Description 03/09/2025 Telephone [facility] [address] [place] [address] Aileen Limon MD 03/09/2025 Results Follow-Up [facility] Cardiology at [address] [place] [address] Aileen Limon MD 03/08/2025 8:15 AM CDT Ancillary Procedure [facility] Cardiology [address] [place] [address] Coronary artery disease involving red devil coronary artery of red devil heart without angina pectoris; Chest pressure 02/05/2025 11:15 AM CDT Office Visit [facility]iology [address] [place] [address] Aileen Limon MD Coronary artery disease involving red devil coronary artery of red devil heart without angina pectoris (Primary Dx); Atherosclerosis of red devil coronary artery without angina pectoris, unspecified whether red devil or transplanted heart; Mixed hyperlipidemia; Primary hypertension; Morbid obesity with BMI of 40.0-44.9, adult (HCC); ANNIE on CPAP; Chest pressure from Last 3 Months Surgical History Surgery Date Site/Laterality Comments CATARACT EXTRACTION HAND SURGERY ROTATOR CUFF REPAIR Medical History Medical History Date Comments Hypertension Overweight Diverticulitis Acid indigestion Arthritis Sleep apnea Family History Medical History Relation Name Comments Hypertension Brother Stroke Father Heart failure Mother Hypertension Sister 1 No Known Problems Sister 2 Relation Name Status Comments Brother Alive Father (Age 78) Mother (Age 86) Sister 1 Alive Sister 2 Alive Social History Tobacco Use Types Packs/Day Years Used Date Smoking Tobacco: Never Smokeless Tobacco: Never Tobacco Cessation:Counseling Given: Not Answered Sex and Gender Information Value Date Recorded Sex Assigned at Not on file 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 Gender Identity Not on file Sexual Orientation Not on file Obstetrics History Last Filed Vital Signs Vital Sign Reading Time Taken Comments Blood Pressure 132/76 02/05/2025 11:38 AM CDT Pulse 81 02/05/2025 11:38 AM CDT Temperature 36.7 C (98 F) 08/31/2022 8:09 AM CDT Respiratory Rate 12 08/31/2022 8:09 AM CDT Oxygen Saturation 97% 02/05/2025 11:38 AM CDT Inhaled Oxygen Concentration - - Weight 121.1 kg (267 lb) 02/05/2025 11:38 AM CDT Height 175.3 cm (5' 9 ) 02/05/2025 11:38 AM CDT Body Mass Index 39.43 02/05/2025 11:38 AM CDT Plan of Treatment Health Maintenance Due Date Last Done Comments Colon Cancer Screening-Colonoscopy 1950 Depression Screening 1950 Hepatitis C Screening 1950 Hepatitis B Screening 1968 Pneumococcal vaccine 65+ (1 of 1 - PCV) 2000 Well Visit 65+ 2015 Fall Risk Assessment 08/31/2023 08/31/2022 Covid-19 Vaccine ( season) 2024 10/02/2021, 02/01/2021, 01/09/2021 Influenza Vaccine (Season Ended) 2025 DTaP/Tdap/Td Vaccine (2 - Td or Tdap) 08/24/2027 Zoster Vaccine Completed 01/15/2020, 10/12/2019 Procedures Procedure Name Priority Date/Time Associated Diagnosis Comments NM MPI SPECT (REST AND/OR STRESS) MULTIPLE STUDIES Schedule Routine, Read Routine (OP Routine) 03/08/2025 9:38 AM CDT Coronary artery disease involving red devil coronary artery of red devil heart without angina pectoris Chest pressure POCT LIPID PANEL Routine 02/05/2025 10:3 5 AM CDT Atherosclerosis of red devil coronary artery without angina pectoris, unspecified whether red devil or transplanted heart Coronary artery disease involving red devil coronary artery of red devil heart without angina pectoris Mixed hyperlipidemia from Last 3 Months Results * NM MPI SPECT (Rest and/or Stress) Multiple Studies (03/08/2025 9:38 AM CDT) Anatomical Region Laterality Modality Body N/A Nuclear Medicine 03/08/2025 8:40 AM CDT Narrative 03/08/2025 2:26 PM CDT [facility] Cardiology [address] [facility] [address], [place] [address] [address] [facility] [address], [place] [address] P:[phone] P:[phone] MPI Imaging Report Patient Name: NATALIYA AVILES L : 1950 Study Date: 03/08/2025 8:40:42 AM Gender: M Tech: DANILO SINGHMT Location: [facility] Provider: AILEEN LIMON Height(Cm): 175.3 BSA: Weight(Kg): 121.1 BMI: 39.41 Order Provider: AILEEN LIMON PHYSICIAN: Referring Physician: Dr. Bryan. HCG Physician: Demetrius Limon M.D. Interpreting Physician: Nayan Gaffney M.D.,LalithaADominiqueCDominiqueCDominique Stress Supervision: Nayan Gaffney M.D.,F.A.CDominiqueC. PROCEDURES: Pharmacologic SPECT Report: Myocardial perfusion imaging with Tc99M Sestamibi SPECT at rest and stress post regadenoson (Lexiscan) infusion. INDICATIONS: Hypertension, Diabetes, Family Hx CAD, High Cholesterol, Palpitations, I25.10 Atherosclerotic heart disease of red devil coronary artery without angina pectoris, and R07.89 Other chest pain. FINDINGS: Procedural Findings: One day rest/stress was used. Tc99m Sestamibi injected IV at rest was 12.8 millicuries 37.4 millicuries of Tc99M Sestamibi injected IV during Lexiscan stress Lexiscan 0.4mg given IV over 10 seconds with low level exercise: 1.2 MPH Patient had no symptoms during stress test. Baseline heart rate was 72 BPM Maximum Heart Rate Achieved was: 118 BPM Baseline blood pressure was 142/82 mmHg Post Stress Blood Pressure was 148/80 mmHg Termination: Protocol complete. Resting ECG: Normal sinus rhythm minor ST abnormality. Post ECG: No diagnostic ST changes. Perfusion Findings: A TID of 1.13 was automatically calculated. defect 1: Size is medium. Severity is moderate to severe in intensity. Location of defect is in the basal inferior segment and mid inferior segment. Reversibility is not present, defect is fixed. Type of defect is infarction. LV Function: Left ventricular ejection fraction is 48 %. There is mild LV dysfunction with inferior akinesis. CONCLUSIONS: Normal sinus rhythm minor ST abnormality. No diagnostic ST changes. Left ventricular ejection fraction is 48 %. There is mild LV dysfunction with inferior akinesis. Size is medium. Severity is moderate to severe in intensity. Location of defect is in the basal inferior segment and mid inferior segment. Reversibility is not present, defect is fixed. Type of defect is infarction. Electronically Signed By: Nayan Gaffney MD, [facility] 03/08/2025 1:41:34 PM CDT Electronically Signed By: Nayan Gaffney MD, [facility] 03/08/2025 1:41:34 PM CDT Procedure Note Nayan Gaffney MD - 03/08/2025 [facility]iology [address] [facility] [address], [place] [address] [address] [facility] [address], [place] [address] P:[phone] P:[phone] MPI Imaging Report Patient Name: NATALIYA AVILES L : 1950 Study Date: 03/08/2025 8:40:42 AM Gender: M Tech: [place] Location: [facility] Provider: AILEEN LIMON Height(Cm): 175.3 BSA: Weight(Kg): 121.1 BMI: 39.41 Order Provider: AILEEN LIMON PHYSICIAN: Referring Physician: Dr. Bryan. HCG Physician: Demetrius Limon M.D. Interpreting Physician: Nayan Gaffney M.D.,F.A.C.C. Stress Supervision: Nayan Gaffney M.D.,F.A.C.C. PROCEDURES: Pharmacologic SPECT Report: Myocardial perfusion imaging with Tc99M Sestamibi SPECT at rest and stresspost regadenoson (Lexiscan) infusion. INDICATIONS: Hypertension, Diabetes, Family Hx CAD, High Cholesterol, Palpitations,I25.10 Atherosclerotic heart disease of red devil coronary artery without anginapectoris, and R07.89 Other chest pain. FINDINGS: Procedural Findings: One day rest/stress was used. Tc99m Sestamibi injected IV at rest was 12.8 millicuries 37.4 millicuries of Tc99M Sestamibi injected IV during Lexiscan stress Lexiscan 0.4mg given IV over 10 seconds with low level exercise: 1.2MPH Patient had no symptoms during stress test. Baseline heart rate was 72 BPM Maximum Heart Rate Achieved was: 118 BPM Baseline blood pressure was 142/82 mmHg Post Stress Blood Pressure was 148/80 mmHg Termination: Protocol complete. Resting ECG: Normal sinus rhythm minor ST abnormality. Post ECG: No diagnostic ST changes. Perfusion Findings: A TID of 1.13 was automatically calculated. defect 1: Size is medium. Severity is moderate to severe in intensity. Location ofdefect is in the basal inferior segment and mid inferior segment. Reversibility is notpresent, defect is fixed. Type of defect is infarction. LV Function: Left ventricular ejection fraction is 48 %. There is mild LV dysfunctionwith inferior akinesis. CONCLUSIONS: Normal sinus rhythm minor ST abnormality. No diagnostic ST changes. Left ventricular ejection fraction is 48 %. There is mild LV dysfunctionwith inferior akinesis. Size is medium. Severity is moderate to severe in intensity. Location ofdefect is in the basal inferior segment and mid inferior segment. Reversibility is notpresent, defect is fixed. Type of defect is infarction. Electronically Signed By: Nayan Gaffney MD, [facility] 03/08/2025 1:41:34 PM CDT Electronically Signed By: Nayan Gaffney MD, [facility] 03/08/2025 1:41:34 PM CDT us Aileen Limon MD [facility] [place] PROCEDURES Final R esult * POCT lipid panel (02/05/2025 10:35 AM CDT) Cholesterol, POC 105 mg/dL HDL, POC 24 mg/dL Triglycerides, POC 139 mg/dL LDL Cholesterol POC 53 mg/dL Chol/HDL Ratio, POC 2.2 Non-HDL Cholesterol, POC 81 mg/dL Cholesterol Total, POC 105 mg/dL Capillary blood 02/05/2025 1 0:35 AM CDT Aileen Limon MD POINT OF CARE TEST ORDERA BLES Final Result from Last 3 Months Insurance [facility] [facility] Care Teams Auctioneer Automobile Relationship Specialty Start Date End Date Jhony Bryan MD [address] [place] [address] PCP - General Family Medicine 10/02/21
--- OUTSIDE RECORDS SUMMARY | 2025-03-22 02:25 | XMS_ITS | Clinical Summary ---
Author Organization [facility] Address [address] [address] Phone Care Team Providers Care Mash Tub Cooker Operator Name Role Phone Jhony Bryan MD Primary Care Provider + Allergies No known active allergies Medications Meloxicam 15 MG Tablet Take by mouth. Activ e aspirin EC 81 MG Tablet Delayed Response Take by mouth. Activ e testosterone cypionate (DEPO-TESTOSTE LUIZ) 100 MG/ML Solution by Intramuscular route every 30 days. Active clarithromycin (BIAXIN) 500 MG Tablet 0 6 Active losartan (COZAAR) 100 MG Tablet 6 Active niacin (NIASPAN) 1000 MG Tablet Controlled Release 6 Active azelastine (ASTELIN) 0.1 % Solution 2 Sprays by Nasal route 2 times daily. Use in each nostril as directed Active mometasone (NASONEX) 50 MCG/ACT SuspensionIndi cations:PNAR (perennial non-allergic rhinitis),Nasa l polyps,Hypertr ophy of inferior nasal turbinate 2 Sprays by Nasal route daily. Use in each nostril as directed. Best time after shower 3 Inhaler 3 9 Active pantoprazole (PROTONIX) 40 MG Tablet Delayed ResponseIndica tions:Laryngop haryngeal reflux,PNAR (perennial non-allergic rhinitis),Hype rtrophy of inferior nasal turbinate,Nasa l polyps 1 tab po QD 30-60' AC largest meal 90 Tab 3 9 Active pilocarpine (SALAGEN) 5 MG TabletIndicati ons:Sicca syndrome (HCC) TAKE 1 TO 2 TABLETS DAILY TO 3 TIMES DAILY TOLERATED FOR DRY MOUTH 540 Tab 3 9 Active famotidine (PEPCID) 40 MG TabletIndicati ons:Laryngopha ryngeal reflux,PNAR (perennial non-allergic rhinitis),Nasa l polyps,Hypertr ophy of inferior nasal turbinate TAKE 1 TABLET AT BEDTIME 90 Tab 3 9 Active Active Problems Problem Noted Date Diagnosed Date Laryngopharyngeal reflux 08/19/2017 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) 7 Nasal polyps 08/19/2017 Sicca syndrome (<HCC>) 08/19/2017 Obstructive sleep apnea Social History Tobacco Use Types Packs/Day Years Used Date Smoking Tobacco: Never Smokeless Tobacco: Never Alcohol Use Standard Drinks/Week Comments Yes 0 (1 standard drink = 0.6 oz pur e alcohol) Occassionally Sex and Gender Information Value Date Recorded Sex Assigned at Not on file Legal Sex Male 9:36 PM CDT Gender Identity Not on file Sexual Orientation Not on file 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 Not on file Not on file Not on file Last Filed Vital Signs Vital Sign Reading Time Taken Comments Blood Pressure 126/78 09/07/2019 9:59 AM CDT Pulse 90 09/07/2019 9:59 AM CDT Temperature 36.4 C (97.6 F) 09/07/2019 9:59 AM CDT Respiratory Rate 16 09/07/2019 9:59 AM CDT Oxygen Saturation 96% 09/07/2019 9:59 AM CDT Inhaled Oxygen Concentration - - Weight 130.6 kg (288 lb) 09/07/2019 9:59 AM CDT Height 176.5 cm (5' 9.5 ) 09/07/2019 9:59 AM CDT Body Mass Index 41.92 09/07/2019 9:59 AM CDT Plan of Treatment Health Maintenance Due Date Last Done Comments Hepatitis C Virus (HCV) Screening 1950 TdaP Immunization 1950 Colonoscopy 1995 Colorectal Cancer Screening 1995 Cologuard 2000 Immunochemical Fecal Occult Blood 2000 Pneumococcal Immunization (5 0+ years) (1 of 1 - PCV) 2000 Zoster Immunization (1 of 2) 2000 Influenza Immunization (#1) 2024 SARS-COV-2 Immunization ( season) 2024 10/02/2021, 02/01/2021, 01/09/2021 Respiratory Syncytial Virus (RSV) Immunization (Adult) (1 - 1-dose 75+ series) 2025 Hepatitis B Immunization Aged Out No longer eligible based on patient's age to complete this topic Meningococcal Immunization (ACWY) Aged Out No longer eligible b ased on patient's age to complete this topic Rotavirus Immunization Aged Out No lo nger eligible based on patient's age to complete this topic Insurance MEDICARE C [employer]ET[employer] Care Teams Mash Tub Cooker Operator Relationship Specialty Start Date End Date Jhony Bryan MD [address] [place] [address] PCP - General Family Medicine 01/28/16
--- OUTSIDE RECORDS SUMMARY | 2025-03-22 02:25 | XMS_ITS | Encounter Summary ---
Author Organization [facility] Address [address] [place] [address] Care Team Providers Care Reporting Analyst Name Role Phone Jhony Bryan MD Primary Care Prov ider Encounter Details Date Type Department Care Team (Late st Contact Info) Description 03/09/2025 Results Follow-Up [facility] Cardiology at [address] [place] [id number] Petros Titus MD [address] [id number] Social History Tobacco Use Types Packs/Day Years Used Date Smoking Tobacco: Never Smokeless Tobacco: Never Sex and Gender Information Value Date Recorded Sex Assigned at Not on file 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
--- OUTSIDE RECORDS SUMMARY | 2025-03-22 02:25 | XMS_ITS | Clinical Summary ---
Author Organization [facility] Address [facility] [place] [address] Care Team Providers Care Adding Machine Servicer Name Role Phone Unavailable Primary Care Provider Unavailabl e Social History Tobacco Use Types Packs/Day Years Used Date Smoking Tobacco: Never Assessed Sex and Gender Information Value Date Recorded Sex Assigned at Not on file Legal Sex Male 6:25 PM CDT Gender Identity Not on file Sexual Orientation Not on file Plan of Treatment Health Maintenance Due Date Last Done Comments Colorectal Cancer Screening Colonoscopy (10 Years) 1950 Hepatitis C 1968 DTaP, Tdap and Td Vaccines ( 1 - Tdap) 1969 Pneumococcal Vaccine: 50+ Ye ars (1 of 1 - PCV) 2000 Zoster Vaccines (1 of 2) 2000 COVID-19 Vaccine ( - 2023-2 5 season) 2024 RSV Immunization or 60+ Years (1 - 1-dose 75+ series) 2025 Meningococcal B Vaccine Aged Out No l onger eligible based on patient's age to complete this topic Meningococcal Vaccine Aged Out No malinda nahed eligible based on patient's age to complete this topic RSV Immunizations Under 20 Months Aged Out No longer eligible based on patient's age to complete this topic
--- OUTSIDE RECORDS SUMMARY | 2025-03-22 02:25 | XMS_ITS | Referral Summary ---
Author Organization [address] Address [address] [facility] [address] [place] [address] Care Team Providers Care Sewing Machine Bobbin Winder Name Role Phone Jhony Bryan MD Primary Care Prov ider Encounters Date Type Department Care Team Description 03/09/2025 Telephone [facility] Cardiology [address] [place] [address] [address] [place] [address] Aileen Limon MD 03/09/2025 Results Follow-Up [facility] Cardiology at [address] [place] [address] Aileen Limon MD 03/08/2025 8:15 AM CDT Ancillary Procedure [facility] [address] [place] [address] [address] [place] [address] Coronary artery disease involving [place] coronary artery of [place] heart without angina pectoris; Chest pressure 02/05/2025 11:15 AM CDT Office Visit [facility] Cardiology [address] [place] [address] [address] [place] [address] Aileen Limon MD Coronary artery disease involving [place] coronary artery of [place] heart without angina pectoris (Primary Dx); Atherosclerosis of [place] coronary artery without angina pectoris, unspecified whether [place] or transplanted heart; Mixed hyperlipidemia; Primary hypertension; Morbid obesity with BMI of 40.0-44.9, adult (HCC); ANNIE on CPAP; Chest pressure from Last 3 Months Allergies No known active allergies Medications losartan-hydro [...] 1 TABLET BY MOUTH DAILY NEEDED 10/15/20 22 Active testosterone cypionate (DEPO-TESTOTER ONE) 200 mg/mL injection INJECT 200 MG INTRAMUSCULARLY ONCE EVERY 3 WEEKS 10/19/20 22 Active coenzyme Q10 100 mg capsule Take 1 capsule (100 mg total) by mouth daily Active qtfvpxyj99-qht g-Phhaooro-fme al 27 mg iron-1.13 mg-581.92 mg capsule Take by mouth Active omega-3 fatty acids-fish oil 300-1,000 mg capsule Take 2 capsules (2 g total) by mouth daily Active metFORMIN XR (GLUCOPHAGE XR) 500 mg 24 hr tablet Take 2 tablets (1,000 mg total) by mouth daily 12/08/19 25 Active calcium carbonate-meena min D3 1500 mg (600 mg elemental) -200 units per tablet Take 1 tablet by mouth daily Active glucosamine HCl 1,500 mg tablet Take by mouth Active lutein-zeaxant hin 25-5 mg capsule Take by mouth Active ijkva-g-enxewx osidase 600 unit capsule Take by mouth Act justino gtcme-K-skreme osidase (BEANO ORAL) Take by mouth Active Active Problems Problem Noted Date Diagnosed Date Chest pressure 02/05/2025 Coronary artery disease invo lving [place] coronary artery of [place] heart without angina pectoris 10/26/2022 Abnormal stress test 10/15/2021 Primary hypertension 10/15/2021 Mixed hyperlipidemia 10/15/2021 ANNIE on CPAP 10/15/2021 Morbid obesity with BMI of 40.0-44.9, adult 09/29 Preoperative cardiovascular examination 10/15/20 21 Resolved Problems Problem Noted Date Diagnosed Date Resolved Date Dyslipidemia 10/15/2021 01/26/2022 Social History Tobacco Use Types Packs/Day Years Used Date Smoking Tobacco: Never Smokeless Tobacco: Never Tobacco Cessation:Counseling Given: Not Answered Sex and Gender Information Value Date Recorded Sex Assigned at Not on file 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 Gender Identity Not on file Sexual Orientation Not on file Last Filed Vital Signs [...] 02/05/2025 11:38 AM CDT Plan of Treatment Not on file Procedures Procedure Name Priority Date/Time Associated Diagnosis Comments NM MPI SPECT (REST AND/OR STRESS) MULTIPLE STUDIES Schedule Routine, Read Routine (OP Routine) 03/08/2025 9:38 AM CDT Coronary artery disease involving [place] coronary artery of [place] heart without angina pectoris Chest pressure POCT LIPID PANEL Routine 02/05/2025 10:3 5 AM CDT Atherosclerosis of [place] coronary artery without angina pectoris, unspecified whether [place] or transplanted heart Coronary artery disease involving [place] coronary artery of [place] heart without angina pectoris Mixed hyperlipidemia from Last 3 Months Results * NM MPI SPECT (Rest and/or Stress) Multiple Studies (03/08/2025 9:38 AM CDT) Anatomical Region Laterality Modality Body N/A Nuclear Medicine 03/08/2025 8:40 AM CDT Narrative 03/08/2025 2:26 PM CDT [facility] Cardiology [address] [facility] [address], [place] [address] [address] [facility] [address], [place] [address] P:[phone] P:[phone] MPI Imaging Report Patient Name: NATALIYA AVILES L : 1950 Study Date: 03/08/2025 8:40:42 AM Gender: M Tech: [facility] Location: [facility] Provider: AILEEN LIMON Height(Cm): 175.3 BSA: Weight(Kg): [...] Cholesterol, Palpitations, I25.10 Atherosclerotic heart disease of [place] coronary artery without angina pectoris, and R07.89 [...] infarction. Electronically Signed By: Nayan Gaffney MD, [facility] 03/08/2025 1:41:34 PM CDT Electronically Signed By: Nayan Gaffney MD, [facility] 03/08/2025 1:41:34 PM CDT Procedure Note Nayan Gaffney MD - 03/08/2025 [facility] Cardiology [address] [facility] [address], [place] [address] [address] [facility] [address], [place] [address] P:[phone] P:[phone] MPI Imaging Report Patient Name: NATALIYA VAILES L : 1950 Study Date: 03/08/2025 8:40:42 AM Gender: M Tech: DANILO SINGHMT Location: [facility] Provider: ASHLYRUTHIEEW Height(Cm): 175.3 BSA: Weight(Kg): 121.1 BMI: 39.41 Order Provider: ASHLYAILEEN PHYSICIAN: Referring Physician: Dr. Bryan. HCG Physician: Demetrius Limon M.D. Interpreting Physician: Nayan Gaffney M.D.,F.A.C.C. Stress Supervision: Nayan Gaffney M.D.,F.A.C.C. PROCEDURES: Pharmacologic SPECT Report: Myocardial perfusion imaging with Tc99M Sestamibi SPECT at rest and stresspost regadenoson (Lexiscan) infusion. INDICATIONS: Hypertension, Diabetes, Family Hx CAD, High Cholesterol, Palpitations,I25.10 Atherosclerotic heart disease of [place] coronary artery without anginapectoris, and R07.89 Other [...] infarction. Electronically Signed By: Nayan Gaffney MD, [facility] 03/08/2025 1:41:34 PM CDT Electronically Signed By: Nayan Gaffney MD, [facility] 03/08/2025 1:41:34 PM CDT Aileen Limon MD IMG NM PROCEDURES Final R esult * POCT [...] Final Result from Last 3 Months Insurance [facility] [id number] [place] [address] HEALTHCARE HEALTHCARE Care Teams Sewing Machine Bobbin Winder Relationship Specialty Start Date End Date Jhony Bryan MD [address] [place] [address] PCP - General Family Medicine 10/02/21
[2025-03-22 07:27] LABS: Basophils Absolute Auto 0.1 K/mm3 (0.0-0.1); Basophils Percent Auto 0.9 % (0.2-1.2); Eosinophils Absolute Auto 0.3 K/mm3 (0-0.3); Eosinophils Percent Auto 5.4 % (0-4.4); Hematocrit 42.8 % (42.0-52.0); Hemoglobin 13.2 g/dL (14.0-18.0); Immature Granulocyte Absolute 0.01 K/mm3 (0.00-0.031); Immature Granulocyte Percent A 0.2 % (0-0.5); Lymphocytes Percent Auto 28.7 % (18.3-44.2); Mean Corpuscular HGB Conc 30.8 g/dl (32-36); Mean Corpuscular Volume 84.3 fl (80-100); Mean Platelet Volume 10.2 fl (7.4-10.4); Monocytes Absolute Auto 0.6 K/mm3 (0.1-0.6); Monocytes Percent Auto 10.8 % (2.6-8.5); Platelet Count Result 207 k/mm3 (150-375); Red Blood Count 5.08 M/mm3 (4.6-6.20); Red Cell Distribution Width 16.4 % (11.5-14.5); White Blood Count 5.6 K/mm3 (4.5-10.0)
[2025-03-22 07:35] LABS: Anion Gap 10 mmol/L (4-12); Blood Urea Nitrogen 19 mg/dL (9-20); Calcium 9.4 mg/dL (8.4-10.2); Carbon Dioxide 26 mmol/L (22-30); Chloride 102 mmol/L (98-107); Estimated CRCL calculation 85 ml/min; Estimated Glomerular Filt Rate > 60; Glucose 154 mg/dL (65-110); Sodium 138 mmol/L (137-145)
--- NOTE | 2025-03-22 08:53 | P.SEDATION_ITS ---
Moderate Sedation Note-Pt Data Patient Data Allergies Allergy/AdvReac Type Severity Reaction Status Date / Time No Known Allergies Allergy Unknown Verified 03/21/25 11:13 Home Medications ?Medication ?Instructions ?Recorded ?Confirmed ?Type mometasone 50 mcg/actuation nasal 50 mcg intranasal QAM 09/16/20 03/21/25 History spray azelastine 205.5 mcg (0.15 %) 2 spray intranasal PRN PRN 09/30/21 03/21/25 History nasal spray Congestion cyanocobalamin (vitamin B-12) 5,000 mcg PO DAILY 09/30/21 03/21/25 History 1,000 mcg tablet (Vitamin B-12) latanoprost 0.005 % eye drops 1 drp EACH EYE HS 09/30/21 03/21/25 History multivitamin 1 tablet PO DAILY 09/30/21 03/21/25 History omega-3 fatty acids-vitamin E 1 cap PO DAILY 09/30/21 03/21/25 History 1,000 mg capsule aspirin 81 mg tablet,delayed 81 mg PO DAILY 01/19/22 03/21/25 History release (Adult Aspirin Regimen) lutein 6 mg capsule 6 mg PO DAILY 01/19/22 03/21/25 History coQ10 (ubiquinol) 100 mg capsule 200 mg PO DAILY 04/06/22 03/21/25 History glucosamine sulf dipot 1 cap PO BID 04/20/22 03/21/25 History chlr,msm,chond 550 mg-C 30 mg-mari 1 mg capsule (Glucosamine Chondroitin) pilocarpine HCl 5 mg tablet 5 mg PO QID 04/20/22 03/21/25 History calcium 500 mg tablet 600 mg PO DAILY 09/01/22 03/21/25 History pantoprazole 40 mg tablet,delayed See Rx Instructions .Route 01/29/23 03/21/25 Rx release .COMPLEX #90 tabs famotidine 40 mg tablet See Rx Instructions .Route 06/06/23 03/21/25 Rx .COMPLEX #90 tabs cholecalciferol (vitamin D3) 50 100 mcg PO DAILY 09/16/23 03/21/25 History mcg (2,000 unit) capsule vitamin B complex 1 cap PO DAILY 09/16/23 03/21/25 History peg 400-propylene glycol (PF) 0.4 1 drp EACH EYE DAILY PRN dry eye(s) 06/02/24 03/21/25 History %-0.3 % eye drops in a dropperette (Systane (PF)) metformin 500 mg tablet,extended 1,000 mg (2 x 500 mg) PO DAILY 06/14/24 03/21/25 Rx release 24 hr #180 tabs atorvastatin 20 mg tablet 20 mg PO DAILY #90 tabs 06/23/24 03/21/25 Rx sildenafil 100 mg tablet See Rx Instructions .Route 10/20/24 03/21/25 Rx .COMPLEX #6 tabs testosterone cypionate 200 mg/mL 200 mg IM .once every 3 weeks #4 mL 01/09/25 03/21/25 Rx intramuscular oil (Depo-Testosterone) losartan 100 See Rx Instructions .Route 03/07/25 03/21/25 Rx mg-hydrochlorothiazide 25 mg tablet .COMPLEX #90 tabs Sedation/Anesthesia: No previous sedation/anesthesia problems (including family history). [facility] Past Medical History Medical History Carpal tunnel syndrome on both sides Chronic GERD Fungal infection History of colon polyps HTN (hypertension) Knee cartilage, torn, right Male erectile dysfunction, unspecified Normal colonoscopy 09/17 Repeat 09/27 Obesity Occult blood in stools ANNIE on CPAP Osteoarthritis of left hip 12/20 mild Osteoarthritis of shoulders, bilateral Other ill-defined heart diseases Diastolic dysfunction Echo 11/18 Presbycusis, bilateral Sacrocoxalgia of right side of sacrum Testicular hypofunction Type 2 diabetes mellitus without complications Surgical History Surgical History H/O shoulder surgery History of arthroplasty of right shoulder (09/21/23) 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) 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P total knee replacement right Family History Family History Father Acute myocardial infarction Asthma Cerebrovascular accident Heart disease Hypertension Mother Heart disease Hypertension Sibling Hypertension Other Colon polyp Social History Social History Smoking status: Never smoker Second hand tobacco smoke exposure: No Additional smoking assessment comments: PT DENIES ALL FORMS OF TOBACCO USE Alcohol intake: never Drinks per week: 1 Alcohol use details: STATES MAYBE 1-2/MONTH Substance use: never Substance use type: does not use Do You Feel Safe in your Home?: Yes Lack of Transportation: No Lack of Food: Never True Current Housing: I Have Housing Concerned About Future Housing: No Difficulty Paying Gas/Electric Bills: No Difficulty Paying for Meds: No Currently Unemployed: No Education: Decline to Answer Difficulty w/ Childcare or Family Care: No Living arrangements: with family Additional living arrangements comments: Occupation/Education: retired Gender identity (if verbalized by the patient): Male Sexual Orientation (if Verbalized by the Patient): Straight or Heterosexual Spiritual care concerns: No Agree to blood products: Yes Mod Sed Physical Exam Physical Exam Pre Procedural Exam: Normal: Lungs, Heart Rate and Heart Rhythm Hours since solid foods: 12 Hours since liquid intake: 12 Mallampati Classification: class III Internal Medicine - PN: Obj Da Vital Signs Vital Signs: Vital Signs - 24 hr 03/22/25 07:21 Temperature 36.4 C Pulse Rate 69 Respiratory Rate 16 Blood Pressure 147/90 H Pulse Oximetry 97 Oxygen Delivery Room Air Labs 03/22/25 07:22 03/22/25 07:22 Labs: Laboratory Results - last 24 hr 03/22/25 07:22 WBC 5.6 RBC 5.08 Hgb 13.2 L Hct 42.8 MCV 84.3 MCH 26.0 MCHC 30.8 L RDW 16.4 H Plt Count 207 MPV 10.2 Immature Gran % (Auto) 0.2 Neut % (Auto) 54.0 Lymph % (Auto) 28.7 [place] % (Auto) 10.8 H Eos % (Auto) 5.4 H Baso % (Auto) 0.9 Lymph # (Auto) 1.60 [place] # (Auto) 0.6 Eos # (Auto) 0.3 Baso # (Auto) 0.1 Abs Immat Gran (auto) 0.01 Absolute Neuts (auto) 3.0 Absolute Nucleated RBC 0.000 Nucleated RBC % 0.0 Sodium 138 Potassium 4.0 Chloride 102 Carbon Dioxide 26 Anion Gap 10 BUN 19 Creatinine 0.82 Estim Creat Clear Calc 85 Estimated GFR > 60 Glucose 154 H Calcium 9.4 ASA Classification/Sedation ASA Classification/Sedation ASA Class: III Emergent: No Risks: Risks, benefits and alternatives explained and patient/family accepted plan for sedation. Patient re-evaluated immediately prior to sedation.
--- NOTE | 2025-03-22 08:53 | WPDHPUPDATE1 ---
History and Physical Update Update Date/Time: 03/22/25 08:53 History and Physical has been reviewed, including an updated exam of the patient. There are NO changes in the patient's condition. Risks, benefits, and alternatives have been discussed and questions answered. Patient agrees to proceed with procedure.
--- NOTE | 2025-03-22 12:00 | WPDCARDPROC ---
Cardiac Cath Procedure Note Date of procedure:: 03/22/25 Performing physician:: CATHETERIZATION LABORATORY REPORT Procedure Date: 03/22/2025 Referring Physician: Dr. Titus Anesthesia: Versed and Fentanyl were ordered and given in my presence at 0910, procedure ended at 0933. Supervision of nurse, Allison Calderon monitored moderate sedation with 2mg Versed and 50mcg Fentanyl was provided for 23 minutes. Pre-op Diagnosis: Abnormal stress test Post-op Diagnosis: And normal stress test Procedure(s): Left heart catheterization with coronary angiography Access Site: Right radial artery Brief History and Clinical Indications: 74-year-old man with coronary artery disease had chest pain leading to nuclear stress test showing inferior infarct and transient ischemic dilatation now referred for cardiac catheterization with possible PCI. All risks, benefits and alternatives to left heart catheterization with or without percutaneous coronary intervention was discussed at length with the patient. Risk of complications including but not limited to bleeding, infection, arrhythmia, stroke, worsening kidney function, blood loss, groin hematoma, limb loss, emergency coronary artery bypass grafting, and even were discussed with the patient and all questions were answered. The patient understood and wished to proceed. Time out called, patient name, date of , medical record number, allergies, procedure performed, identify Wood Experimental Mechanic, patient and staff member concurred with accurate data, procedure carried on. Findings: LEFT HEART CATHETERIZATION FINDINGS: 1. Left main: The left main coronary artery is widely patent. 2. Left anterior descending: The LAD provides 3 small caliber diagonal branches and 1 large septal branch. The diagonal branches have mild coronary artery disease. The LAD in its proximal body has 30-40% heavily calcified stenosis. The mid LAD has 20-30% stenosis in the long segment myocardial bridging. The distal LAD tapers into a small vessel. 3. Left circumflex: The left circumflex artery is a moderate caliber non dominant vessel that provides 2 main OM branches. The left circumflex in its proximal body has 50% stenosis in a highly tortuous segment and in its distal segment leading into the OM2 branch has a heavily calcified 80-90% stenosis that is also in highly tortuous segment. OM1 is a moderate caliber vessel with 20-30% proximal stenosis. 4. Ramus intermedius: The ramus branch is a moderate caliber vessel with 50-60% stenosis in its proximal body. 5. Right coronary artery: The RCA is a moderate caliber dominant vessel with a chronic total occlusion in its midbody right after the takeoff of the RV marginal branch. In its proximal body right at the ostium there appears to be Vieussens ring that provides the majority of the collateral flow to the distal right PDA is which retrograde fills the distal RCA. There also appears to be rsga-ti-[id number] collateral flow via large septal commercial roofing estimator branch from the LAD, apical LAD, and left circumflex system. 6. Left ventricle: A. End-diastolic pressure 24 mmHg. B. LV gram deferred. C. No significant gradient across aortic valve on catheter pullback. 6. Opening AO pressure 131/75 and closing AO pressure 117/70 Description of Procedure: Informed consent signed and placed in the chart. Patient transferred to geochemical laboratory technician room. Prepped and draped in usual sterile fashion. 2% lidocaine injected subcutaneously in right wrist area. 22-gauge venipuncture catheter used to access the right radial artery with the Seldinger technique. 6-FR slender sheath placed in right radial artery. Nitroglycerin 200mcg, Verapamil 2.5mg, and Heparin 5000U was given intraarterial through the sheath. J wire advanced under fluoroscopy. 5F TIG diagnostic catheter engaged Left Main Coronary Artery. 5F JR4 diagnostic catheter engaged Right Coronary Artery Multiple orthogonal angiogram obtained and reviewed 5F JR4 diagnostic catheter crossed aortic valve to obtain LVEDP, LV angiogram deferred. Hemostasis was achieved by application of TR band. Assessment: Stable coronary artery disease Post Operative Condition: Stable No significant blood loss Disposition: Home Plan: Patient's coronary anatomy is essentially unchanged compared to 08/2022. Given the absence of exertional symptoms and stable coronary artery disease, decision was made to continue with medical therapy. Recommend obtaining a transthoracic echocardiogram to better define his left ventricular systolic function. Should he develop exertional symptoms along with abnormal left ventricular systolic function, can consider PCI to his left circumflex/OM2 at [facility] given the degree of tortuosity and calcification. Sebastian Coulter Interventional Cardiology
== END 2025-03-22 13:15 | disposition home or self-care (01) ==
PROVIDERS: PCP Family Medicine Adolescent Medicine; Visit Provider Internal Medicine
PROC: 4A023N7 Measurement of Cardiac Sampling and Pressure, Left Heart, Percutaneous Approach (ICD-10-PCS; CPT 93452; principal; 2025-03-22 08:30)
DX: I25.10 Atherosclerotic heart disease of native coronary artery without angina pectoris (principal); I11.9 Hypertensive heart disease without heart failure; E29.1 Testicular hypofunction; E11.9 Type 2 diabetes mellitus without complications; G56.03 Carpal tunnel syndrome, bilateral upper limbs; K21.9 Gastro-esophageal reflux disease without esophagitis; N52.9 Male erectile dysfunction, unspecified; G47.33 Obstructive sleep apnea (adult) (pediatric); M16.12 Unilateral primary osteoarthritis, left hip; M19.012 Primary osteoarthritis, left shoulder; M19.011 Primary osteoarthritis, right shoulder; Z79.82 Long term (current) use of aspirin; Z79.84 Long term (current) use of oral hypoglycemic drugs; Z99.89 Dependence on other enabling machines and devices; Z98.890 Other specified postprocedural states; Z86.0100 Personal history of colon polyps, unspecified; Z83.719 Family history of colon polyps, unspecified; Z82.49 Family history of ischemic heart disease and other diseases of the circulatory system
CPT/HCPCS: 36415; 80048; 85025; 93458; C1769; C1887; C1894; J1644; J2003; J2250; J2305; J3010; J7040

== ENCOUNTER 2025-06-18 13:29 | Emergency (ER) | payer OTHER, SELFPAY ==
--- NOTE | ~2025-06-18 | XR_ITS ---
XR wrist RT min 3V 06/18/2025 14:22 Indication: Right wrist pain Procedure: 4 views right wrist Comparison: No prior studies for comparison. Findings: There is an old ulnar styloid avulsion fracture. There is an triquetral fracture, age-indet erminate. There is osteoarthritis of the triscaphe, first carpal metacarpal and MCP joints. Impression: 1: Age-indeterminate triquetral fracture. Correlate for point tenderness. 2: Old ulnar styloid avulsion fracture. 3: Polyarticular osteoarthritis. Reviewed, dictated and finalized at location A. Impression: 1: Age-indeterminate triquetral fracture. Correlate for point tenderness. 2: Old ulnar styloid avulsion fracture. 3: Polyarticular osteoarthritis.
[2025-06-18 13:35] VITALS: BP 144/78; PULSE 71; RESP 16; TEMP 37; O2SAT 98
--- NOTE | 2025-06-18 13:47 | ED_ITS ---
HPI - Fall General Chief Complaint: Fall Stated Complaint: Fall Injuries Time Seen by Provider: 06/18/25 13:47 Source: patient Mode of arrival: ambulatory Limitations: no limitations History of Present Illness HPI Narrative: 75 yo M presents with pain to R wrist. Pt slipped on wet outdoor rug on front porch and fell forward. Put hands down to catch himself, fell forward landing on nose. small laceration to R eyebrow from sunglasses. Initially had pain to L wrist but resolved. L nare bleed for about 10 minutes and has resolved. Ambulatory with steady gait. did not hit head, denies LOC. Was able to get up on his own. Was wearing crocs and states they caused him to fall. All systems reviewed and negative except as noted above. Related Data Home Medications ?Medication ?Instructions ?Recorded ?Confirmed ?Last Taken ?Type mometasone 50 mcg/actuation nasal 50 mcg intranasal QAM 09/16/20 06/18/25 03/21/25 History spray azelastine 205.5 mcg (0.15 %) 2 spray intranasal PRN PRN 09/30/21 06/18/25 03/21/25 History nasal spray Congestion cyanocobalamin (vitamin B-12) 5,000 mcg PO DAILY 09/30/21 06/18/25 03/21/25 History 1,000 mcg tablet (Vitamin B-12) latanoprost 0.005 % eye drops 1 drp EACH EYE HS 09/30/21 06/18/25 03/21/25 History multivitamin 1 tablet PO DAILY 09/30/21 06/18/25 03/21/25 History omega-3 fatty acids-vitamin E 1 cap PO DAILY 09/30/21 06/18/25 03/21/25 History 1,000 mg capsule aspirin 81 mg tablet,delayed 81 mg PO DAILY 01/19/22 06/18/25 03/21/25 History release (Adult Aspirin Regimen) lutein 6 mg capsule 6 mg PO DAILY 01/19/22 06/18/25 03/21/25 History coQ10 (ubiquinol) 100 mg capsule 200 mg PO DAILY 04/06/22 06/18/25 03/21/25 History glucosamine sulf dipot 1 cap PO BID 04/20/22 06/18/25 03/21/25 History chlr,msm,chond 550 mg-C 30 mg-mari 1 mg capsule (Glucosamine Chondroitin) pilocarpine HCl 5 mg tablet 5 mg PO QID 04/20/22 06/18/25 03/21/25 History calcium 500 mg tablet 600 mg PO DAILY 09/01/22 06/18/25 03/21/25 History cholecalciferol (vitamin D3) 50 100 mcg PO DAILY 09/16/23 06/18/25 03/21/25 History mcg (2,000 unit) capsule vitamin B complex 1 cap PO DAILY 09/16/23 06/18/25 03/21/25 History peg 400-propylene glycol (PF) 0.4 1 drp EACH EYE DAILY PRN dry eye(s) 06/02/24 06/18/25 03/21/25 History %-0.3 % eye drops in a dropperette (Systane (PF)) Allergies Allergy/AdvReac Type Severity Reaction Status Date / Time No Known Allergies Allergy Unknown Verified 06/18/25 13:42 Review of Systems Review of Systems: CONSTITUTIONAL: Denies fever, chills, or sweats. EYES: Denies visual changes, redness, or discharge. ENT: Denies rhinorrhea, congestion, sore throat, or otalgia. Reports nose bleed from left nare, nasal contusion CARDIOVASCULAR: Denies chest pain, palpitations, or edema. RESPIRATORY: Denies cough or dyspnea. GASTROINTESTINAL: Denies abdominal pain, nausea, vomiting, or diarrhea. GENITOURINARY: Denies dysuria or hematuria. SKIN: Denies rash or itching. MUSCULOSKELETAL: Denies back pain. Reports Pain to right wrist NEUROLOGIC: Denies headache, numbness, or weakness. PSYCHIATRIC: Denies anxiety or depression. All other systems reviewed are negative, except as documented in HPI. [facility] Past Medical History Medical History (Updated 06/18/25 @ 14:56 by Niki Bernard NP) Unilateral primary osteoarthritis, right knee Osteoarthritis of shoulders, bilateral Fungal infection Knee cartilage, torn, right Carpal tunnel syndrome on both sides Osteoarthritis of left hip 12/20 mild Normal colonoscopy 09/17 Repeat 09/27 Male erectile dysfunction, unspecified Other ill-defined heart diseases Diastolic dysfunction Echo 11/18 Type 2 diabetes mellitus without complications Presbycusis, bilateral Sacrocoxalgia of right side of sacrum Testicular hypofunction History of colon polyps Occult blood in stools Obesity Chronic GERD ANNIE on CPAP HTN (hypertension) Surgical History Surgical History (Updated 04/17/25 @ 06:02 by Jhony Bryan MD) 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) History of arthroplasty of right shoulder (09/21/23) S/P total knee replacement right History of total left knee replacement (04/2022) H/O shoulder surgery Family History Family History Father Acute myocardial infarction Asthma Cerebrovascular accident Heart disease Hypertension Mother Heart disease Hypertension Sibling Hypertension Other Colon polyp Social History Social History Smoking status: Never smoker Second hand tobacco smoke exposure: No Additional smoking assessment comments: PT DENIES ALL FORMS OF TOBACCO USE Alcohol intake: never Drinks per week: 1 Alcohol use details: STATES MAYBE 1-2/MONTH Substance use: never Substance use type: does not use Do You Feel Safe in your Home?: Yes Lack of Transportation: No Lack of Food: Never True Current Housing: I Have Housing Concerned About Future Housing: No Difficulty Paying Gas/Electric Bills: No Difficulty Paying for Meds: No Currently Unemployed: No Education: Decline to Answer Difficulty w/ Childcare or Family Care: No Living arrangements: with family Additional living arrangements comments: Occupation/Education: retired Gender identity (if verbalized by the patient): Male Sexual Orientation (if Verbalized by the Patient): Straight or Heterosexual Spiritual care concerns: No Agree to blood products: Yes Comments At time of signature, agree with nursing past medical, surgical, social and family history. There is no relevant family history pertinent to the presenting complaint. Exam Narrative: GENERAL: This is a well-nourished, well-developed patient, in no apparent distress. HEAD: normocephalic, atraumatic. EYES: PERRL. Sclera clear/white. Vision is grossly intact. Extraocular motions intact EARS: External ears normal, auditory canals clear and without drainage, TMs normal without perforation. Hearing grossly intact. NOSE: External nose normal with no obvious nasal discharge, no rhinorrhea. Mild swelling with contusion to anterior aspect of nose without displacement. Dried blood to left nare. Nares patent. NECK: Neck supple, non-tender without lymphadenopathy, masses or thyromegaly. CARDIOVASCULAR: Regular rate and rhythm without murmurs, gallops, or rubs. RESPIRATORY: Clear to auscultation. Breath sounds equal bilaterally. No wheezes, rales, or rhonchi. SKIN: warm, Dry, intact with no suspicious lesions or rash, good texture and turgor. NEURO: awake, alert, and oriented to person, place and time. There were no obvious focal neurologic abnormalities. EXTREMITIES: Tenderness to right wrist distal aspect without deformity. Mild swelling noted. Range of motion intact and distal neurovascularly intact Course Course Level of Care: [facility] Visit Vital Signs Vital signs: Vital Signs Temperature 37.0 C 06/18/25 13:35 Pulse Rate 71 06/18/25 13:35 Respiratory Rate 16 06/18/25 13:35 Blood Pressure 144/78 H 06/18/25 13:35 Pulse Oximetry 98 06/18/25 13:35 Oxygen Delivery Room Air 06/18/25 13:35 Temperature 37.0 C 06/18/25 13:35 Pulse Rate 71 06/18/25 13:35 Respiratory Rate 16 06/18/25 13:35 Blood Pressure 144/78 H 06/18/25 13:35 Pulse Oximetry 98 06/18/25 13:35 Oxygen Delivery Room Air 06/18/25 13:35 Reviewed MDM - Fall MDM Narrative Medical decision making narrative: Discussed x-ray results with patient. Possible triquetral bone fracture. Patient does have tenderness. Place in OCL splint. Neurovascular intact pre and post splint application. Refer to orthopedics for follow-up. Patient was offered x-ray of nose to rule out nasal bone fracture but he did not feel was necessary. He has not had any bleeding from nose while at [facility]. He is well-appearing, nontoxic. Imaging Data My impression: Agree with radiologist Radiologist's impression: XR wrist RT min 3V 06/18/2025 14:22 Indication: Right wrist pain Procedure: 4 views right wrist Comparison: No prior studies for comparison. Findings: There is an old ulnar styloid avulsion fracture. There is an triquetral fracture, age-indeterminate. There is osteoarthritis of the triscaphe, first carpal metacarpal and MCP joints. Impression: 1: Age-indeterminate triquetral fracture. Correlate for point tenderness. 2: Old ulnar styloid avulsion fracture. 3: Polyarticular osteoarthritis. Discharge Plan Discharge Clinical Impression: Fracture of triquetral bone of right wrist Qualifiers: Encounter type: initial encounter Fracture type: closed Fracture alignment: nondisplaced Qualified Code(s): S62.114A - Nondisplaced fracture of triquetrum [cuneiform] bone, right wrist, initial encounter for closed fracture Fall on same level Qualifiers: Encounter type: initial encounter Qualified Code(s): W18.30XA - Fall on same level, unspecified, initial encounter Contusion of nose Qualifiers: Encounter type: initial encounter Qualified Code(s): S00.33XA - Contusion of nose, initial encounter Patient Disposition: Home Condition: Stable Instructions: Wrist Fracture in Adults (ED) Additional Instructions: You have a possible fracture to the triquetral fracture bone located in the wrist. A temporary splint was placed today. Do not remove this splint. Cover this splint when showering so it does not get wet. Take tylenol every 6 to 8 hours as needed for pain. Elevate when at rest. Call and schedule follow up appointment with orthopedics. Patient Language: Dutch Prescriptions: No Action vitamin B complex Capsule 1 cap PO DAILY cholecalciferol (vitamin D3) 50 mcg (2,000 unit) Capsule 100 mcg PO DAILY mometasone 50 mcg/actuation spray,non-aerosol 50 mcg INTRANASAL QAM pilocarpine HCl 5 mg tablet 5 mg PO QID multivitamin Tablet 1 tablet PO DAILY latanoprost 0.005 % drops 1 drp EACH EYE HS cyanocobalamin (vitamin B-12) [Vitamin B-12] 1,000 mcg Tablet 5,000 mcg PO DAILY omega-3 fatty acids-vitamin E 1,000 mg Capsule 1 cap PO DAILY azelastine 205.5 mcg (0.15 %) [place],Non-Aerosol 2 spray INTRANASAL PRN PRN (Reason: Congestion) Glucosamine Chondroitin 550-30-1 mg capsule 1 cap PO BID calcium 500 mg tablet 600 mg PO DAILY Rx Instructions: 1TAB DAILY & 1 TAB EVERY OTHER NIGHT coQ10 (ubiquinol) 100 mg Capsule 200 mg PO DAILY Systane (PF) 0.4-0.3 % dropperette 1 drp EACH EYE DAILY PRN (Reason: dry eye(s)) aspirin [Adult Aspirin Regimen] 81 mg tablet,delayed release (DR/EC) 81 mg PO DAILY lutein 6 mg capsule 6 mg PO DAILY pantoprazole 40 mg tablet,delayed release (DR/EC) See Rx Instructions .ROUTE .COMPLEX Qty: 90 2RF Dose Instruction: TAKE 1 TABLET BY MOUTH DAILY Rx Instructions: TAKE 1 TABLET BY MOUTH DAILY famotidine 40 mg tablet See Rx Instructions .ROUTE .COMPLEX Qty: 90 2RF Dose Instruction: TAKE 1 TABLET BY MOUTH AT BEDTIME Rx Instructions: TAKE 1 TABLET BY MOUTH AT BEDTIME sildenafil 100 mg tablet See Rx Instructions .ROUTE .COMPLEX Qty: 6 10RF Dose Instruction: TAKE 1/2 TO 1 TABLET BY MOUTH DAILY NEEDED Rx Instructions: TAKE 1/2 TO 1 TABLET BY MOUTH DAILY NEEDED losartan-hydrochlorothiazide 100-25 mg tablet See Rx Instructions .ROUTE .COMPLEX Qty: 90 3RF Dose Instruction: TAKE 1 TABLET BY MOUTH EVERY MORNING Rx Instructions: TAKE 1 TABLET BY MOUTH EVERY MORNING testosterone cypionate [Depo-Testosterone] 200 mg/mL oil 300 mg IM .once every 3 weeks Qty: 6 1RF Paxlovid 300 mg (150 mg x 2)-100 mg tablets,dose pack See Rx Instructions PO .COMPLEX Qty: 30 0RF Rx Instructions: take TWO 150 mg tablets of nirmatrelvir with ONE 100 mg tablet of ritonavir twice daily for 5 days PO, advise do not take atorvastatin while taking Paxlovid. metformin 500 mg tablet extended release 24 hr See Rx Instructions .ROUTE .COMPLEX Qty: 180 3RF Dose Instruction: TAKE 2 TABLETS BY MOUTH DAILY Rx Instructions: TAKE 2 TABLETS BY MOUTH DAILY atorvastatin 20 mg tablet 20 mg PO DAILY Qty: 90 3RF Follow-up/Referrals: Zacarias Sabillon MD [Physician] - (schedule follow up appointment with teacher selection specialist) Jhony Bryan MD [Primary Care Provider] - Time of Disposition: 14:43
== END 2025-06-18 14:58 | disposition home or self-care (01) ==
PROVIDERS: Emergency Provider Nurse Practitioner Family; PCP Family Medicine Adolescent Medicine
DX: S62.114A Nondisplaced fracture of triquetrum [cuneiform] bone, right wrist, initial encounter for closed fracture (principal); S00.33XA Contusion of nose, initial encounter; W01.0XXA Fall on same level from slipping, tripping and stumbling without subsequent striking against object, initial encounter; I10 Essential (primary) hypertension; E11.9 Type 2 diabetes mellitus without complications; K21.9 Gastro-esophageal reflux disease without esophagitis; G47.33 Obstructive sleep apnea (adult) (pediatric); E66.9 Obesity, unspecified; M17.11 Unilateral primary osteoarthritis, right knee; M19.012 Primary osteoarthritis, left shoulder; M19.011 Primary osteoarthritis, right shoulder; M16.12 Unilateral primary osteoarthritis, left hip; Z96.653 Presence of artificial knee joint, bilateral; Z96.611 Presence of right artificial shoulder joint; Z79.82 Long term (current) use of aspirin
CPT/HCPCS: 29125; 73110; 99214; G0463